=== PATIENT | male | born 1955 | race Caucasian/White ===

== ENCOUNTER 2018-01-16 14:06 | Outpatient (CLI) | payer MEDICARE, SELFPAY ==
[2018-01-16 14:39] LABS: Anion Gap 10.3 mmol/L (3-11); BUN 2 mg/dL (7-18); CO2 29.7 mmol/L (21.0-32.0); CREATININE 0.79 mg/dL (0.70-1.30); Calcium 8.7 mg/dL (8.5-10.1); Chloride 95 mmol/L (98-107); Glucose 107 mg/dL (70-100); Potassium 3.9 mmol/L (3.5-5.1); Sodium 135 mmol/L (136-145)
[2018-01-17 15:02] LABS: Levetiracetam 12.8 mcg/mL
== END 2018-01-16 14:26 ==
PROVIDERS: PCP Family Medicine; Visit Provider Family Medicine
DX: I10 Essential (primary) hypertension (principal); G40.309 Generalized idiopathic epilepsy and epileptic syndromes, not intractable, without status epilepticus; Z51.81 Encounter for therapeutic drug level monitoring; Z79.899 Other long term (current) drug therapy
CPT/HCPCS: 36415; 80048; 80177; 80184

== ENCOUNTER 2019-11-18 02:23 | Outpatient (CLI) | payer MEDICARE, SELFPAY ==
[2019-11-18 13:52] LABS: Anion Gap 4.9 mmol/L (3-11); BUN 3 mg/dL (7-18); CO2 30.1 mmol/L (21.0-32.0); CREATININE 0.71 mg/dL (0.70-1.30); Calcium 8.5 mg/dL (8.5-10.1); Chloride 95 mmol/L (98-107); Glucose 98 mg/dL (74-106); Potassium 3.9 mmol/L (3.5-5.1); Sodium 130 mmol/L (136-145)
[2019-11-18 13:58] LABS: PHENYTOIN (DILANTIN) < 0.5 ug/mL (10.0-20.0)
[2019-11-20 14:52] LABS: Levetiracetam 16.9 mcg/mL
== END 2019-11-18 02:43 ==
PROVIDERS: Visit Provider Family Medicine
DX: I10 Essential (primary) hypertension (principal); G40.409 Other generalized epilepsy and epileptic syndromes, not intractable, without status epilepticus
CPT/HCPCS: 36415; 80048; 80177; 80185

== ENCOUNTER 2020-12-20 03:44 | Outpatient (CLI) | payer MEDICARE, SELFPAY ==
[2020-12-20 11:24] LABS: HCT 39.5 % (40.0-50.0); HGB 13.4 g/dL (13.5-17.5); MCH 31.5 pg (27.0-33.0); MCHC 33.9 % (32.0-36.0); MCV 92.9 fL (80-95); MPV 10.5 fL (8.0-11.0); Platelet Count 242 10^3/uL (130-400); RBC 4.25 10^6/uL (4.36-5.78); RDW 12.6 % (11.8-14.1); RDW-SD 43.2 fL; WBC 5.98 10^3/uL (4.4-10.8)
[2020-12-20 11:55] LABS: ALT 22 U/L (16-63); AST 15 U/L (15-37); Albumin 3.9 g/dL (3.4-5.0); Alkaline Phosphatase 145 U/L (46-116); Anion Gap 5.4 mmol/L (3-11); BUN 3 mg/dL (7-18); Bilirubin, Total 0.2 mg/dL (0.2-1.0); CO2 31.6 mmol/L (21.0-32.0); CREATININE 0.7 mg/dL (0.70-1.30); Calcium 8.7 mg/dL (8.5-10.1); Calculated LDL 82 mg/dL (<100); Chloride 96 mmol/L (98-107); Cholesterol 151 mg/dL (<200); Glucose 78 mg/dL (74-106); HDL Cholesterol 40 mg/dL (40-60); PHENOBARBITAL 36.5 ug/mL (15.0-40.0); Potassium 3.9 mmol/L (3.5-5.1); Sodium 133 mmol/L (136-145); TSH (W/Ref FT4) 0.93 uIU/mL (0.36-3.74); Total Protein 8.1 g/dL (6.4-8.2); Triglyceride 149 mg/dL (<150)
[2020-12-21 10:42] LABS: HIV-1/2 Ag & Ab Screen Negative (Negative)
[2020-12-21 11:02] LABS: Hepatitis C Ab w Rflx HCV PCR Negative (Negative)
== END 2020-12-20 03:45 | disposition home or self-care (01) ==
LOC: LBO 03:44
PROVIDERS: Visit Provider Family Medicine
DX: I10 Essential (primary) hypertension; F17.210 Nicotine dependence, cigarettes, uncomplicated; Z11.59 Encounter for screening for other viral diseases; Z11.4 Encounter for screening for human immunodeficiency virus [HIV]
CPT/HCPCS: 36415; 80053; 80061; 85027; 86803; 87389; 80177; 80184; 84443

== ENCOUNTER 2022-06-04 02:39 | Outpatient (CLI) | payer MEDICARE, SELFPAY ==
[2022-06-04 16:58] LABS: ALT 20 U/L (16-63); AST 17 U/L (15-37); Albumin 3.5 g/dL (3.4-5.0); Alkaline Phosphatase 195 U/L (46-116); Anion Gap 7.3 mmol/L (3-11); BUN 7 mg/dL (7-18); Bilirubin, Total 0.1 mg/dL (0.2-1.0); CO2 28.7 mmol/L (21.0-32.0); CREATININE 0.7 mg/dL (0.70-1.30); Calcium 8.7 mg/dL (8.5-10.1); Chloride 95 mmol/L (98-107); Estimated GFR 102.25 (mL/min/1.73m2); Glucose 98 mg/dL (74-106); Potassium 3.8 mmol/L (3.5-5.1); Sodium 131 mmol/L (136-145)
[2022-06-07 11:20] LABS: Levetiracetam 12.9 mcg/mL
== END 2022-06-04 02:40 | disposition home or self-care (01) ==
LOC: LBO 02:39
PROVIDERS: PCP Nurse Practitioner Family; Visit Provider Nurse Practitioner Family
DX: G40.309 Generalized idiopathic epilepsy and epileptic syndromes, not intractable, without status epilepticus (principal); Z51.81 Encounter for therapeutic drug level monitoring; Z79.899 Other long term (current) drug therapy
CPT/HCPCS: 36415; 80053; 80177

== ENCOUNTER 2022-12-27 19:23 | Emergency (ER) | payer MEDICARE, SELFPAY ==
[2022-12-27] VITALS (28 sets, daily range): BP systolic 131–173; BP diastolic 55–104; PULSE 72–102; RESP 18–29; TEMP 37; O2SAT 90–100
--- NOTE | 2022-12-27 19:15 | RT.EKG_ITS ---
APPROVED REPORT Exam: Resting ECG Reason for Exam: SOB Patient Location: E HR:76 bpm ECG Measurements Heart Rate 76 AXIS MT 187 P 82 QRSd 100 QRS 57 QT 374 T 52 QTc 421 Conclusion Sinus rhythm...normal P axis, V-rate 60- 99 sinus rhythm, normal axis, normal intervals, non ischemic
--- NOTE | 2022-12-27 19:45 | DI.CT_ITS ---
Exam(s) CT CHEST PE CTA EXAM: CT CHEST PE CTA CLINICAL HISTORY: right chest pain, smoker, sob. TECHNIQUE: Imaging Protocol: CT angiography of the chest was performed using pulmonary embolus aiden col. Multi planar reconstructions were performed. CONTRAST MATERIAL: Intravenous: Omnipaque 350 Contrast volume: 100 cc COMPARISON: No exams were available for comparison FINDINGS: CHEST: PULMONARY ARTERIES: There are no intraluminal filling defects to suggest acute pulmonary emboli. LUNGS: There are no confluent infiltrates nor evidence of pulmonary infarction.. There is a [address] noncalcified subpleural nodule in the right lower lobe.. There is another 3 millimeter noncalcif ied nodule in the lateral segment of the right middle lobe. No other lung nodules. No pleural effus ions. MEDIASTINUM: There is no hilar nor mediastinal adenopathy. Visualized thyroid unremarkable. CARDIAC: Heart size is upper normal. There is no pericardial effusion.Caliber of the thoracic aorta is within normal limits. There is no significant shift of the interventricular septum. PARTIALLY VISUALIZED UPPERMOST ABDOMEN: Slight thickening both adrenal glands noted. Small benign cy sts noted in the partially visualized right kidney. Does not require further workup. OSSEOUS: No significant osseous lesions.There fractures of the right 6 rib, 7th rib, 8th rib, 9th rib . These have subacute appearance and are incompletely healed. No other fractures identified.. IMPRESSION: 1. No evidence of acute pulmonary emboli. No evidence of pulmonary infarction.No pleural effusions. 2. No evidence of aortic dissection nor pericardial effusion. 3. Multiple subacute right-sided rib fractures as described above. RADIATION DOSE DELIVERED: Total DLP DATA REPOSITORY: All CT scans at this facility are submitted to the National Radiology Data Registry (NRDR) Dose Index Registry (DIR) with the [employer] (ACR). RADIATION OPTIMIZATION: All CT scans at this facility use at least one of these dose optimization te chniques: automated exposure control; mA and/or kV adjustment per patient size (includes targeted exa ms where dose is matched to clinical indication); or iterative reconstruction.
[2022-12-27 20:03] LABS: Abs Immature Grans 0.03 10^3/uL (0.0-0.06); Absolute Basophil Count 0.01 10^3/uL (0.0-0.2); Absolute Lymphocyte Count 1.84 10^3/uL (1.2-3.4); Absolute Monocyte Count 0.86 10^3/uL (0.1-0.8); Absolute Neutrophil Count 4.69 10^3/uL (1.2-6.7); Basophils % 0.1; HCT 38.8 % (40.0-50.0); HGB 13.5 g/dL (13.5-17.5); Immature Grans % 0.4; Lymphocytes % 24.8; MCH 31.6 pg (27.0-33.0); MCHC 34.8 % (32.0-36.0); MCV 91 fL (80-95); MPV 10.3 fL (8.0-11.0); Monocytes % 11.6; Neutrophils % 63.1; Platelet Count 260 10^3/uL (130-400); RBC 4.27 10^6/uL (4.36-5.78); RDW-SD 39.7 fL; WBC 7.43 10^3/uL (4.4-10.8)
[2022-12-27] MEDS: Albuterol/Ipratropium 3 ML UPD VIAL UPD (20:05)
[2022-12-27] MEDS: methylPREDNISolone SUCC 125 MG VIAL 80 MG IVP (20:05)
[2022-12-27] MEDS: Nicotine 21 MG/24 HR PATCH TD (20:05)
--- NOTE | 2022-12-27 20:16 | ED.GENADUL_ITS ---
Discharge Plan Disposition Patient Disposition: Home Discharge Details Clinical Impression: COPD exacerbation, Hyponatremia, Closed rib fracture Primary Care Provider: Maco Altamirano ED Provider: Sharmaine Leonard Home Meds and New Rx's Prescriptions: New prednisone 20 mg tablet 40 mg PO ONCE Qty: 10 0RF Flovent Diskus 100 mcg/actuation blister with device 2 inh inhalation BID Qty: 60 0RF doxycycline hyclate 100 mg tablet 100 mg PO BID Qty: 20 0RF Continued ketotifen fumarate 0.025 % (0.035 %) drops 1 drp ophthalmic (eye) BID Qty: 5 1RF Rx Instructions: administer at least 8 hours apart, prn watery eyes phenobarbital 64.8 mg tablet 259.2 mg PO HS Qty: 360 3RF levetiracetam [Keppra] 750 mg tablet 750 mg PO BID Qty: 180 3RF sucralfate [Carafate] 1 gram tablet 1 g PO BID PRN (Reason: gerd) Qty: 180 4RF escitalopram oxalate [Lexapro] 10 mg tablet 10 mg PO DAILY Qty: 90 3RF aspirin 81 mg tablet,delayed release (DR/EC) 81 mg PO BID Qty: 90 3RF vitamin B complex Capsule 1 cap PO .QOD lorazepam 1 mg tablet 1 mg PO DAILY Qty: 40 2RF Rx Instructions: 1 daily and 1 as needed for seizure Discontinued albuterol sulfate 90 mcg/actuation HFA aerosol inhaler 2 inh inhalation Q6H PRN (Reason: shortness of breath or wheezing) Qty: 18 4RF Discharge Instructions Instructions: Rib Fracture (ED), Hyponatremia (ED), COPD (Chronic Obstructive Pulmonary Disease) (ED), Pulmonary Nodules (ED) Additional Instructions: Take the Flovent twice a day as prescribed, this is your steroid inhaler Use your Combivent inhaler, 1 puff every 4-6 hours, this is your rescue inhaler for shortness of breath and wheezing Take the doxycycline as prescribed, yogurt daily while on doxycycline We talked about your diet, try to incorporate protein into 3 meals a day, having a boost or Ensure several times a day can also increase your nutrient intake Mens multivitamin with vitamin D Your sodium is low, this could be from multiple factors, I do recommend having your Keppra level reassessed by your neurologist and possibly looking into other causes of your hyponatremia, you may try increasing your sodium intake slightly after consulting with your neurologist, I am also attaching our neurologist information below Please follow-up with your doctor at your scheduled appointment, this is very important and return earlier should you have new or worsening complaints You do have pulmonary nodules on your CAT scan, this warrants additional imagi ng, let your doctor know regarding this finding Referrals: Maco Altamirano NP [Primary Care Provider] - 3 days Lizzy Germain MD [ [facility] STAFF PHYSICIAN] - Medical Decision Making 67-year-old gentleman with multiple comorbidities presenting with report of shortness of breath and right-sided chest pain Vital stable, specifically no hypoxia, hyponatremia 128, typically in the 130s, afebrile, nontoxic, CTA chest was ordered for further evaluation, evidence of seventh and ninth chronic rib fractures, pulmonary nodules, patient made aware need for follow-up Hyponatremia, patient is on Keppra which can cause hyponatremia, the differential courses adrenal insufficiency multiple other etiologies, will refer back to primary care physician, recommendation to follow-up with neurologist as well Suspect COPD exacerbation, given Solu-Medrol, 2 DuoNebs, ambulatory trial, patient was able to ambulate for a minutes and did not desat below 94%, at this time I think he stable for discharge home, he will need to follow-up closely with his primary care physician regarding his hyponatremia and COPD, will place patient on Flovent, prednisone 40, doxycycline for COPD exacerbation, Combivent inhaler, and he actually is an appointment scheduled on Saturday, he is encouraged to keep this appointment Return precautions reviewed and patient expressed understanding Discharged home in stable condition with stable vitals, will follow up with pulmonary nodules repeat assessment Discharged home in care of Also long discussion regarding patient's dietary habits HPI General Date/Time Provider Initiated Documentation: 12/27/22 19:26 . HPI Narrative: 67-year-old gentleman with history of depression smoker presents with report of shortness of breath and chest pain, has had cough for many years but worse this week with some shortness of breath and right chest pain, pleuritic. Denies known trauma. Smokes approximately 2 and half packs a day. Was wheezing and short of breath did receive a DuoNeb by EMS, no hypoxia per EMS. 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 Related Data Home Medications Medication Instructions Recorded Confirmed vitamin B complex 1 cap PO .QOD 11/13/19 12/27/22 aspirin 81 mg tablet,delayed 81 mg PO BID #90 tabs 06/08/22 12/27/22 release escitalopram oxalate 10 mg tablet 10 mg PO DAILY #90 tab-caps 06/08/22 12/27/22 (Lexapro) ketotifen fumarate 0.025 % (0.035 1 drp ophthalmic (eye) BID #5 mL 06/08/22 12/27/22 %) eye drops levetiracetam 750 mg tablet 750 mg PO BID #180 tab-caps 06/08/22 12/27/22 (Keppra) phenobarbital 64.8 mg tablet 259.2 mg (4 x 64.8 mg) PO HS #360 06/08/22 12/27/22 tab-caps sucralfate 1 gram tablet (Carafate) 1 g PO BID PRN gerd #180 tab-caps 06/08/22 12/27/22 lorazepam 1 mg tablet 1 mg PO DAILY #40 tabs 09/25/22 12/27/22 doxycycline hyclate 100 mg tablet 100 mg PO BID #20 tabs 12/27/22 fluticasone propionate 100 2 inh inhalation BID #60 ea 12/27/22 mcg/actuation blister powder for inhalation (Flovent Diskus) prednisone 20 mg tablet 40 mg (2 x 20 mg) PO ONCE #10 tabs 12/27/22 Previous Rx's Medication Instructions Recorded aspirin 81 mg tablet,delayed 81 mg PO BID #90 tabs 06/08/22 release escitalopram oxalate 10 mg tablet 10 mg PO DAILY #90 tab-caps 06/08/22 (Lexapro) ketotifen fumarate 0.025 % (0.035 1 drp ophthalmic (eye) BID #5 mL 06/08/22 %) eye drops levetiracetam 750 mg tablet 750 mg PO BID #180 tab-caps 06/08/22 (Keppra) phenobarbital 64.8 mg tablet 259.2 mg (4 x 64.8 mg) PO HS #360 06/08/22 tab-caps sucralfate 1 gram tablet (Carafate) 1 g PO BID PRN gerd #180 tab-caps 06/08/22 lorazepam 1 mg tablet 1 mg PO DAILY #40 tabs 09/25/22 doxycycline hyclate 100 mg tablet 100 mg PO BID #20 tabs 12/27/22 fluticasone propionate 100 2 inh inhalation BID #60 ea 12/27/22 mcg/actuation blister powder for inhalation (Flovent Diskus) prednisone 20 mg tablet 40 mg (2 x 20 mg) PO ONCE #10 tabs 12/27/22 Allergies Allergy/AdvReac Type Severity Reaction Status Date / Time zonisamide Allergy Unknown Verified 12/27/22 19:38 sertraline AdvReac Intermediate Verified 12/27/22 19:38 cefuroxime AdvReac Unknown Verified 12/27/22 19:38 guaifenesin AdvReac Unknown Verified 12/27/22 19:38 General Stated Complaint: SOB LAMONT: 2 PFSH All Active Problems (Updated 12/27/22 @ 22:00 by LAMBERT Elkins) Closed rib fracture (Acute) Hyponatremia (Acute) COPD exacerbation (Acute) 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 1196 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 Father No problems noted. Social History Smoking/Tobacco Use Status: Current every day Tobacco Type: cigarettes Quit status: considering quitting Second Hand Exposure: Yes Smoking risk assessment performed?: Yes Alcohol Intake: former Drug use: Never Substance use type: does not use Counseling given: Yes Caregiver/Support person: No Household members: spouse Housing: house Communication Needs: None Do you need help understanding health information?: Never Pets and animals: No Sexually active: No Do you think of yourself as: straight/heterosexual Current gender identity: decline to answer What is your relationship status?: How often do you talk on the phone with friends or family?: three or more times per week How often do you get together with friends or relatives?: decline to answer How often do you attend mormonism or congregational services?: decline to answer Do you belong to any clubs or organized social groups?: no Panel score (0-1 are the most socially isolated patients): 2 What type of physical activity do you participate in: decline to answer Duration: decline to answer Frequency: decline to answer Danette/Buddhist: No preference Special danette needs: No Seatbelt use: sometimes Helmet use: Yes Helmet use: always Drive intox or ride w/intox racing driver: No Do you feel safe in your relationship?: Yes Course Vital Signs Vital signs: Vital Signs Temperature 37.0 C 12/27/22 19:29 Pulse 80 12/27/22 19:29 Respiratory Rate 23 12/27/22 19:29 Blood Pressure 162/75 H 12/27/22 19:29 Pulse Oximetry 99 12/27/22 19:29 Temperature 37.0 C 12/27/22 19:29 Temperature Source Temporal Artery Scan 12/27/22 19:29 Pulse 80 12/27/22 19:29 Respiratory Rate 23 12/27/22 19:29 Respiratory Effort Normal 12/27/22 19:34 Blood Pressure 162/75 H 12/27/22 19:29 Pulse Oximetry 99 12/27/22 19:29 Oxygen Delivery Method Room Air 12/27/22 19:29 Oxygen Flow Rate 0 12/27/22 19:29 Pain Level 8 12/27/22 19:29 Lab/Test Results Lab/Test Results: Laboratory Tests Range/Units 12/27/22 19:30 WBC (4.4-10.8) 10^3/uL 7.43 RBC (4.36-5.78) 10^6/uL 4.27 L Hgb (13.5-17.5) g/dL 13.5 Hct (40.0-50.0) % 38.8 L MCV (80-95) fL 91 MCH (27.0-33.0) pg 31.6 MCHC (32.0-36.0) % 34.8 RDW (11.8-14.1) % 12.0 Plt Count (130-400) 10^3/uL 260 MPV (8.0-11.0) fL 10.3 Immature Gran % 0.4 Neutrophils % 63.1 Lymphocytes % 24.8 Monocytes % 11.6 Eosinophils % 0.0 Basophils % 0.1 Nucleated RBC % (0.0-0.3) % 0.0 Absolute Neutrophils (1.2-6.7) 10^3/uL 4.69 Absolute Lymphocytes (1.2-3.4) 10^3/uL 1.84 Absolute Monocytes (0.1-0.8) 10^3/uL 0.86 H Absolute Eosinophils (0.0-0.7) 10^3/uL 0.00 Absolute Basophils (0.0-0.2) 10^3/uL 0.01
[2022-12-27 20:23] LABS: ALT 16 U/L (16-63); AST 16 U/L (15-37); Albumin 3.6 g/dL (3.4-5.0); Alkaline Phosphatase 163 U/L (46-116); Anion Gap 4.4 mmol/L (3-11); BUN 1 mg/dL (7-18); Bilirubin, Total 0.2 mg/dL (0.2-1.0); CO2 31.6 mmol/L (21.0-32.0); CREATININE 0.7 mg/dL (0.70-1.30); Calcium 9.1 mg/dL (8.5-10.1); Chloride 92 mmol/L (98-107); Estimated GFR 101.62 (mL/min/1.73m2); Glucose 118 mg/dL (74-106); Lipase 25 U/L (16-77); Potassium 3.7 mmol/L (3.5-5.1); Sodium 128 mmol/L (136-145); Total Protein 7.9 g/dL (6.4-8.2); Troponin I < 50 ng/L (<or=60)
[2022-12-27] MEDS: Normal Saline - Diluent 50 ML VIAL IJ (20:55)
[2022-12-27] MEDS: Omnipaque 350 MG/ML 100 ML BTL IJ (20:56)
[2022-12-27] MEDS: Normal Saline 1,000 ML 1000 ML IV (21:00)
--- NOTE | 2022-12-27 21:13 | DI.VRAD_ITS ---
PROCEDURE INFORMATION: Exam: CTA Chest With Contrast Exam date and time: 12/27/2022 8:50 PM Age: 67 years old Clinical indication: Shortness of breath and other: Right chest pain, smoker; Patient HX: Right chest pain, smoker, SOB TECHNIQUE: Imaging protocol: Computed tomographic angiography of the chest with contrast. Exam focused on the arteries. 3D rendering (Not supervised by radiologist): MIP and/or 3D reconstructed images were created by the technologist. Contrast material: OMNIPAQUE 350; Contrast volume: 100 ml; Contrast route: INTRAVENOUS (IV); COMPARISON: No relevant prior studies available. FINDINGS: Pulmonary arteries: No acute pulmonary emboli. Aorta: Atherosclerotic disease of the thoracic aorta, without aneurysm or dissection. Lungs: Mild bilateral upper and lower lobe bronchial wall thickening, compatible with reactive airway disease or bronchitis. Pleural spaces: 5 mm noncalcified subpleural pulmonary nodule within the periphery of the right upper lobe (series 7, image 309) and 5 mm pleural based pulmonary nodule within the posterior aspect of the right upper lobe (series 7, image 209). Heart: Unremarkable. No cardiomegaly. No pericardial effusion. Lymph nodes: Unremarkable. No enlarged lymph nodes. Diaphragm: Small-sized hiatal hernia. Bones/joints: Multilevel thoracic spine degenerative disc space narrowing and osteophyte formation. Old right posterolateral 7th through 9th rib fractures. Soft tissues: Unremarkable. IMPRESSION: 1. No acute pulmonary emboli. 2. 5 mm noncalcified subpleural pulmonary nodule within the periphery of the right upper lobe (series 7, image 309) and 5 mm pleural based pulmonary nodule within the posterior aspect of the right upper lobe (series 7, image 209). 3. Mild bilateral upper and lower lobe bronchial wall thickening, compatible with reactive airway disease or bronchitis. Dictated and Authenticated by: Ernesto Mccarty MD. Ordering:PENNY Schmid MD
[2022-12-27] MEDS: Doxycycline Hyclate 100 MG CAP PO (23:01)
[2022-12-27] MEDS: Ipratropium/Albuterol 4 GM 120 PUFF INH IH (23:02)
== END 2022-12-27 23:04 | disposition home or self-care (01) ==
PROVIDERS: Emergency Provider Physician Assistant; PCP Nurse Practitioner Family
DX: J44.1 Chronic obstructive pulmonary disease with (acute) exacerbation (principal); E87.1 Hypo-osmolality and hyponatremia; M84.48XD Pathological fracture, other site, subsequent encounter for fracture with routine healing; R91.8 Other nonspecific abnormal finding of lung field; I10 Essential (primary) hypertension; I69.351 Hemiplegia and hemiparesis following cerebral infarction affecting right dominant side; F17.210 Nicotine dependence, cigarettes, uncomplicated; Z79.899 Other long term (current) drug therapy; Z79.82 Long term (current) use of aspirin
CPT/HCPCS: 36415; 71275; 80053; 83690; 93005; 94640; 96361; 96374; 99285; 84484; 85025; 93010; 99284; J2930; J3490; J7620

== ENCOUNTER 2023-01-18 04:16 | Outpatient (CLI) | payer MEDICARE, SELFPAY ==
[2023-01-18 14:32] LABS: Abs Immature Grans 0.01 10^3/uL (0.0-0.06); Absolute Basophil Count 0.02 10^3/uL (0.0-0.2); Absolute Lymphocyte Count 1.82 10^3/uL (1.2-3.4); Absolute Neutrophil Count 2.82 10^3/uL (1.2-6.7); Basophils % 0.4; HCT 39.8 % (40.0-50.0); HGB 13.6 g/dL (13.5-17.5); Immature Grans % 0.2; Lymphocytes % 33.9; MCHC 34.2 % (32.0-36.0); MCV 94 fL (80-95); MPV 9.9 fL (8.0-11.0); Neutrophils % 52.5; Platelet Count 241 10^3/uL (130-400); RBC 4.25 10^6/uL (4.36-5.78); RDW 12.4 % (11.8-14.1); RDW-SD 43.3 fL; WBC 5.37 10^3/uL (4.4-10.8)
[2023-01-18 15:06] LABS: ALT 20 U/L (16-63); AST 16 U/L (15-37); Albumin 3.8 g/dL (3.4-5.0); Alkaline Phosphatase 190 U/L (46-116); Anion Gap 8.6 mmol/L (3-11); BUN 3 mg/dL (7-18); Bilirubin, Total 0.2 mg/dL (0.2-1.0); CO2 30.4 mmol/L (21.0-32.0); CREATININE 0.7 mg/dL (0.70-1.30); Calcium 9.2 mg/dL (8.5-10.1); Chloride 94 mmol/L (98-107); Estimated GFR 101.62 (mL/min/1.73m2); Glucose 94 mg/dL (74-106); PHENOBARBITAL 32.6 ug/mL (15.0-40.0); Potassium 3.4 mmol/L (3.5-5.1); Sodium 133 mmol/L (136-145); Total Protein 7.9 g/dL (6.4-8.2)
[2023-01-21 11:23] LABS: Lyme Ab w Rflx to Lyme Confirm Negative (Negative); Syphilis Serology (RPR) Negative (Negative)
[2023-01-21 13:32] LABS: Levetiracetam 14.6 mcg/mL
[2023-01-21 14:55] LABS: ANA Interpretation Negative (Negative)
[2023-01-21 14:58] LABS: Angiotensin Converting Enzyme 57 U/L (16 - 85)
[2023-01-21 15:05] LABS: HLA-B27 Result Negative
[2023-01-21 15:28] LABS: c-ANCA Negative (Negative); p-ANCA Negative (Negative)
== END 2023-01-18 04:17 | disposition home or self-care (01) ==
LOC: LBO 04:16
PROVIDERS: PCP Nurse Practitioner Family; Visit Provider Optometrist
DX: G40.309 Generalized idiopathic epilepsy and epileptic syndromes, not intractable, without status epilepticus (principal); H20.11 Chronic iridocyclitis, right eye
CPT/HCPCS: 36415; 80053; 82164; 86812; 80177; 80184; 85025; 86038; 86255; 86592; 86618

== ENCOUNTER 2023-02-12 13:24 | Emergency (ER) | payer MEDICARE, SELFPAY ==
[2023-02-12] VITALS (12 sets, daily range): BP systolic 119–158; BP diastolic 49–87; PULSE 84–101; RESP 20; TEMP 36.9; O2SAT 90–97
--- NOTE | 2023-02-12 13:45 | RT.EKG_ITS ---
APPROVED REPORT Exam: Resting ECG Reason for Exam: cough, mild CP Patient Location: E HR:97 bpm ECG Measurements Heart Rate 97 AXIS SC 152 P 47 QRSd 89 QRS 71 QT 340 T 63 QTc 432 Conclusion Sinus rhythm...normal P axis, V-rate 60- 99 sinus rhtyhm, normal axis, normal intervals, non ischemic
--- NOTE | 2023-02-12 13:48 | DI.RAD_ITS ---
Exam(s) XR CHEST 2V PA LATERAL EXAM: XR CHEST 2V PA LATERAL CLINICAL HISTORY: fever, cough TECHNIQUE: 2D digital imaging was performed. COMPARISON: CT CT CHEST PE CTA from 12/27/2022 FINDINGS: HEART: Normal size. Aorta: Mildly ectatic. PULMONARY VASCULATURE: Normal. LUNGS: Clear. PLEURAL SPACE: No pleural effusion or pneumothorax. BONE:Old right rib fractures. Soft tissues: Unremarkable. IMPRESSION: No acute abnormality. DATA REPOSITORY: RADIATION DOSE DELIVERED:
--- NOTE | 2023-02-12 13:48 | DI.CT_ITS ---
Exam(s) CT ABDOMEN PELVIS W EXAM: CT ABDOMEN PELVIS W CLINICAL HISTORY: abdominal pain, constipation. TECHNIQUE: Imaging Protocol: Axial computed tomography images with coronal and sagittal reformatted images were created and reviewed CONTRAST MATERIAL: Intravenous: Omnipaque-350 100cc Oral: None COMPARISON: CT CT CHEST PE CTA from 12/27/2022 FINDINGS: VISUALIZED LUNG BASES: Multiple subacute appearing right rib fractures again noted. Visualized lung bases are clear. No lung contusion or pleural effusion. No infiltrates. No pneumothorax.. ABDOMEN: There is no ascites. GI: No evidence of bowel obstruction. There is sigmoid diverticuli without evidence of obvious acute diverticulitis and there is no evidence of appendicitis. There is abundant air in the colon. The t ransverse colon is quite redundant. Filled with air and fluid. No true constipation. Appendix appe ars unremarkable. Terminal ileum unremarkable. LIVER: There are no significant focal hepatic lesions evident. No dilated intrahepatic ducts. GALLBLADDER/BILIARY: No obvious gallbladder pathology. CBD is not dilated. PANCREAS: No evidence of pancreatic mass nor dilatation of the pancreatic duct. SPLEEN: Spleen is not enlarged. No obvious intrasplenic lesions. Splenic and portal veins are paten t. ADRENALS: There are no significant adrenal masses. KIDNEYS:There is a small benign cyst in the posterior cortex of the right kidney which measures 1.7 x 1.6 cm. Does not require further imaging workup. Even smaller benign cysts noted in the inferior p ole region. Tiny calcification in the right renal hilum is most probably vascular. No focal finding s in the left kidney. No solid renal masses. No hydronephrosis. No hydroureter. The bladder is so mewhat distended in the patient has an enlarged prostate.. ABDOMINAL AORTA: The abdominal aorta is significantly atherosclerotic and mildly prominent with maxim um external diameter 2.6 cm. There is also fusiform dilatation of the mid aspect of the right common iliac artery with luminal diameter of 1.8 cm. There is no similar finding in the opposite-left comm on iliac artery. No aneurysms of the external and internal iliac arteries nor of the common femoral arteries. No dissection flaps evident in the aorta and iliac vessels. LYMPH NODES:There is no retroperitoneal nor paraaortic adenopathy. ABDOMINAL WALL: No evidence of significant anterior abdominal wall nor inguinal hernia. PELVIS: GI: No evidence of appendicitis.Diverticulosis sigmoid without evidence of obvious acute diverticulit is. LYMPH NODES: There is no intrapelvic nor inguinal adenopathy. REPRODUCTIVE: Enlarged prostate gland. URINARY BLADDER: Mild thickening of the bladder wall. No radiopaque calculi. OSSEOUS: There is a nonacute fracture of the inferior pubic ramus left side. No acute pelvic fractur es there is superior endplate compression of L1 which is unchanged from 12/27/2022. IMPRESSION: 1. The colon is distended and filled with air to the level of the descending colon where there does n ot appear to be an obvious obstructing lesion nor extrinsic compression. No true constipation. 2. There is sigmoid diverticulosis without evidence of obvious acute diverticulitis. Also no appendi citis. 3. Abdominal aorta is atherosclerotic. 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 No dissection at this level. 4. No ascites nor free air. Enlarged prostate gland and moderately distended urinary bladder. Called by myself to ER provider. RADIATION DOSE DELIVERED: Total DLP DATA REPOSITORY: All CT scans at this facility are submitted to the National Radiology Data Registry (NRDR) Dose Index Registry (DIR) with the [employer] ([employer]). RADIATION OPTIMIZATION: All CT scans at this facility use at least one of these dose optimization te chniques: automated exposure control; mA and/or kV adjustment per patient size (includes targeted exa ms where dose is matched to clinical indication); or iterative reconstruction.
[2023-02-12] MEDS: Ketorolac 15 MG/ML VIAL IVP (14:05)
[2023-02-12] MEDS: ACETAMINOPHEN 1,000 MG/100 ML BTL 400 MG IVPB (14:05)
[2023-02-12] MEDS: Normal Saline 1,000 ML 1000 ML IV (14:06)
[2023-02-12] MEDS: Ondansetron 4 MG/2 ML VIAL IVP (14:06)
[2023-02-12 14:09] LABS: Lactate 1.5 mmol/L (0.6-1.4)
[2023-02-12 14:10] LABS: Absolute Basophil Count 0.02 10^3/uL (0.0-0.2); Absolute Lymphocyte Count 0.95 10^3/uL (1.2-3.4); Absolute Monocyte Count 1.31 10^3/uL (0.1-0.8); Basophils % 0.1; HCT 35.9 % (40.0-50.0); HGB 12.3 g/dL (13.5-17.5); Immature Grans % 0.6; Lymphocytes % 6.1; MCH 31.6 pg (27.0-33.0); MCHC 34.3 % (32.0-36.0); MCV 92 fL (80-95); MPV 9.9 fL (8.0-11.0); Monocytes % 8.4; Neutrophils % 84.8; Platelet Count 442 10^3/uL (130-400); RBC 3.89 10^6/uL (4.36-5.78); RDW 12.2 % (11.8-14.1); RDW-SD 40.8 fL; WBC 15.54 10^3/uL (4.4-10.8)
[2023-02-12 14:12] LABS: Absolute Neutrophil Count 13.18 10^3/uL (1.2-6.7)
--- NOTE | 2023-02-12 14:17 | W.ED.GENAD ---
Discharge Plan Discharge Details Chief Complaint: Abd Prob Primary Care Provider: Mcao Altamirano ED Provider: Esteban Ordaz Home Meds and New Rx's Prescriptions: No Action levetiracetam [Keppra] 750 mg tablet 750 mg PO BID Qty: 180 3RF sucralfate [Carafate] 1 gram tablet 1 g PO BID PRN (Reason: gerd) Qty: 180 4RF escitalopram oxalate [Lexapro] 10 mg tablet 10 mg PO DAILY Qty: 90 3RF aspirin 81 mg tablet,delayed release (DR/EC) 81 mg PO BID Qty: 90 3RF nicotine [Nicoderm CQ] 21 mg/24 hr patch 24 hour 1 patch transdermal Q24H Qty: 28 0RF vitamin B complex Capsule 1 cap PO .QOD phenobarbital 64.8 mg tablet 259.2 mg PO HS Qty: 360 3RF lorazepam 1 mg tablet 1 mg PO DAILY Qty: 40 2RF Rx Instructions: 1 daily and 1 as needed for seizure fluticasone propionate [Flovent Diskus] 100 mcg/actuation blister with device 2 inh inhalation BID Qty: 180 4RF Medical Decision Making This dictation utilizes [id number] dictation software and may contain unedited grammatical errors. 67 y/o M presents to ED today with a chief complaint of intestinal blockage for 1 month, ongoing general malaise, being worked up for possible lung malignancy/nodules- active heavy smoker, requiring O2 by NC per EMS, currently at 1L. Onset and characteristics include does pass gas, does stain the toilet paper each morning but endorses barely any stools for one month, with umbilical abdominal pain. Patients' medical history: COPD, hypertension, GERD, epilepsy, history of alcoholism. Family and social history: 100+ pack year history. Pertinent exam findings / vital signs include labored respirations with adventitious lung sounds diffusely, nonperitoneal abdomen, nontoxic vitals, mentating normally. Differential / pathologies of concern include SBO, hernia, incarcerated hernia, hypoxemic respiratory failure, COPD exacerbation, sepsis. Diagnostic studies of: -CBC, CMP, lactate, lipase, blood cultures, trop I, Mg++, EKG, UA, CXR, CT ABD/Pelvis w Contrast. -WBCs 15 -CMP shows mild hypo-Na+, mild elev alk phos-chronic - lactate 1.5 initially, receiving 1L IVF, w re-check pending - mild low magnesium 1.6, reasonable for outpatient PO supplements -trop I negative -lipase wnl Interventions of: -IV fluids, re-check lactate, infection search with CXR > CTAP pending at sign-out. ED Course/Assessment/Plan: Very unwell appearing 67-year-old male presents by EMS on 1 L O2 by nasal cannula reports 1 month of constipation with small amounts of stool, has a nonperitoneal abdomen, does have elevated white blood cells without elevated lactate above 2.0, infection search pending as well as acute abdominal pathology such as hernia, he does not have pain out of proportion to exam, he is not on blood thinners but he is being worked up for suspicious pulmonary nodules. Patient signed out to oncoming provider Fiona Morrow NP at sign-out with imaging pending. Findings not consistent with sepsis, ACS. Disposition of Abdominal Pain of Unknown Cause. Patient verbalized understanding of the plan and return to ED criteria and engaged in shared decision making. Medical Records Medical records reviewed: Yes I reviewed the patient's medical records. Lab Data Labs: 02/12/23 14:19 Blood Blood Culture - Pending 02/12/23 13:48 Blood Blood Culture - Pending Laboratory Tests Range/Units 02/12/23 13:48 WBC (4.4-10.8) 10^3/uL 15.54 H RBC (4.36-5.78) 10^6/uL 3.89 L Hgb (13.5-17.5) g/dL 12.3 L Hct (40.0-50.0) % 35.9 L MCV (80-95) fL 92 MCH (27.0-33.0) pg 31.6 MCHC (32.0-36.0) % 34.3 RDW (11.8-14.1) % 12.2 Plt Count (130-400) 10^3/uL 442 H MPV (8.0-11.0) fL 9.9 Immature Gran % 0.6 Neutrophils % 84.8 Lymphocytes % 6.1 Monocytes % 8.4 Eosinophils % 0.0 Basophils % 0.1 Nucleated RBC % (0.0-0.3) % 0.0 Absolute Neutrophils (1.2-6.7) 10^3/uL 13.18 H Absolute Lymphocytes (1.2-3.4) 10^3/uL 0.95 L Absolute Monocytes (0.1-0.8) 10^3/uL 1.31 H Absolute Eosinophils (0.0-0.7) 10^3/uL 0.00 Absolute Basophils (0.0-0.2) 10^3/uL 0.02 VBG Lactate (0.6-1.4) mmol/L 1.5 H Sodium (136-145) mmol/L 131 L Potassium (3.5-5.1) mmol/L 4.3 Chloride (98-107) mmol/L 94 L Carbon Dioxide (21.0-32.0) mmol/L 29.7 Anion Gap (3-11) mmol/L 7.3 BUN (7-18) mg/dL 7 Creatinine (0.70-1.30) mg/dL 0.9 Est GFR (CKD-EPI 2020) (mL/min/1.73m2) 94.19 Glucose (74-106) mg/dL 103 Calcium (8.5-10.1) mg/dL 9.1 Magnesium (1.8-2.4) mg/dL 1.6 L Total Bilirubin (0.2-1.0) mg/dL 0.3 AST (15-37) U/L 23 ALT (16-63) U/L 26 Alkaline Phosphatase (46-116) U/L 139 H Troponin I (<or=60) ng/L < 50 Total Protein (6.4-8.2) g/dL 8.6 H Albumin (3.4-5.0) g/dL 3.1 L Lipase (16-77) U/L 26 HPI General Date/Time Provider Initiated Documentation: 02/12/23 13:41. HPI Narrative: 67 year-old male presents to ED today by EMS with a chief complaint of abdominal blockage for 1 month- states he has about 1 BM a day that just stains the TP, cough with ongoing workup for lung nodules, requiring O2 by NC with EMS with onset noted for at least a month. Quality described as generalized malaise, coughing all the time, constipation, does endorse passing gas, states fevers intermittent chronically, denies chest pain, no radiation to slurred speech, confusion. Patient states his pain is around his umbilicus. Severity is described as 8-9/10 but easily palpates the area of pain firmly. Palliating factors include nothing specific attempted. Provoking factors include nothing specific. Patient not anticoagulated. Related Data Home Medications Medication Instructions Recorded Confirmed vitamin B complex 1 cap PO .QOD 11/13/19 02/12/23 aspirin 81 mg tablet,delayed 81 mg PO BID #90 tabs 06/08/22 02/12/23 release escitalopram oxalate 10 mg tablet 10 mg PO DAILY #90 tab-caps 06/08/22 02/12/23 (Lexapro) levetiracetam 750 mg tablet 750 mg PO BID #180 tab-caps 06/08/22 02/12/23 (Keppra) sucralfate 1 gram tablet (Carafate) 1 g PO BID PRN gerd #180 tab-caps 06/08/22 02/12/23 nicotine 21 mg/24 hr daily 1 patch transdermal Q24H #28 ea 01/02/23 02/12/23 transdermal patch (Nicoderm CQ) lorazepam 1 mg tablet 1 mg PO DAILY #40 tabs 01/18/23 02/12/23 phenobarbital 64.8 mg tablet 259.2 mg (4 x 64.8 mg) PO HS #360 01/18/23 02/12/23 tab-caps fluticasone propionate 100 2 inh inhalation BID #180 ea 01/19/23 02/12/23 mcg/actuation blister powder for inhalation (Flovent Diskus) Previous Rx's Medication Instructions Recorded aspirin 81 mg tablet,delayed 81 mg PO BID #90 tabs 06/08/22 release escitalopram oxalate 10 mg tablet 10 mg PO DAILY #90 tab-caps 06/08/22 (Lexapro) levetiracetam 750 mg tablet 750 mg PO BID #180 tab-caps 06/08/22 (Keppra) sucralfate 1 gram tablet (Carafate) 1 g PO BID PRN gerd #180 tab-caps 06/08/22 nicotine 21 mg/24 hr daily 1 patch transdermal Q24H #28 ea 01/02/23 transdermal patch (Nicoderm CQ) lorazepam 1 mg tablet 1 mg PO DAILY #40 tabs 01/18/23 phenobarbital 64.8 mg tablet 259.2 mg (4 x 64.8 mg) PO HS #360 01/18/23 tab-caps fluticasone propionate 100 2 inh inhalation BID #180 ea 01/19/23 mcg/actuation blister powder for inhalation (Flovent Diskus) Allergies Allergy/AdvReac Type Severity Reaction Status Date / Time zonisamide Allergy Unknown Verified 02/12/23 13:33 sertraline AdvReac Intermediate Verified 02/12/23 13:33 cefuroxime AdvReac Unknown Verified 02/12/23 13:33 guaifenesin AdvReac Unknown Verified 02/12/23 13:33 General Stated Complaint: Abd Prob LAMONT: 3 Review of Systems All systems reviewed & are unremarkable except as noted in HPI and below PFSH All Active Problems (Updated 01/29/23 @ 16:46 by Maco Majano NP) Chronic anterior uveitis of right eye (Acute) Frequent falls (Acute) Lung nodules (Acute) 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) post surgical due to brain abscess Hyponatremia (Acute) 12/2020- History of knee surgery (Acute) Depression (Chronic) Smoker (Acute) 100 plus pack years smoking Low back pain (Acute) History of alcoholism (Acute) Generalized osteoarthrosis (Acute) right knee Generalized convulsive epilepsy (Acute) Gastroesophageal reflux disease (Acute) Essential hypertension (Acute 01/22/13) Chronic obstructive lung disease (Acute) Benign esophageal stricture (Acute) dilated 07/13 Medical History (Updated 01/29/23 @ 16:46 by Maco Majano NP) Decreased vision of right eye Surgical History KNEE REPAIR (~1999) LEFT ESOPHAGEAL REPAIR (~2004) STRICTURE Family History Mother No problems noted. Father No problems noted. Social History Smoking/Tobacco Use Status: Current every day Tobacco Type: cigarettes Quit status: considering quitting Second Hand Exposure: Yes Smoking risk assessment performed?: Yes Alcohol Intake: former Drug use: Never Substance use type: does not use Counseling given: Yes Caregiver/Support person: No Household members: spouse Housing: house Communication Needs: None Do you need help understanding health information?: Never Pets and animals: No Sexually active: No Do you think of yourself as: straight/heterosexual Current gender identity: decline to answer What is your relationship status?: How often do you talk on the phone with friends or family?: three or more times per week How often do you get together with friends or relatives?: decline to answer How often do you attend evangelical or judaism services?: decline to answer Do you belong to any clubs or organized social groups?: no Panel score (0-1 are the most socially isolated patients): 2 What type of physical activity do you participate in: decline to answer Duration: decline to answer Frequency: decline to answer Danette/Denominational: No preference Special danette needs: No Seatbelt use: sometimes Helmet use: Yes Helmet use: always Drive intox or ride w/intox tractor driver teamster: No Do you feel safe at home: Yes Do you feel safe in your relationship?: Yes Exam Narrative Exam Narrative: GENERAL APPEARANCE: Mal-nourished, non-toxic, awake and alert, atraumatic, moderate acute distress. SKIN: Warm, pink, dry, intact, without rashes/lesions/ulcerations. HEAD: Normocephalic, atraumatic, normal hair distribution for gender/age. EYES: Pupils PERRLA, EOMs intact without nystagmus, normal conjunctiva, no exudates on lids/lashes. ENT: Nares patent, no circumoral cyanosis, no facial swelling NECK: Supple, trachea midline, painless cervical ROM. LUNGS/CHEST: Lungs adventitious throughout- no overt crackles at bases, labored respirations, normal A/P diameter, symmetrical expansion, no chest wall deformity HEART (CV/PV): Regular rate and rhythm without murmur, no peripheral edema, no JVD. ABDOMEN: Soft, non-distended, no guarding, tenderness periumbilical without rebound tenderness, no Rovsing's, negative Wagner sign, no McBurney's point tenderness, no pulsatile masses felt, no large umbilical hernia palpated. MSK: Normal ROM, no swelling/deformity to bilateral UEs or LEs, moving all extremities without weakness, no cyanosis, spine midline without tenderness, normal curvature. NEURO: Mental Status AAOx4 - alert to person, place, time, events No facial droop, no forehead involvement. Motor: No focal weakness - strength 5/5 in bilateral UEs and LEs, proximal and distal, symmetric. Sensory: sensation intact to light touch globally. Gait NT. PSYCH: euthymic, cooperative, pleasant, appropriate speech Course 02/12/23 13:48 CT abdomen & pelvis w [CT] Stat Cardiac Troponin I Stat Comprehensive Metabolic Panel Stat Lactate Stat Lipase Stat Magnesium Stat Complete Blood Count w/Diff [HEMO] Stat Acetaminophen [Ofirmev] 1,000 mg in 100 ml IVPB ONCE Ketorolac [Toradol Injection] 15 mg IVP NOW ONE Normal Saline [Saline 1000ml Bag] 1,000 ml IV BOLUS Ondansetron [Zofran Injection] 4 mg IVP STAT STA XR chest 2V PA & lateral [RAD] Stat ED EKG Stat EKG Nursing/RT Intervention .STAT Urinalysis [URIN] Stat 02/12/23 13:54 Ketorolac [Toradol Injection] 30 mg .ROUTE .STK-MED ONE 02/12/23 14:19 Blood Culture ( Age => 10 Yrs) Stat 02/12/23 16:48 Cardiac Troponin I Timed Vital Signs Vital signs: Vital Signs Temperature 36.9 C 02/12/23 13:24 Pulse 98 H 02/12/23 13:24 Respiratory Rate 20 02/12/23 13:24 Blood Pressure 145/60 H 02/12/23 13:24 Pulse Oximetry 96 02/12/23 13:24 Temperature 36.9 C 02/12/23 13:24 Temperature Source Oral 02/12/23 13:24 Pulse 98 H 02/12/23 13:24 Respiratory Rate 20 02/12/23 13:24 Respiratory Effort Short of Breath 02/12/23 13:30 Blood Pressure 145/60 H 02/12/23 13:24 Blood Pressure Position Sitting 02/12/23 13:24 Pulse Oximetry 96 02/12/23 13:24 Oxygen Delivery Method Nasal Cannula 02/12/23 13:24 Oxygen Flow Rate 2 02/12/23 13:24 Lab/Test Results Lab/Test Results: 02/12/23 13:48 Blood Blood Culture - Pending 02/12/23 13:50 Blood Blood Culture - Pending Laboratory Tests Range/Units 02/12/23 13:48 WBC (4.4-10.8) 10^3/uL 15.54 H RBC (4.36-5.78) 10^6/uL 3.89 L Hgb (13.5-17.5) g/dL 12.3 L Hct (40.0-50.0) % 35.9 L MCV (80-95) fL 92 MCH (27.0-33.0) pg 31.6 MCHC (32.0-36.0) % 34.3 RDW (11.8-14.1) % 12.2 Plt Count (130-400) 10^3/uL 442 H MPV (8.0-11.0) fL 9.9 Immature Gran % 0.6 Neutrophils % 84.8 Lymphocytes % 6.1 Monocytes % 8.4 Eosinophils % 0.0 Basophils % 0.1 Nucleated RBC % (0.0-0.3) % 0.0 Absolute Neutrophils (1.2-6.7) 10^3/uL 13.18 H Absolute Lymphocytes (1.2-3.4) 10^3/uL 0.95 L Absolute Monocytes (0.1-0.8) 10^3/uL 1.31 H Absolute Eosinophils (0.0-0.7) 10^3/uL 0.00 Absolute Basophils (0.0-0.2) 10^3/uL 0.02 VBG Lactate (0.6-1.4) mmol/L 1.5 H
[2023-02-12 14:34] LABS: ALT 26 U/L (16-63); AST 23 U/L (15-37); Albumin 3.1 g/dL (3.4-5.0); Alkaline Phosphatase 139 U/L (46-116); Anion Gap 7.3 mmol/L (3-11); BUN 7 mg/dL (7-18); Bilirubin, Total 0.3 mg/dL (0.2-1.0); CO2 29.7 mmol/L (21.0-32.0); CREATININE 0.9 mg/dL (0.70-1.30); Calcium 9.1 mg/dL (8.5-10.1); Chloride 94 mmol/L (98-107); Estimated GFR 94.19 (mL/min/1.73m2); Glucose 103 mg/dL (74-106); Lipase 26 U/L (16-77); Magnesium 1.6 mg/dL (1.8-2.4); Potassium 4.3 mmol/L (3.5-5.1); Sodium 131 mmol/L (136-145); Total Protein 8.6 g/dL (6.4-8.2); Troponin I < 50 ng/L (<or=60)
--- NOTE | 2023-02-12 15:45 | W.EDPROG ---
Date of service: 02/12/23 Time of Service: 15:45 Medical Decision Making 1545: Care assumed from provider (LAMBERT Weller) Please see their initial HPI, PE, and documentation. Discussed patient details and case and pending workup and disposition. Patient is hemodynamically stable, and alert and oriented. At the time of signout awaiting chest x-ray and CT abdomen pelvis with contrast. In short patient is a 67-year-old male who presents to the ER via EMS with constipation, weakness and lower abdominal pain. Patient is placed on 1 L nasal cannula at the time of signout. He is awaiting diagnostic imaging. Labs show slight leukocytosis with white blood cell count of 15.54, hemoglobin 12.3 hematocrit 35.9, lactate 1.5, sodium 131 chloride 94, magnesium slightly low at 1.6, initial troponin less than 50, repeat troponin due at 1448. Lipase within normal limits. 1628: Spoke with Dr. 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 1645: Spoke with patient and family regarding results of chest x-ray and CT results they verbalized understanding. I do suspect pneumonia due to leukocytosis elevated lactate and hyponatremia however patient is a daily smoker does have chronic COPD. He reports that he he was on doxycycline in December which he finished seem to work good at that time. He has not been eating he uses a walker at home and per his family report he has had decreased activities of daily living over the last couple of years slowly declining. At rest patient's O2 sat is 94 to 95% on room air, 93% at rest. We will prescribe doxycycline discussed home care, strict return instructions and follow-up care. Patient does have a PCP appointment in the next [address] patient on care management follow-up list. According to the curb 65 score patient has a low risk of associated mortality and at this time he is appropriate for outpatient treatment. This text was generated using Lottayation system, please disregard any oddities of phrase or misspellings. Lab Data Lab results reviewed: Yes I reviewed the patient's lab results. Labs: 02/12/23 14:19 Blood Blood Culture - Pending 02/12/23 13:48 Blood Blood Culture - Pending Laboratory Tests Range/Units 02/12/23 13:48 WBC (4.4-10.8) 10^3/uL 15.54 H RBC (4.36-5.78) 10^6/uL 3.89 L Hgb (13.5-17.5) g/dL 12.3 L Hct (40.0-50.0) % 35.9 L MCV (80-95) fL 92 MCH (27.0-33.0) pg 31.6 MCHC (32.0-36.0) % 34.3 RDW (11.8-14.1) % 12.2 Plt Count (130-400) 10^3/uL 442 H MPV (8.0-11.0) fL 9.9 Immature Gran % 0.6 Neutrophils % 84.8 Lymphocytes % 6.1 Monocytes % 8.4 Eosinophils % 0.0 Basophils % 0.1 Nucleated RBC % (0.0-0.3) % 0.0 Absolute Neutrophils (1.2-6.7) 10^3/uL 13.18 H Absolute Lymphocytes (1.2-3.4) 10^3/uL 0.95 L Absolute Monocytes (0.1-0.8) 10^3/uL 1.31 H Absolute Eosinophils (0.0-0.7) 10^3/uL 0.00 Absolute Basophils (0.0-0.2) 10^3/uL 0.02 VBG Lactate (0.6-1.4) mmol/L 1.5 H Sodium (136-145) mmol/L 131 L Potassium (3.5-5.1) mmol/L 4.3 Chloride (98-107) mmol/L 94 L Carbon Dioxide (21.0-32.0) mmol/L 29.7 Anion Gap (3-11) mmol/L 7.3 BUN (7-18) mg/dL 7 Creatinine (0.70-1.30) mg/dL 0.9 Est GFR (CKD-EPI 2020) (mL/min/1.73m2) 94.19 Glucose (74-106) mg/dL 103 Calcium (8.5-10.1) mg/dL 9.1 Magnesium (1.8-2.4) mg/dL 1.6 L Total Bilirubin (0.2-1.0) mg/dL 0.3 AST (15-37) U/L 23 ALT (16-63) U/L 26 Alkaline Phosphatase (46-116) U/L 139 H Troponin I (<or=60) ng/L < 50 Total Protein (6.4-8.2) g/dL 8.6 H Albumin (3.4-5.0) g/dL 3.1 L Lipase (16-77) U/L 26 Sign Out Sign Out Data: Sign Out Comment: Pending imaging reports, abdominal pain - ?hernia, ?PNA, ?COPD exacerbation Last updated by Esteban Ordaz PA at 02/12/23 15:33 Discharge Plan Disposition Patient Disposition: Home Condition: Fair Discharge Details Clinical Impression: Adult failure to thrive syndrome, Pneumonia Primary Care Provider: Maco Altamirano ED Provider: Jacque Morrow Home Meds and New Rx's Prescriptions: New doxycycline hyclate 100 mg tablet 100 mg PO BID 10 Days Qty: 20 0RF Continued levetiracetam [Keppra] 750 mg tablet 750 mg PO BID Qty: 180 3RF sucralfate [Carafate] 1 gram tablet 1 g PO BID PRN (Reason: gerd) Qty: 180 4RF escitalopram oxalate [Lexapro] 10 mg tablet 10 mg PO DAILY Qty: 90 3RF aspirin 81 mg tablet,delayed release (DR/EC) 81 mg PO BID Qty: 90 3RF nicotine [Nicoderm CQ] 21 mg/24 hr patch 24 hour 1 patch transdermal Q24H Qty: 28 0RF vitamin B complex Capsule 1 cap PO .QOD phenobarbital 64.8 mg tablet 259.2 mg PO HS Qty: 360 3RF lorazepam 1 mg tablet 1 mg PO DAILY Qty: 40 2RF Rx Instructions: 1 daily and 1 as needed for seizure fluticasone propionate [Flovent Diskus] 100 mcg/actuation blister with device 2 inh inhalation BID Qty: 180 4RF Discharge Instructions Instructions: Hypomagnesemia (ED), Pneumonia (ED) Additional Instructions: At this time it appears you may have pneumonia. You do have some diverticulosis without the inflammation and infection associated with this. Please continue to take your inhalers as directed, and your medicines as prescribed. Take the antibiotic daily with yogurt or probiotic as prescribed. Follow up with primary care provider in 3-5 days. Return to ED sooner if any worsening or concerns. Increase oral fluids. Please take Tylenol or Ibuprofen with food every 4-6 hours as needed for pain and swelling. Referrals: Maco Altamirano NP [Primary Care Provider] - 2 weeks Gladys Valdez MD [ [facility] STAFF PHYSICIAN] - 2 weeks (For COPD management if needed, Call to make an appointment) Discharge Data Discharge Date/Time-TO BE ENTERED AT DEPARTURE: 02/12/23 17:17
[2023-02-12] MEDS: Omnipaque 350 MG/ML 500 ML BTL-Imaging package 100 ML IJ (15:53)
[2023-02-12] MEDS: Normal Saline - Diluent 50 ML VIAL IJ (15:54)
[2023-02-12] MEDS: Normal Saline Flush 10 ML SYR IVP (15:55)
--- NOTE | 2023-02-12 16:56 | NUR.NOTE ---
Referral faxed to PCP for pneumonia/sooner PCP appt. within 1 - 2 weeks. Nursing Note:
[2023-02-12] MEDS: Doxycycline Hyclate 100 MG CAP PO (17:24)
[2023-02-12] MEDS: Doxycycline Hyclate 100 MG, 2 CAPS/BTL PO (17:24)
[2023-02-12] MEDS: Magnesium Oxide 400 MG TAB 800 MG PO (17:24)
[2023-02-12 17:36] LABS: Troponin I < 50 ng/L (<or=60)
== END 2023-02-12 17:17 | disposition home or self-care (01) ==
PROVIDERS: Physician Assistant; Emergency Provider Registered Nurse Emergency; PCP Nurse Practitioner Family
DX: R62.7 Adult failure to thrive (principal); J18.9 Pneumonia, unspecified organism; R10.30 Lower abdominal pain, unspecified; R53.1 Weakness; I72.3 Aneurysm of iliac artery; K57.90 Diverticulosis of intestine, part unspecified, without perforation or abscess without bleeding; I70.0 Atherosclerosis of aorta; J44.9 Chronic obstructive pulmonary disease, unspecified; Z79.82 Long term (current) use of aspirin; Z79.899 Other long term (current) drug therapy; I10 Essential (primary) hypertension; K21.9 Gastro-esophageal reflux disease without esophagitis; G40.909 Epilepsy, unspecified, not intractable, without status epilepticus; Z72.0 Tobacco use; F32.A Depression, unspecified
CPT/HCPCS: 00123; 36415; 80053; 83690; 87040; 93005; 96361; 96365; 96375; 99285; 71046; 74177; 83605; 83735; 84484; 85025; 93010; J0131; J1885; J2405

== ENCOUNTER 2023-02-13 15:29 | Inpatient (IN) | payer MEDICARE, SELFPAY ==
[2023-02-13 15:24] VITALS: BP 152/61; PULSE 94; RESP 18; TEMP 37.1; O2SAT 94
--- NOTE | 2023-02-13 15:25 | W.ED.GENAD ---
Discharge Plan Disposition Patient Disposition: Admit to [facility] Condition: Fair Discharge Details Clinical Impression: COVID, COPD (chronic obstructive pulmonary disease), Pneumonia Primary Care Provider: Maco Alatmirano ED Provider: Wilver Hawk Hartly Medrosalva and New Rx's Prescriptions: No Action levetiracetam [Keppra] 750 mg tablet 750 mg PO BID Qty: 180 3RF sucralfate [Carafate] 1 gram tablet 1 g PO BID PRN (Reason: gerd) Qty: 180 4RF escitalopram oxalate [Lexapro] 10 mg tablet 10 mg PO DAILY Qty: 90 3RF aspirin 81 mg tablet,delayed release (DR/EC) 81 mg PO BID Qty: 90 3RF nicotine [Nicoderm CQ] 21 mg/24 hr patch 24 hour 1 patch transdermal Q24H Qty: 28 0RF vitamin B complex Capsule 1 cap PO .QOD phenobarbital 64.8 mg tablet 259.2 mg PO HS Qty: 360 3RF lorazepam 1 mg tablet 1 mg PO DAILY Qty: 40 2RF Rx Instructions: 1 daily and 1 as needed for seizure fluticasone propionate [Flovent Diskus] 100 mcg/actuation blister with device 2 inh inhalation BID Qty: 180 4RF prednisolone acetate 1 % drops,suspension Medical Decision Making Patient presenting to ED with increasing generalized weakness to the point where he is unable to ambulate at home even with his walker. Diagnosed with possible pneumonia yesterday despite negative chest x-ray and negative CT abdomen pelvis. He did have an elevated white count. We will start the patient on IV hydration, resend laboratory studies, obtain nasal swab and urine, repeat CXR. Patient repeat chest x-ray now shows a right upper lobe infiltrate. Initially patient ordered for cefepime, azithromycin, vancomycin given his severe COPD, previous antibiotic use. However, nasal swab has come back positive for COVID. Vancomycin discontinued and remdesivir ordered. Azithromycin changed from IV to p.o. Did continue cefepime. Patient's laboratory studies with a white count of 14.1 a little less than yesterday. Hemoglobin has dropped to 10.5 and will need to be followed. His venous gas is 7.46 with a PCO2 of 40. Sodium has dropped to 127 but kidney function remains normal. Magnesium a little low at 1.6. Troponin negative. Urinalysis negative. Case discussed with hospitalist. Patient will be admitted for further management of COVID, pneumonia, COPD. He has been stable here in the emergency department and does not currently require oxygen. I have held off on steroids given no wheezing and no oxygen requirement. Medical Records Medical records reviewed: Yes I reviewed the patient's medical records. Medical records narrative: yesterdays ED visit, labs, radiology reports Lab Data Lab results reviewed: Yes I reviewed the patient's lab results. HPI General Mode of arrival: EMS. Date/Time Provider Initiated Documentation: 02/13/23 15:40. Limitations to Documentation: no limitations. Information obtained by: patient and old records reviewed. HPI Narrative: Patient presents to ED by ambulance from home with increased weakness. Patient seen here yesterday and started on antibiotics for possible pneumonia. Since being home he has had increasing weakness to the point where this afternoon he is unable to ambulate to the bathroom because of generalized weakness. He has been drinking fluids but has no appetite and has not been eating. Denies any worsening shortness of breath. Has had sweats but no thermometer at home and cannot take her temperature. Denies any vomiting or diarrhea. He denies chest pain or abdominal pain at this time. Related Data Home Medications Medication Instructions Recorded Confirmed vitamin B complex 1 cap PO .QOD 11/13/19 02/13/23 aspirin 81 mg tablet,delayed 81 mg PO BID #90 tabs 06/08/22 02/13/23 release escitalopram oxalate 10 mg tablet 10 mg PO DAILY #90 tab-caps 06/08/22 02/13/23 (Lexapro) levetiracetam 750 mg tablet 750 mg PO BID #180 tab-caps 06/08/22 02/13/23 (Keppra) sucralfate 1 gram tablet (Carafate) 1 g PO BID PRN gerd #180 tab-caps 06/08/22 02/13/23 nicotine 21 mg/24 hr daily 1 patch transdermal Q24H #28 ea 01/02/23 02/13/23 transdermal patch (Nicoderm CQ) lorazepam 1 mg tablet 1 mg PO DAILY #40 tabs 01/18/23 02/13/23 phenobarbital 64.8 mg tablet 259.2 mg (4 x 64.8 mg) PO HS #360 01/18/23 02/13/23 tab-caps fluticasone propionate 100 2 inh inhalation BID #180 ea 01/19/23 02/13/23 mcg/actuation blister powder for inhalation (Flovent Diskus) prednisolone acetate 1 % eye drp 02/13/23 drops,suspension Previous Rx's Medication Instructions Recorded aspirin 81 mg tablet,delayed 81 mg PO BID #90 tabs 06/08/22 release escitalopram oxalate 10 mg tablet 10 mg PO DAILY #90 tab-caps 06/08/22 (Lexapro) levetiracetam 750 mg tablet 750 mg PO BID #180 tab-caps 06/08/22 (Keppra) sucralfate 1 gram tablet (Carafate) 1 g PO BID PRN gerd #180 tab-caps 06/08/22 nicotine 21 mg/24 hr daily 1 patch transdermal Q24H #28 ea 01/02/23 transdermal patch (Nicoderm CQ) lorazepam 1 mg tablet 1 mg PO DAILY #40 tabs 01/18/23 phenobarbital 64.8 mg tablet 259.2 mg (4 x 64.8 mg) PO HS #360 01/18/23 tab-caps fluticasone propionate 100 2 inh inhalation BID #180 ea 01/19/23 mcg/actuation blister powder for inhalation (Flovent Diskus) Allergies Allergy/AdvReac Type Severity Reaction Status Date / Time zonisamide Allergy Unknown Verified 02/13/23 15:32 sertraline AdvReac Intermediate Verified 02/13/23 15:32 cefuroxime AdvReac Unknown Verified 02/13/23 15:32 guaifenesin AdvReac Unknown Verified 02/13/23 15:32 General LAMONT: 3 Review of Systems Narrative: Per HPI PFSH All Active Problems (Updated 02/13/23 @ 18:54 by Wilver Hawk MD) Pneumonia (Acute) COPD (chronic obstructive pulmonary disease) (Chronic) COVID (Acute) Decreased vision of right eye (Acute) Pneumonia (Acute) Adult failure to thrive syndrome (Acute) Chronic anterior uveitis of right eye (Acute) Frequent falls (Acute) Lung nodules (Acute) Hyponatremia (Acute) 12/2020-133 History of knee surgery (Acute) Smoker (Acute) 100 plus pack years smoking Low back pain (Acute) History of alcoholism (Acute) Generalized osteoarthrosis (Acute) right knee Generalized convulsive epilepsy (Acute) Gastroesophageal reflux disease (Acute) Benign esophageal stricture (Acute) dilated 07/13 Medical History 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 Father No problems noted. Social History Smoking/Tobacco Use Status: Current every day Tobacco Type: cigarettes Quit status: considering quitting Second Hand Exposure: Yes Smoking risk assessment performed?: Yes Alcohol Intake: former Drug use: Never Substance use type: does not use Counseling given: Yes Caregiver/Support person: No Household members: spouse Housing: house Communication Needs: None Do you need help understanding health information?: Never Pets and animals: No Sexually active: No Do you think of yourself as: straight/heterosexual Current gender identity: decline to answer What is your relationship status?: How often do you talk on the phone with friends or family?: three or more times per week How often do you get together with friends or relatives?: decline to answer How often do you attend scientologist or restorationist services?: decline to answer Do you belong to any clubs or organized social groups?: no Panel score (0-1 are the most socially isolated patients): 2 What type of physical activity do you participate in: decline to answer Duration: decline to answer Frequency: decline to answer Danette/Denominational: No preference Special danette needs: No Seatbelt use: sometimes Helmet use: Yes Helmet use: always Drive intox or ride w/intox 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 HEENT: NC/AT. Normal facial exam. Eyes: Normal conjunctiva and sclera. Neck: Supple. Trachea midline. Lungs: Normal respiratory effort. Lungs with scattered wheeze, diminished breath sounds. Cor: RRR without murmur/gallop. Good radial pulses. GI: Soft. NT/ND. No guarding or rebound. Neuro: A+O x 3. Normal speech, mentation, gait. Cranial nerves II - XII grossly intact. No gross motor or sensory deficit. Ext: No C/C/E. Skin: Warm and dry without rash.
--- NOTE | 2023-02-13 15:30 | DI.RAD_ITS ---
Exam(s) XR PORTABLE CHEST AP EXAM: XR PORTABLE CHEST AP CLINICAL HISTORY: increased weakness TECHNIQUE: 2D digital imaging was performed. COMPARISON: CT CT CHEST PE CTA from 12/27/2022 CR XR CHEST 2V PA LATERAL from 02/12/2023 FINDINGS: LUNGS: Increased densities now seen in the right upper lobe laterally. Left lung appears clear. No pleural abnormality seen. HEART: Normal size. AORTA: Normal diameter. BONES: Unremarkable for age. Soft tissues: Unremarkable. IMPRESSION: Right upper lobe infiltrate. DATA REPOSITORY: RADIATION DOSE DELIVERED:
[2023-02-13 16:08] LABS: BE (Venous) 5 mmol/L (-2-3); HCO3 (Venous) 28 mmol/L (23-28); O2 Sat (Venous) 95 %; TCO2 (Venous) 26 mmol/L (24-29); pCO2 (Venous) 40 mmHg (41-51); pH (Venous) 7.46 (7.31-7.41); pO2 (Venous) 65 mmHg
[2023-02-13 16:19] LABS: Absolute Basophil Count 0.01 10^3/uL (0.0-0.2); Absolute Lymphocyte Count 1.32 10^3/uL (1.2-3.4); Absolute Monocyte Count 1.42 10^3/uL (0.1-0.8); Absolute Neutrophil Count 11.23 10^3/uL (1.2-6.7); Basophils % 0.1; HCT 29.8 % (40.0-50.0); HGB 10.5 g/dL (13.5-17.5); Immature Grans % 0.7; Lymphocytes % 9.4; MCH 31.9 pg (27.0-33.0); MCHC 35.2 % (32.0-36.0); MCV 91 fL (80-95); Monocytes % 10.1; Neutrophils % 79.7; Platelet Count 363 10^3/uL (130-400); RBC 3.29 10^6/uL (4.36-5.78); RDW 12.2 % (11.8-14.1); RDW-SD 40.3 fL; WBC 14.09 10^3/uL (4.4-10.8)
[2023-02-13] MEDS: CEFEPIME 1 GM in Normal Saline 50 ML IVPB (16:25)
[2023-02-13 16:27] LABS: ALT 24 U/L (16-63); AST 22 U/L (15-37); Albumin 2.7 g/dL (3.4-5.0); Alkaline Phosphatase 114 U/L (46-116); Anion Gap 6.6 mmol/L (3-11); BUN 7 mg/dL (7-18); Bilirubin, Total 0.3 mg/dL (0.2-1.0); CO2 28.4 mmol/L (21.0-32.0); CREATININE 0.7 mg/dL (0.70-1.30); Calcium 8.6 mg/dL (8.5-10.1); Chloride 92 mmol/L (98-107); Estimated GFR 101.62 (mL/min/1.73m2); Glucose 110 mg/dL (74-106); Magnesium 1.6 mg/dL (1.8-2.4); Potassium 4.1 mmol/L (3.5-5.1); Sodium 127 mmol/L (136-145); Total Protein 7.5 g/dL (6.4-8.2)
[2023-02-13 16:30] LABS: PHENOBARBITAL 37.3 ug/mL (15.0-40.0); Troponin I < 50 ng/L (<or=60)
[2023-02-13] MEDS: Sucralfate 1 GM TAB PO (16:38)
[2023-02-13] MEDS: Aspirin 81 MG CHEW (16:38)
[2023-02-13 16:42] LABS: Influenza A PCR Negative (Negative); Influenza B PCR Negative (Negative); RSV PCR Negative (Negative)
[2023-02-13 16:50] LABS: COVID-19 PCR Positive (Negative); Source Nasopharynx
[2023-02-13] MEDS: Azithromycin 250 MG TAB 500 MG PO (16:59)
[2023-02-13] MEDS: REMDESIVIR 200 MG in Normal Saline 250 ML 250 MG IVPB (18:00)
[2023-02-13 18:29] LABS: Bilirubin Negative (Negative); Blood Trace-intact (Negative); Clarity Clear (Clear); Glucose Negative (Negative); Ketones Negative (Negative); Leukocyte Esterase Negative (Negative); Nitrite Negative (Negative); Specific Gravity 1.015 (1.005-1.025); pH 6.5 (5-8)
--- NOTE | 2023-02-13 18:39 | W.PM.HP.N ---
Date of service: 02/13/23 Time of Service: 18:39 Assessment and Plan Assessment and plan (1) Pneumonia: Status: Acute Assessment and plan: Pneumonia. Will treat with Rocephin and Zithro, send Legionella antigen. No oxygen requirement at present. COVID, w/o oxygen requirement. Will continue Remdesivir Urinary retention: leave Young for now. Begin Flomax. Consult urology Chronic hyponatremia: ?SSRI induced. Trial saline overnight, trend, ?fluid restriction Seizure disorder: CPM Tobacco: prn nicotine patch History of Present Illness History of Present Illness Chief Complaint: weakness Narrative: 67 male withh/o COPD, seizure disorder -- seen yesterday with a great variety of chronic complaints, ended up with diagnosis of pneumonia (despite negative CXR) and sent home on Doxycycline. Returns today with with ongoing multiplicity of com-laints, but more particularly that he is now feeling so weak that he cannot get around. Work up in ER of note for white count 14, Na 127 (baseline approx 130), COVID +, and CXR showing RUL infiltrate. Patient started on Cefepime, Zithro and Remdesivir. I was asked to evaluate for admission. Notably he also had com-laint of chronic difficulty urinating. Bladder scan showed 430 cc and Young was placed, with output 370 cc. Urine negative WBC/RBC Review of Systems Narrative: per HPI PFSH All Active Problems Decreased vision of right eye (Acute) Pneumonia (Acute) Adult failure to thrive syndrome (Acute) Chronic anterior uveitis of right eye (Acute) Frequent falls (Acute) Lung nodules (Acute) Hyponatremia (Acute) 12/2020-133 History of knee surgery (Acute) Smoker (Acute) 100 plus pack years smoking Low back pain (Acute) History of alcoholism (Acute) Generalized osteoarthrosis (Acute) right knee Generalized convulsive epilepsy (Acute) Gastroesophageal reflux disease (Acute) Benign esophageal stricture (Acute) dilated 07/13 Medical History 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 Father No problems noted. Social History Smoking/Tobacco Use Status: Current every day Tobacco Type: cigarettes Quit status: considering quitting Second Hand Exposure: Yes Smoking risk assessment performed?: Yes Alcohol Intake: former Drug use: Never Substance use type: does not use Counseling given: Yes Caregiver/Support person: No Household members: spouse Housing: house Communication Needs: None Do you need help understanding health information?: Never Pets and animals: No Sexually active: No Do you think of yourself as: straight/heterosexual Current gender identity: decline to answer What is your relationship status?: How often do you talk on the phone with friends or family?: three or more times per week How often do you get together with friends or relatives?: decline to answer How often do you attend judaism or lutheran services?: decline to answer Do you belong to any clubs or organized social groups?: no Panel score (0-1 are the most socially isolated patients): 2 What type of physical activity do you participate in: decline to answer Duration: decline to answer Frequency: decline to answer Danette/Gnosticism: No preference Special danette needs: No Seatbelt use: sometimes Helmet use: Yes Helmet use: always Drive intox or ride w/intox local delivery driver: No Do you feel safe at home: Yes Do you feel safe in your relationship?: Yes Meds Allergies and Home Medications Allergies Allergy/AdvReac Type Severity Reaction Status Date / Time zonisamide Allergy Unknown Verified 02/13/23 15:32 sertraline AdvReac Intermediate Verified 02/13/23 15:32 cefuroxime AdvReac Unknown Verified 02/13/23 15:32 guaifenesin AdvReac Unknown Verified 02/13/23 15:32 Home Medications Medication Instructions Recorded Confirmed Type vitamin B complex 1 cap PO .QOD 11/13/19 02/13/23 History aspirin 81 mg tablet,delayed 81 mg PO BID #90 tabs 06/08/22 02/13/23 Rx release escitalopram oxalate 10 mg tablet 10 mg PO DAILY #90 tab-caps 06/08/22 02/13/23 Rx (Lexapro) levetiracetam 750 mg tablet 750 mg PO BID #180 tab-caps 06/08/22 02/13/23 Rx (Keppra) sucralfate 1 gram tablet (Carafate) 1 g PO BID PRN gerd #180 tab-caps 06/08/22 02/13/23 Rx nicotine 21 mg/24 hr daily 1 patch transdermal Q24H #28 ea 01/02/23 02/13/23 Rx transdermal patch (Nicoderm CQ) lorazepam 1 mg tablet 1 mg PO DAILY #40 tabs 01/18/23 02/13/23 Rx phenobarbital 64.8 mg tablet 259.2 mg (4 x 64.8 mg) PO HS #360 01/18/23 02/13/23 Rx tab-caps fluticasone propionate 100 2 inh inhalation BID #180 ea 01/19/23 02/13/23 Rx mcg/actuation blister powder for inhalation (Flovent Diskus) prednisolone acetate 1 % eye drp 02/13/23 History drops,suspension Exam Narrative Exam Narrative: 152/61, 94, 37.1, 18, 94% RA. Looks chronically ill. HEENT atraumatic; neck supple; lungs diminished but clear; heart RRR; abdomen soft and NT; extremities w/o edema, pulses 2+/=; neuro flat affect, Ox3, moves all 4s Results Labs 02/13/23 16:00 02/13/23 16:00 Labs: Laboratory Results - last 24 hr 02/13/23 02/13/23 16:00 18:25 WBC 14.09 H RBC 3.29 L Hgb 10.5 L Hct 29.8 L MCV 91 MCH 31.9 MCHC 35.2 RDW 12.2 Plt Count 363 MPV 10.0 Immature Gran % 0.7 Neutrophils % 79.7 Lymphocytes % 9.4 Monocytes % 10.1 Eosinophils % 0.0 Basophils % 0.1 Nucleated RBC % 0.0 Absolute Neutrophils 11.23 H Absolute Lymphocytes 1.32 Absolute Monocytes 1.42 H Absolute Eosinophils 0.00 Absolute Basophils 0.01 VBG pH 7.46 H VBG pCO2 40 L VBG pO2 65 VBG HCO3 28 VBG Total CO2 26 VBG O2 Saturation 95 VBG Base Excess 5 H Sodium 127 L Potassium 4.1 Chloride 92 L Carbon Dioxide 28.4 Anion Gap 6.6 BUN 7 Creatinine 0.7 Est GFR (CKD-EPI 2020) 101.62 Glucose 110 H Calcium 8.6 Magnesium 1.6 L Total Bilirubin 0.3 AST 22 ALT 24 Alkaline Phosphatase 114 Troponin I < 50 Total Protein 7.5 Albumin 2.7 L Urine Color Yellow Urine Clarity Clear Urine pH 6.5 Ur Specific [place] 1.015 Urine Protein 30 H Urine Ketones Negative Urine Blood Trace-intact H Urine Nitrite Negative Urine Bilirubin Negative Urine Urobilinogen 1.0 H Ur Leukocyte Esterase Negative Urine Glucose Negative Phenobarbital 37.3 COVID-19 Source Nasopharynx SARS-CoV-2 (PCR) Positive A Influenza Type A (PCR) Negative Influenza Type B (PCR) Negative RSV (PCR) Negative Last Vital Signs Temp 37.1 C 02/13/23 15:24 Pulse 94 H 02/13/23 15:24 Resp 18 02/13/23 15:24 BP 152/61 H 02/13/23 15:24 Pulse Ox 94 02/13/23 15:24 Time Spent Time spent with Patient: 40-54 minutes Time was spent: preparing to see the patient(eg.review tests), obtaining and/or reviewing separately otained hiistory, ordering medications,tests, procedures, referring, communicating with other health laboratory animal caretaker and indepentently interpreting results
[2023-02-13 18:44] LABS: Bacteria Negative HPF (Negative); C & S Indicated? No; Casts Negative LPF (Negative); Crystals Negative HPF (Negative); Epithelial Cells Rare HPF (Negative); Mucus Negative (Negative); RBC 0-2 HPF (0-2); WBC 0-2 HPF (0-5)
[2023-02-13 19:04] VITALS: BP 140/62; PULSE 81; RESP 22; O2SAT 94
[2023-02-13 20:18] VITALS: BP 150/66; PULSE 83; RESP 18; O2SAT 97
[2023-02-13 20:22] VITALS: BP 150/66; PULSE 83; RESP 22; O2SAT 97
[2023-02-13 21:42] VITALS: BP 133/68; PULSE 89; RESP 20; TEMP 37.5; O2SAT 95
[2023-02-13 22:01] VITALS: PULSE 86
[2023-02-13] MEDS: Normal Saline Flush 10 ML SYR IVP (22:03)
[2023-02-13] MEDS: Normal Saline 1,000 ML 75 ML IV (22:03)
[2023-02-13] MEDS: PHENobarbital 64.8 MG TAB 259.2 MG PO (22:04)
[2023-02-13] MEDS: levETIRAcetam 250 MG TAB 750 MG PO (22:04)
[2023-02-14] VITALS (8 sets, daily range): BP systolic 109–157; BP diastolic 62–70; PULSE 77–100; RESP 18–20; TEMP 36.7–37.5; O2SAT 93–97
--- NOTE | 2023-02-14 | DI.CT_ITS ---
Exam(s) CT CHEST PE CTA EXAM: CT CHEST PE CTA CLINICAL HISTORY: COVID-19, elevated d-dimer, ?PE. TECHNIQUE: Imaging Protocol: Axial CT angiography was performed with multi-slice acquisition and mu lti-planar reconstructions as well as axial, coronal and sagittal MIP reconstructions. CONTRAST MATERIAL: Intravenous: Omnipaque 350 Contrast volume:100 ml COMPARISON: CT CT CHEST PE CTA from 12/27/[address] ABDOMEN PELVIS W from 02/12/2023 CR XR PORTABLE CHEST AP from 02/13/2023 FINDINGS: Exam mildly limited by respiratory motion. Pulmonary Arteries: No evidence of filling defect to suggest pulmonary emboli. Tracheobronchial tree: Patent where visualized. Mediastinum and Kathrin: No dominant adenopathy or fluid collection. Pulmonary parenchyma: Infiltrate noted in the posterolateral right upper lobe. Scattered patchy infi ltrates seen in the left lower lobe. Stable 4 millimeter nodule right lower lobe. Pleura: No effusion or pneumothorax. Heart: The heart is not dilated. No coronary artery calcifications are seen. Aorta: Thoracic aorta non-dilated. No aneurysm. No dissection. Upper abdomen: Unremarkable. Bones: Old right rib fractures. Stable old L1 compression fracture. Tubes, Catheters, and Lines: None Soft tissues: Unremarkable. IMPRESSION: No evidence of pulmonary embolism. Right upper lobe pneumonia. Mild patchy infiltrates in left lower lobe. RADIATION DOSE DELIVERED: Total DLP DATA REPOSITORY: All CT scans at this facility are submitted to the National Radiology Data Registry (NRDR) Dose Index Registry (DIR) with the [employer] (A[employer]). RADIATION OPTIMIZATION: All CT scans at this facility use at least one of these dose optimization te chniques: automated exposure control; mA and/or kV adjustment per patient size (includes targeted exa ms where dose is matched to clinical indication); or iterative reconstruction.
[2023-02-14] MEDS: CEFEPIME 1 GM in Normal Saline 50 ML IVPB ×3 (01:34→18:11)
[2023-02-14 07:14] LABS: Sodium 131 mmol/L (136-145)
[2023-02-14 08:12] LABS: ALT 20 U/L (16-63); AST 25 U/L (15-37); Albumin 2.5 g/dL (3.4-5.0); Alkaline Phosphatase 121 U/L (46-116); Anion Gap 7.8 mmol/L (3-11); BUN 6 mg/dL (7-18); Bilirubin, Direct 0.1 mg/dL (0.0-0.2); Bilirubin, Total 0.2 mg/dL (0.2-1.0); C-Reactive Protein 18.57 mg/dL (0.0-0.3); CO2 27.2 mmol/L (21.0-32.0); CREATININE 0.7 mg/dL (0.70-1.30); Calcium 8.4 mg/dL (8.5-10.1); Chloride 96 mmol/L (98-107); Estimated GFR 101.62 (mL/min/1.73m2); Glucose 95 mg/dL (74-106); Magnesium 1.6 mg/dL (1.8-2.4); Potassium 3.7 mmol/L (3.5-5.1); Sodium 131 mmol/L (136-145)
[2023-02-14 08:35] LABS: Ferritin 106 ng/mL (26-388)
[2023-02-14] MEDS: Budesonide/Formoterol 80/4.5 6.9 GM 60 PUFF INH IH ×2 (08:50→19:59)
[2023-02-14] MEDS: levETIRAcetam 250 MG TAB 750 MG PO ×2 (08:54→20:45)
[2023-02-14] MEDS: Zinc Sulfate 220 MG TAB PO (08:55)
[2023-02-14] MEDS: LORazepam 1 MG TAB PO (08:55)
[2023-02-14] MEDS: Tamsulosin 0.4 MG CAPCR PO (08:55)
[2023-02-14] MEDS: Aspirin E.C. 81 MG TABEC PO ×2 (08:55→20:45)
[2023-02-14 08:56] LABS: Abs Immature Grans 0.06 10^3/uL (0.0-0.06); Absolute Basophil Count 0.02 10^3/uL (0.0-0.2); Absolute Monocyte Count 1.17 10^3/uL (0.1-0.8); Absolute Neutrophil Count 6.96 10^3/uL (1.2-6.7); Basophils % 0.2; HCT 29.9 % (40.0-50.0); HGB 10.6 g/dL (13.5-17.5); Immature Grans % 0.6; Lymphocytes % 13.7; MCH 32.5 pg (27.0-33.0); MCHC 35.5 % (32.0-36.0); MCV 92 fL (80-95); MPV 10.1 fL (8.0-11.0); Monocytes % 12.3; Neutrophils % 73.2; Platelet Count 337 10^3/uL (130-400); RBC 3.26 10^6/uL (4.36-5.78); RDW 12.3 % (11.8-14.1); RDW-SD 41.1 fL; WBC 9.51 10^3/uL (4.4-10.8)
[2023-02-14] MEDS: Acetaminophen 325 MG TAB 650 MG PO (08:56)
[2023-02-14] MEDS: Ascorbic Acid 500 MG TAB PO ×2 (08:56→20:44)
[2023-02-14] MEDS: Escitalopram 10 MG TAB PO (08:56)
[2023-02-14] MEDS: Albuterol HFA 8 GM 60 PUFF INH IH (09:00)
[2023-02-14 09:02] LABS: INR 1.5 (0.9-1.1); Prothrombin Time 14.2 sec (9.1-11.1)
--- NOTE | 2023-02-14 09:21 | PT.INIE ---
PT Notes Visit Reasons: Pneumonia, COVID Physical Therapy Inpatient Initial Evaluation Date: 02/14/2023 Referring Doctor: Tiffanie Benoit MD PT Orders: PT CONSULT: Limited ability Precautions: Fall. Airborne and droplet precautions for COVID-19 infection. Activity as tolerated. Patient Profile/Admitting Diagnosis: Piero is a 67-year-old male with past medical history significant for R-sided hemiparesis who was admitted to the ED on 02/13/2023 due to generalized weakness and worsening ability to walk. Patient is admitted for management of pneumonia, dysuria, COVID-19 infection. 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 Ambulatory with use of front-wheeled walker. 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 Disabled since CVA in 1995. Equipment Owned/DME: FWW Subjective: Has not been able to stand up and walk since a day or so ago. Fell due to worening balance awareness and generalized weakness. [place] hopeful about being able to transfer and cover a short distance with PT during this evalaution. Objective: General Observation: Supine in bed. Telemetry monitoring in place. Young catheter in place. IV through L UE. On room air. Mental Status: Alert and oriented as to person, place, time, and purpose. Able to pay attention, focus, and respond appropriately. Pain: Denies Vital Signs: Closely monitored by nursing staff ROM: Right Upper Extremity: Shoulder Flexion lacks the last 50% of AROM patient. Shoulder abduction lacks the last 50% of AROM. Elbow flexion WFL. Wrist flexion WFL. Functional opening and closing of hand WFL. Left Upper Extremity: Shoulder Flexion lacks the last 25% of AROM patient. Shoulder abduction lacks the last 25% of AROM. Elbow flexion WFL. Wrist flexion WFL. Functional opening and closing of hand WFL. Right Lower Extremity: Hip flexion lacks the last 50% orf AROM. Hip abduction lacks the last 50% orf AROM. Knee flexion 30-90 degrees. Knee extension -30 degrees. Ankle dorsiflexion to neutral only WFL. Ankle plantarflexion WFL. Left Lower Extremity: Hip flexion lacks the last 25% orf AROM. Hip abduction lacks the last 25% orf AROM. Knee flexion 10-90 degrees. Knee extension -10 degrees. Ankle dorsiflexion to neutral only WFL. Ankle plantarflexion WFL. Strength: Right Upper Extremity: Shoulder flexors 3-/5. Shoulder abductors 3-/5. Elbow flexors 4-/5. Elbow extensors 4-/5. Satellite Dish Repairer strong. Left Upper Extremity: Shoulder flexors 3-/5. Shoulder abductors 3-/5. Elbow flexors 4-/5. Elbow extensors 4-/5. Satellite Dish Repairer strong. Right Lower Extremity: Hip flexors 3-/5. Hip abductors 3-/5. Knee flexors 3-/5. Knee extensors 3-/5. Ankle dorsiflexors 3-/5. Ankle plantarflexors 4-/5. Left Lower Extremity: Hip flexors 3-/5. Hip abductors 3-/5. Knee flexors 3-/5. Knee extensors 3-/5. Ankle dorsiflexors 3-/5. Ankle plantarflexors 4-/5. Bed Mobility/Transfers: Minimal cues provided for use of bilateral upper extremities for additional support as needed and for movement sequence Rolling minimal assist with [] cues for safe/correct technique Supine to sit minimal assist with HOB at 45 degrees Sit to stand minimal assist using FWW Stand to sit minimal assist using FWW Bed to reclining chair minimal assist using FWW Gait: Facilitated safe and correct performance of short in-room level surface ambulation using front-wheeled walker with minimal assist requiring moderate verbal cues for limb advancement, weightbearing onto walker for support, posture, and overall safety covering a distance of 10 feet. No loss of balance. No buckling in either knee. Balance: Static Sitting: Goo Dynamic Sitting: Fair Static Standing: Fair Dynamic Standing: Fair Special Tests: Mobility Limitations Standardized Measure [facility] AM-PAC 6 clicks Basic Mobility Inpatient Short Form: Raw Score: 18 CMS Score: 47% deficit Informed Consent/Education: Patient was instructed in purpose of PT consult and plan of care. Agreeable to proceed with established PT POC to achieve personal goals. Assessment: COVID-19 infection mainly contributing to generalized weakness and functional mobility decline. At moderate to maximal risk for falling with use of front wheeled walker and assistance of 1 caregiver. Patient will benefit from progressive BUE/LE strengthening, functional mobility training and balance retraining. Patient presents with clinical signs and symptoms consistent with current/admitting diagnoses that have resulted to mobility limitations, gait instability, generalized weakness, and overall ADL decline as demonstrated by the following impairment level findings: 1. Decreased strength to B UE/LE major muscle groups R<<L 2. Impaired sitting/standing balance 3. Impaired activity tolerance 4. Limitation of joint range of motion in B hips and knees (chronic) Impairments are contributing to the following functional limitations: 1. Decline in bed mobility skills 2. Decline in transfer skills 3. Difficulty with ambulation without assistive device and physical assistance 4. Increased completion time for mobility ADL performance 5. Increased risk for falls 6. Difficulty with managing steps alone safely Patient is assessed as a facilitated safe and correct performance of short in room complexity based on the following: History: 67-year-old male with past medical history as indicated above Examination: Demonstrable impairment in strength, balance, and mobility level with underlying impairments and functional limitations as exhibited above as well as deficit score of 47% utilizing the [facility] Mobility Inpatient Short Form Presentation: Evolving Decision Makin moderate complexity Goals: Goals X1 week 1. Supine-Sit independent 2. Sit-Supine independent 3. Sit-Stand independent 4. Stand-Sit independent with FWW 5. Bed-Chair independent with FWW 6. Chair-Bed independent with FWW 7. Independent gait on level surface with use of FWW for at least 150 feet without report of pain nor dyspnea 8. Independent stair negotiation while holding onto B rails for at least 3 steps without report of pain nor dyspnea 9. Independent with home exercise program 10. Good static and dynamic standing balance/tolerance Plan of Care/Treatment Plan: 1-2x/day, 7 days/week x 1 week. Plan of care has been reviewed with the RECORDS MANAGEMENT ANALYST providing the service under Physical Therapy direction. Initiate Physical Therapy intervention for pain management as needed, strengthening, bed mobility, transfers, gait, stairs, balance training, and use of assistive device. DISCHARGE RECOMMENDATIONS: [] Home with no services [] [] Home with services [specify] [] Home with outpatient PT [] [] SNF for continued rehabilitation [] [] Detention Care [] [] SNF versus LTC based on ability to participate and progress [] [X] PT vs SNF bsaed on progress towards goals and availability if caregiver at home to provide assiatnce with essential transfers TREATMENT CODE/TIME: 43250 x 20 minutes for 1 unit , 53069 x 18 minutes for 1 unit beginning at 9:21 AM. Thank you for the opportunity to participate in the care of this patient. Cindy Jaimes PT, DPT, CLT [facility] [place], [place]
[2023-02-14 09:23] LABS: D-Dimer 1692 ng/mlFEU (<500)
[2023-02-14] MEDS: Ipratropium/Albuterol 4 GM 120 PUFF INH IH ×4 (10:11→19:59)
[2023-02-14] MEDS: MAGNESIUM SULFATE 2 GM/50 ML BAG IVPB (12:02)
[2023-02-14] MEDS: Normal Saline 1,000 ML 75 ML IV (12:03)
[2023-02-14] MEDS: Omnipaque 350 MG/ML 500 ML BTL-Imaging package IJ (14:27)
--- NOTE | 2023-02-14 15:09 | PDOC.CMIN ---
Date of service: 02/14/23 Time of Service: 15:10 Care Management Initial Assmt Initial Assessment REASON FOR HOSPITALIZATION:: Admitted for Pnemonia; negative CXR. Covid. Severe weakness. PREVIOUS FUNCTIONAL STATUS/SOCIAL/FAMILY SUPPORTS:: Resides with , Denice in [place]. Per CC note at [facility], patient refused outpatient follow up after ED visit, was admitted the following day. CURRENT FUNCTIONAL STATUS:: On COVID precautions. Reports since start of inhaler his breathing feels much better. Pleasant in interaction over the phone. Shares his is out shopping with her sister at this time. ADVANCE DIRECTIVES:: None on file. Has patient been provided with info about the portal/API?: No Did the patient sign up for the portal?: No CODE STATUS:: Full Code INSURANCE COVERAGE / FINANCIAL ISSUES:: MCR A&B CURRENT HOME/COMMUNITY SERVICES/EQUIPMENT:: None, currently PRIMARY CARE PHYSICIAN:: Maco Majano POTENTIAL DISCHARGE NEEDS:: PT and Urology Consults PATIENT/FAMILY EDUCATION NEEDS:: Review discharge instructions, discuss Ask Me Three. ANTICIPATED BARRIERS TO DISCHARGE:: COVID status-delay SNF transfer, lack of available SNF beds. TRANSPORTATION:: TBD by disposition. PLAN:: Young, no O2, on Rocephin and Zithro, legionella antigen pending. PT evaluation recommends VNA PT with home support of [id number]. Miguel has declined SNF is open to VNA referrals. He requests support with cancelling [facility] and [facility] Surgery appointments on and respectively, CM communicated need with AA to pass on to PCP CC. CM continues to follow. [facility] All Active Problems (Updated 02/13/23 @ 18:54 by Wilver Hawk MD) Pneumonia (Acute) COPD (chronic obstructive pulmonary disease) (Chronic) COVID (Acute) Decreased vision of right eye (Acute) Pneumonia (Acute) Adult failure to thrive syndrome (Acute) Chronic anterior uveitis of right eye (Acute) Frequent falls (Acute) Lung nodules (Acute) Hyponatremia (Acute) 12/2020-133 History of knee surgery (Acute) Smoker (Acute) 100 plus pack years smoking Low back pain (Acute) History of alcoholism (Acute) Generalized osteoarthrosis (Acute) right knee Generalized convulsive epilepsy (Acute) Gastroesophageal reflux disease (Acute) Benign esophageal stricture (Acute) dilated 07/13 Medical History 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 Father No problems noted. Social History Smoking/Tobacco Use Status: Current every day Tobacco Type: cigarettes Quit status: considering quitting Second Hand Exposure: Yes Smoking risk assessment performed?: Yes Alcohol Intake: former Drug use: Never Substance use type: does not use Counseling given: Yes Caregiver/Support person: No Household members: spouse Housing: house Communication Needs: None Do you need help understanding health information?: Never Pets and animals: No Sexually active: No Do you think of yourself as: straight/heterosexual Current gender identity: decline to answer What is your relationship status?: How often do you talk on the phone with friends or family?: three or more times per week How often do you get together with friends or relatives?: decline to answer How often do you attend orthodox or evangelical services?: decline to answer Do you belong to any clubs or organized social groups?: no Panel score (0-1 are the most socially isolated patients): 2 What type of physical activity do you participate in: decline to answer Duration: decline to answer Frequency: decline to answer Danette/Bahai: No preference Special danette needs: No Seatbelt use: sometimes Helmet use: Yes Helmet use: always Drive intox or ride w/intox sales driver: No Do you feel safe at home: Yes Do you feel safe in your relationship?: Yes
--- NOTE | 2023-02-14 16:36 | UCONE_ITS ---
Date of service: 02/14/23 Time of Service: 16:36 Assessment and Plan Assessment and plan (1) Lower urinary tract symptoms (LUTS): Status: Acute Assessment and plan: It is very difficult to tell what this gentleman's voiding baseline actually is. It may be that the volume of urine found in the bladder in the emergency room is this gentleman's baseline. He does have a history of a stroke which can contribute to a neurogenic bladder. He is also at an age where bladder outlet obstruction is not unusual. The only mention in his records I can find regarding his urinary tract has to do with a complaint of nocturia a few years back. Even then, the provider seeing him in the primary care office that day mentioned that he did not have access to this gentlemen's old records. In any event, we are reassured by the absence of hydronephrosis on his CT scan before a catheter was ever placed. I think a trial of tamsulosin is reasonable. For gentleman who actually do have acute urinary retention, we generally recommend leaving the catheter for 3 to 5 days to let the Flomax to take effect. We would then give him a voiding trial. At his voiding trial, I do not believe I would reinsert a Young based on the volume found on bladder scan. I would simply reinsert the Young only if the patient experiences discomfort and feels like he is unable to empty. The remainder of his evaluation is best done as an outpatient. If he continues to have voiding symptoms, we would likely recommend a urodynamic study to try to differentiate an obstructive process from a neurogenic process. History of Present Illness History of Present Illness Chief Complaint: Lower urinary tract symptoms Narrative: This is a 67-year-old gentleman who is currently hospitalized with pneumonia and COVID. He apparently described some urinary difficulty to the emergency department providers. He was found to have a high bladder volume and a Young catheter was placed. He was started on tamsulosin. Review of Systems Constitutional Constitutional: Reports weakness ENT Ears, Nose, Mouth, and Throat: Reports disequilibrium Cardiovascular Cardiovascular: Denies chest pain at rest, Reports dyspnea and Reports dyspnea on exertion Respiratory Respiratory: Reports dyspnea and Reports dyspnea on exertion Gastrointestinal Gastrointestinal: Denies nausea and Denies vomiting Genitourinary Genitourinary: Denies dysuria and Reports urinary hesitancy Neurologic Neurologic: Denies seizure-like activity, Reports disequilibrium and Reports weakness PFSH All Active Problems (Updated 02/18/23 @ 00:04 by DWAYNE HEIN) Lower urinary tract symptoms (LUTS) (Acute) Urinary retention (Acute) Pneumonia (Acute) COPD (chronic obstructive pulmonary disease) (Chronic) COVID (Acute) Decreased vision of right eye (Acute) Pneumonia (Acute) Adult failure to thrive syndrome (Acute) Chronic anterior uveitis of right eye (Acute) Frequent falls (Acute) Lung nodules (Acute) Hyponatremia (Chronic) 12/2020- History of knee surgery (Acute) Smoker (Chronic) 100 plus pack years smoking Low back pain (Acute) History of alcoholism (Acute) Generalized osteoarthrosis (Acute) right knee Generalized convulsive epilepsy (Acute) Gastroesophageal reflux disease (Acute) Benign esophageal stricture (Acute) dilated 07/13 Medical History 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 Father No problems noted. Social History Smoking/Tobacco Use Status: Current every day Tobacco Type: cigarettes Quit status: considering quitting Second Hand Exposure: Yes Smoking risk assessment performed?: Yes Alcohol Intake: former Drug use: Never Substance use type: does not use Counseling given: Yes Caregiver/Support person: No Household members: spouse Housing: house Communication Needs: None Do you need help understanding health information?: Never Pets and animals: No Sexually active: No Do you think of yourself as: straight/heterosexual Current gender identity: decline to answer What is your relationship status?: How often do you talk on the phone with friends or family?: three or more times per week How often do you get together with friends or relatives?: decline to answer How often do you attend anglican or yazidism services?: decline to answer Do you belong to any clubs or organized social groups?: no Panel score (0-1 are the most socially isolated patients): 2 What type of physical activity do you participate in: decline to answer Duration: decline to answer Frequency: decline to answer Danette/Quaker: No preference Special danette needs: No Seatbelt use: sometimes Helmet use: Yes Helmet use: always Drive intox or ride w/intox truck driver: No Do you feel safe at home: Yes Do you feel safe in your relationship?: Yes Exam Const General: not in acute distress GI Palpation: soft and no masses Neuro General: patient alert and patient awake Results Last Vital Signs Temp 36.7 C 02/14/23 15:39 Pulse 78 02/14/23 15:39 Resp 18 02/14/23 15:39 BP 109/62 02/14/23 15:39 Pulse Ox 95 02/14/23 15:39 Labs 02/17/23 06:45 02/17/23 06:45 Labs: Laboratory Results - last 24 hr 02/13/23 02/13/23 02/14/23 16:00 18:25 06:16 WBC RBC Hgb Hct MCV MCH MCHC RDW Plt Count MPV Immature Gran % Neutrophils % Lymphocytes % Monocytes % Eosinophils % Basophils % Nucleated RBC % Absolute Neutrophils Absolute Lymphocytes Absolute Monocytes Absolute Eosinophils Absolute Basophils PT INR D-Dimer Sodium 131 L Potassium Chloride Carbon Dioxide Anion Gap BUN Creatinine Est GFR (CKD-EPI 2020) Glucose Calcium Magnesium Ferritin Total Bilirubin Conjugated Bilirubin AST ALT Alkaline Phosphatase C-Reactive Protein Total Protein Albumin Urine Color Yellow Urine Clarity Clear Urine pH 6.5 Ur Specific [place] 1.015 Urine Protein 30 H Urine Ketones Negative Urine Blood Trace-intact H Urine Nitrite Negative Urine Bilirubin Negative Urine Urobilinogen 1.0 H Ur Leukocyte Esterase Negative Urine RBC 0-2 Urine WBC 0-2 Ur Epithelial Cells Rare Urine Crystals Negative Urine Bacteria Negative Urine Casts Negative Urine Mucus Negative Ur Culture Indicated? No Urine Glucose Negative COVID-19 Source Nasopharynx SARS-CoV-2 (PCR) Positive A Influenza Type A (PCR) Negative Influenza Type B (PCR) Negative RSV (PCR) Negative 02/14/23 02/14/23 06:16 08:35 WBC 9.51 RBC 3.26 L Hgb 10.6 L Hct 29.9 L MCV 92 MCH 32.5 MCHC 35.5 RDW 12.3 Plt Count 337 MPV 10.1 Immature Gran % 0.6 Neutrophils % 73.2 Lymphocytes % 13.7 Monocytes % 12.3 Eosinophils % 0.0 Basophils % 0.2 Nucleated RBC % 0.0 Absolute Neutrophils 6.96 H Absolute Lymphocytes 1.30 Absolute Monocytes 1.17 H Absolute Eosinophils 0.00 Absolute Basophils 0.02 PT 14.2 H INR 1.5 H D-Dimer 1692 H Sodium 131 L Potassium 3.7 Chloride 96 L Carbon Dioxide 27.2 Anion Gap 7.8 BUN 6 L Creatinine 0.7 Est GFR (CKD-EPI 2020) 101.62 Glucose 95 Calcium 8.4 L Magnesium 1.6 L Ferritin 106 Total Bilirubin 0.2 Conjugated Bilirubin 0.1 AST 25 ALT 20 Alkaline Phosphatase 121 H C-Reactive Protein 18.57 H Total Protein 7.0 Albumin 2.5 L Urine Color Urine Clarity Urine pH Ur Specific [place] Urine Protein Urine Ketones Urine Blood Urine Nitrite Urine Bilirubin Urine Urobilinogen Ur Leukocyte Esterase Urine RBC Urine WBC Ur Epithelial Cells Urine Crystals Urine Bacteria Urine Casts Urine Mucus Ur Culture Indicated? Urine Glucose COVID-19 Source SARS-CoV-2 (PCR) Influenza Type A (PCR) Influenza Type B (PCR) RSV (PCR)
[2023-02-14] MEDS: REMDESIVIR 100 MG in Normal Saline 250 ML 250 MG IVPB (17:00)
--- NOTE | 2023-02-14 18:48 | W.PM.PROGNOT ---
Date of Service Date of service: 02/14/23 Time of Service: 18:54 Assessment and Plan Assessment and plan (1) COVID: Status: Acute Assessment and plan: Continue remdesivir. Encourage pulmonary toilet. (2) Pneumonia: Status: Acute Assessment and plan: Present on admission. If febrile, obtain blood cultures. Continue empiric azithromycin, cefepime. Await sputum culture and pneumonia studies for legionella, strep, mycoplasma. Encourage pulmonary toilet. Trend procalcitonin. As above Qualifiers: Pneumonia type: due to unspecified organism Laterality: bilateral (3) COPD (chronic obstructive pulmonary disease): Status: Chronic Assessment and plan: Continue symbicort. I wrote for combivent and prn albuterol. No role for steroids at this time. Encourage pulmonary toilet. (4) Hyponatremia: Status: Chronic Assessment and plan: Sodium back to baseline. No change in therapy (5) Seizure disorder: Assessment and plan: Continue outpatient antiepileptics: keppra, lorazepam, phenobarbital. (6) Urinary retention: Status: Acute Assessment and plan: Has a santillan. Continue flomax Urology is consulted. (7) Smoker: Status: Chronic Assessment and plan: continue nicotine replacement (8) DVT prophylaxis: Status: Acute Assessment and plan: lovenox (9) Discharge planning issues: Status: Acute Assessment and plan: Full code Continues to require hospitalization Subjective Subjective Interval history since last seen: Mr Mcmullen feels a little stronger. He did feel short of breath this morning but states that the inhalers really helped. Denies dizziness, CP, n/v. SOB is much better. He is on RA. Exam Narrative Exam Narrative: General: Pleasant male who is sitting up in a chair covered in blankets, on RA, no dyspnea, tachypnea, cyanosis, A&Ox3 HEENT: EOMI, MMM Heart: RRR, no m/r/g Lungs: coarse breath sounds B Abdomen: soft, nontender, nondistended Extremities: no edema BLEs Objective Last Vital Signs Temp 36.7 C 02/14/23 15:39 Pulse 78 02/14/23 15:39 Resp 18 02/14/23 15:39 BP 109/62 02/14/23 15:39 Pulse Ox 95 02/14/23 15:39 Laboratory Results - last 24 hr 12/09/3002/14/23 02/14/23 06:16 06:16 08:35 WBC 9.51 RBC 3.26 L Hgb 10.6 L Hct 29.9 L MCV 92 MCH 32.5 MCHC 35.5 RDW 12.3 Plt Count 337 MPV 10.1 Immature Gran % 0.6 Neutrophils % 73.2 Lymphocytes % 13.7 Monocytes % 12.3 Eosinophils % 0.0 Basophils % 0.2 Nucleated RBC % 0.0 Absolute Neutrophils 6.96 H Absolute Lymphocytes 1.30 Absolute Monocytes 1.17 H Absolute Eosinophils 0.00 Absolute Basophils 0.02 PT 14.2 H INR 1.5 H D-Dimer 1692 H Sodium 131 L 131 L Potassium 3.7 Chloride 96 L Carbon Dioxide 27.2 Anion Gap 7.8 BUN 6 L Creatinine 0.7 Est GFR (CKD-EPI 2020) 101.62 Glucose 95 Calcium 8.4 L Magnesium 1.6 L Ferritin 106 Total Bilirubin 0.2 Conjugated Bilirubin 0.1 AST 25 ALT 20 Alkaline Phosphatase 121 H C-Reactive Protein 18.57 H Total Protein 7.0 Albumin 2.5 L Objective Narrative Objective Narrative: CTA chest; No evidence of pulmonary embolism. Right upper lobe pneumonia. Mild patchy infiltrates in left lower lobe. Time Spent with Patient Time Spent with Patient: 35-49 minutes Time was spent: preparing to see the patient(eg.review tests), obtaining and/or reviewing separately otained hiistory, ordering medications,tests, procedures, referring, communicating with other health child day care center worker, indepentently interpreting results, counseling the patient and care coordination
[2023-02-14 20:33] LABS: Legionella Ag Detection Urine Negative (Negative)
[2023-02-14] MEDS: PHENobarbital 64.8 MG TAB 259.2 MG PO (20:45)
[2023-02-14] MEDS: AZITHROMYCIN 250 MG in Normal Saline 250 ML IVPB (20:45)
[2023-02-15 00:19] VITALS: PULSE 86
[2023-02-15] MEDS: CEFEPIME 1 GM in Normal Saline 50 ML IVPB ×3 (02:24→18:27)
[2023-02-15 05:02] VITALS: BP 132/60; PULSE 86; RESP 18; TEMP 37; O2SAT 93
[2023-02-15 06:44] LABS: Abs Immature Grans 0.03 10^3/uL (0.0-0.06); Absolute Lymphocyte Count 0.75 10^3/uL (1.2-3.4); Absolute Monocyte Count 0.76 10^3/uL (0.1-0.8); Absolute Neutrophil Count 5.57 10^3/uL (1.2-6.7); HCT 27.8 % (40.0-50.0); HGB 9.5 g/dL (13.5-17.5); Immature Grans % 0.4; Lymphocytes % 10.5; MCH 31.5 pg (27.0-33.0); MCHC 34.2 % (32.0-36.0); MCV 92 fL (80-95); Monocytes % 10.7; Neutrophils % 78.4; Platelet Count 316 10^3/uL (130-400); RBC 3.02 10^6/uL (4.36-5.78); RDW 12.2 % (11.8-14.1); RDW-SD 41.2 fL; WBC 7.11 10^3/uL (4.4-10.8)
[2023-02-15 06:57] LABS: INR 1.6 (0.9-1.1); Prothrombin Time 15.1 sec (9.1-11.1)
[2023-02-15 07:14] LABS: D-Dimer 1753 ng/mlFEU (<500)
[2023-02-15 07:25] LABS: ALT 19 U/L (16-63); AST 20 U/L (15-37); Albumin 2.2 g/dL (3.4-5.0); Alkaline Phosphatase 97 U/L (46-116); Anion Gap 6.2 mmol/L (3-11); BUN 5 mg/dL (7-18); Bilirubin, Direct 0.1 mg/dL (0.0-0.2); Bilirubin, Total 0.3 mg/dL (0.2-1.0); C-Reactive Protein 16.09 mg/dL (0.0-0.3); CO2 28.8 mmol/L (21.0-32.0); CREATININE 0.6 mg/dL (0.70-1.30); Calcium 8.3 mg/dL (8.5-10.1); Chloride 98 mmol/L (98-107); Estimated GFR 106.46 (mL/min/1.73m2); Ferritin 86 ng/mL (26-388); Glucose 94 mg/dL (74-106); Magnesium 1.8 mg/dL (1.8-2.4); Potassium 3.8 mmol/L (3.5-5.1); Sodium 133 mmol/L (136-145); Total Protein 6.5 g/dL (6.4-8.2)
[2023-02-15] MEDS: Ipratropium/Albuterol 4 GM 120 PUFF INH IH ×4 (07:35→20:12)
[2023-02-15] MEDS: Budesonide/Formoterol 80/4.5 6.9 GM 60 PUFF INH IH (07:35)
[2023-02-15] MEDS: Escitalopram 10 MG TAB PO (07:42)
[2023-02-15] MEDS: Zinc Sulfate 220 MG TAB PO (07:42)
[2023-02-15] MEDS: Ascorbic Acid 500 MG TAB PO ×2 (07:42→19:55)
[2023-02-15] MEDS: Tamsulosin 0.4 MG CAPCR PO (07:42)
[2023-02-15] MEDS: Aspirin E.C. 81 MG TABEC PO ×2 (07:42→19:55)
[2023-02-15] MEDS: levETIRAcetam 250 MG TAB 750 MG PO ×2 (07:43→19:56)
[2023-02-15] MEDS: LORazepam 1 MG TAB PO (07:43)
[2023-02-15] MEDS: Normal Saline 1,000 ML 75 ML IV ×2 (07:47→23:00)
[2023-02-15 07:54] LABS: Procalcitonin < 0.1 ng/mL
[2023-02-15 08:00] LABS: Vitamin D 25 Total 13.8 ng/mL (30-100)
--- NOTE | 2023-02-15 08:00 | DI.US_ITS ---
Exam(s) US EXTREMITY VENOUS BI EXAM: US EXTREMITY VENOUS BI CLINICAL HISTORY: elevated D-dimer, covid 19 TECHNIQUE: Grayscale, color, and doppler imaging of the deep venous system of both lower extremities was performed. COMPARISON: No exams were available for comparison FINDINGS: There is no evidence of intraluminal thrombus and there is normal compression and augmentation demons trated within the common femoral veins, femoral veins, and popliteal veins of both lower extremities. In the calves the interrogated veins also exhibit normal compression/ augmentation properties. The greater saphenous veins also appear patent as do the saphenofemoral junctions bilaterally.. IMPRESSION: 1. No ultrasound evidence of DVT in either lower extremity. DATA REPOSITORY:
[2023-02-15] MEDS: Enoxaparin 40 MG/0.4 ML SYR SC (08:33)
[2023-02-15 08:51] VITALS: O2SAT 96
--- NOTE | 2023-02-15 11:25 | PDOC.CMPRO ---
Date of service: 02/15/23 Time of Service: 11:25 Care Management Progress Note Progress Note Text Progress Note Text: S/O:Miguel remains on Covid precautions so CM was unable to meet with him in person. His WBC is starting to come down as is his CRP. He reported to the provider today that he is feeling better and that his major complaint at this time is weakness. He has been working with PT and will likely have new home health services for PT ordered upon discharge. A: Miguel is a 67 year old man admitted on 02/13/23 with Pneumonia and Covid P:Anticipate Miguel will be discharged home with new home health services for PT. He will follow up with his community providers and plan of care and transport with family. CM will follow and continue to support discharge planning needs.
--- NOTE | 2023-02-15 14:54 | PT.INTREAT ---
PT Notes Visit Reasons: Pneumonia, COVID Date: 02/15/2023 PRECAUTIONS: Fall, activity as tolerated, + covid/in isolation SUBJECTIVE: pt in recliner when approached for therapy this afternoon, reports he would like to go for a walk OBJECTIVE: PAIN: No c/o pain BED MOBILITY/TRANSFERS Sit-stand: SBA Stand-sit: SBA GAIT Assistive Device: FWW Weight bearing: Full Assist: S Distance: 20'increments due to limited space in pt room Deviation: Minimal SOB ? Therapeutic Exercises 13318 x1: Direct one-on-one instruction in therapeutic exercises to develop strength, endurance, range of motion and flexibility. Exercises: Sit to stand [id number] Static standing with weight shifting Dynamic standing doing high march, multi directional reaching heel raise, toe raise ASSESSMENT: Patient tolerated session well, with minimal SOB with gait training. He demonstrates ability to negotiate a flight of stairs without difficulty at this time. PLAN: Continue with global strengthening and continue with gait training, as tolerated for progression toward baseline level of function. TREATMENT CODE/TIME: [id number], [id number] 31mins (2:25-2:56pm)
[2023-02-15 14:59] VITALS: BP 122/66; PULSE 83; RESP 18; TEMP 35.3; O2SAT 96
--- NOTE | 2023-02-15 15:14 | PHACLINREV_ITS ---
Pharmacy Admission Review Admission Clinical Review Admission Pharmacy Review: (Updated 02/15/23 @ 07:01 by Carlos Olmstead MD) Lower urinary tract symptoms (LUTS) (Acute) Urinary retention (Acute) Discharge planning issues (Acute) DVT prophylaxis (Acute) Pneumonia (Acute) COVID (Acute) Pneumonia (Acute) zonisamide Allergy (Unknown, Verified 02/13/23 15:32) sertraline Adverse Reaction (Intermediate, Verified 02/13/23 15:32) cefuroxime Adverse Reaction (Unknown, Verified 02/13/23 15:32) guaifenesin Adverse Reaction (Unknown, Verified 02/13/23 15:32) Resuscitation Status Full Code Height 5 ft 5 in Weight 74.1 kg Comments Comments/Follow Ups: Covid Pneumonia not requiring oxygen: Remdesivir (day 3), Azith IV and Cefepime (day 3) Ultrasound of LE because of elevated D-dimer: DVT ruled out, PE ruled out previously. Lab sendouts pending for Legionella, strep and mycoplasma, Blood culture and sputum no growth x48h Pharmacy Admission Review Renal Dosing Renal Dosing: CrCl~68ml/min BUN 5 mg/dL (7-18) L 02/15/23 06:16 Creatinine 0.6 mg/dL (0.70-1.30) L 02/15/23 06:16 Anticoagulation Anticoagulation: Hgb 9.5 g/dL (13.5-17.5) L 02/15/23 06:16 Hct 27.8 % (40.0-50.0) L 02/15/23 06:16 Plt Count 316 10^3/uL (130-400) 02/15/23 06:16 INR 1.6 (0.9-1.1) H 02/15/23 06:16 Creatinine 0.6 mg/dL (0.70-1.30) L 02/15/23 06:16 DVT Prophylaxis: Reviewed Medications: Enoxaparin Opiate Usage Evaluate Pain Scale/Pains Meds: N/A Relevant Labs Relevant Labs: Sodium 133 mmol/L (136-145) L 02/15/23 06:16 Potassium 3.8 mmol/L (3.5-5.1) 02/15/23 06:16 Chloride 98 mmol/L (98-107) 02/15/23 06:16 Magnesium 1.8 mg/dL (1.8-2.4) 02/15/23 06:16 C-Reactive Protein 16.09 mg/dL (0.0-0.3) H 02/15/23 06:16 D-Dimer elevated, C-reactive elevated Low Vit-D H/H low 9.5/27.8 Procal < 0.1 DM Control DM Control: N/A Cardiac Review Cardiac Review: Troponin I < 50 ng/L (<or=60) 02/13/23 16:00 IV to PO Switch IV Medications: Reviewed (IV Azithromycin) Home Meds Home Med List reviewed: Intervened ( reported he was prescribed Prednisolone 1% opth suspn....Opth office called the coordinator to give specific instructions. Med ordered after approval by . Prednisolone 1% 1 gtt OD twice a day for 2 weeks, then once daily for 2 weeks) Current Meds Current Medication Order Review: Reviewed Comments: Seizure disorder [facility] Review Relevant Labs: Relevant Labs 02/15/23 06:16 C-Reactive Protein 16.09 H Procalcitonin < 0.1 Pharmacy Antibiotic Activity: C/S review Comments: no growth x48h Comments Comments/Follow Ups: Covid Pneumonia not requiring oxygen: Remdesivir (day 3), Azith IV and Cefepime (day 3) Ultrasound of LE because of elevated D-dimer: DVT ruled out, PE ruled out previously. Lab sendouts pending for Legionella, strep and mycoplasma, Blood culture and sputum no growth x48h SOAP Subjective: Reported as weak, working with PT, no oxygen requirements, does not want SNF
--- NOTE | 2023-02-15 16:23 | W.PM.PROGNOT ---
Date of Service Date of service: 02/15/23 Time of Service: 14:15 Assessment and Plan Assessment and plan (1) COVID: Status: Acute Assessment and plan: Continue remdesivir. Encourage pulmonary toilet. Not requiring oxygen. Rising ddimer - no DVT or PE. (2) Pneumonia: Status: Acute Assessment and plan: Present on admission. Continue empiric azithromycin, cefepime. Await sputum culture and pneumonia studies for legionella, strep, mycoplasma. Encourage pulmonary toilet. Trend procalcitonin. As above Qualifiers: Laterality: bilateral Pneumonia type: due to unspecified organism (3) COPD (chronic obstructive pulmonary disease): Status: Chronic Assessment and plan: Continue symbicort, combivent, and prn albuterol. No role for steroids at this time. Encourage pulmonary toilet. (4) Hyponatremia: Status: Chronic Assessment and plan: Sodium back to baseline. No change in therapy (5) Seizure disorder: Assessment and plan: Continue outpatient antiepileptics: keppra, lorazepam, phenobarbital. (6) Urinary retention: Status: Acute Assessment and plan: Has a santillan. Continue flomax Urology recommends a voiding trial in 5 days with instructions to straight cath for discomfort only (not based on bladder scans). (7) Smoker: Status: Chronic Assessment and plan: continue nicotine replacement (8) DVT prophylaxis: Status: Acute Assessment and plan: lovenox (9) Discharge planning issues: Status: Acute Assessment and plan: Full code Continues to require hospitalization Subjective Subjective Interval history since last seen: Mr Mcmullen says that his appetite is getting better. Cough is minimal. Denies dizziness, CP, SOB. On RA. Had a BM. Still feels very weak. Exam Narrative Exam Narrative: General: Pleasant male who is sitting up in a chair, on RA, no dyspnea, tachypnea, cyanosis, A&Ox3, [place] HEENT: EOMI, MMM Heart: RRR, no m/r/g Lungs: coarse breath sounds B Abdomen: soft, nontender, nondistended Extremities: no edema BLEs Objective Last Vital Signs Temp 35.3 C L 02/15/23 14:59 Pulse 83 02/15/23 14:59 Resp 18 02/15/23 14:59 BP 122/66 02/15/23 14:59 Pulse Ox 96 02/15/23 14:59 Laboratory Results - last 24 hr 02/13/23 02/15/23 22:10 06:16 WBC 7.11 RBC 3.02 L Hgb 9.5 L Hct 27.8 L MCV 92 MCH 31.5 MCHC 34.2 RDW 12.2 Plt Count 316 MPV 10.0 Immature Gran % 0.4 Neutrophils % 78.4 Lymphocytes % 10.5 Monocytes % 10.7 Eosinophils % 0.0 Basophils % 0.0 Nucleated RBC % 0.0 Absolute Neutrophils 5.57 Absolute Lymphocytes 0.75 L Absolute Monocytes 0.76 Absolute Eosinophils 0.00 Absolute Basophils 0.00 PT 15.1 H INR 1.6 H D-Dimer 1753 H Sodium 133 L Potassium 3.8 Chloride 98 Carbon Dioxide 28.8 Anion Gap 6.2 BUN 5 L Creatinine 0.6 L Est GFR (CKD-EPI 2020) 106.46 Glucose 94 Calcium 8.3 L Magnesium 1.8 Ferritin 86 Total Bilirubin 0.3 Conjugated Bilirubin 0.1 AST 20 ALT 19 Alkaline Phosphatase 97 C-Reactive Protein 16.09 H Total Protein 6.5 Albumin 2.2 L 25-OH Vitamin D Total 13.8 L Procalcitonin < 0.1 Urine Legionella Ag Negative Objective Narrative Objective Narrative: Venous doppler BLEs: 1. No ultrasound evidence of DVT in either lower extremity. Time Spent with Patient Time Spent with Patient: 25-34 minutes Time was spent: preparing to see the patient(eg.review tests), obtaining and/or reviewing separately otained hiistory, ordering medications,tests, procedures, referring, communicating with other health wild animal caretaker, indepentently interpreting results, counseling the patient and care coordination
[2023-02-15] MEDS: REMDESIVIR 100 MG in Normal Saline 250 ML 250 MG IVPB (17:20)
[2023-02-15 19:39] VITALS: BP 133/73; PULSE 76; RESP 18; TEMP 37.4; O2SAT 97
[2023-02-15] MEDS: AZITHROMYCIN 250 MG in Normal Saline 250 ML IVPB (19:56)
[2023-02-15] MEDS: PHENobarbital 64.8 MG TAB 259.2 MG PO (21:08)
[2023-02-15 23:47] VITALS: BP 126/69; PULSE 86; RESP 18; TEMP 37.1; O2SAT 96
[2023-02-16] MEDS: CEFEPIME 1 GM in Normal Saline 50 ML IVPB ×3 (02:18→17:45)
[2023-02-16 03:39] VITALS: BP 119/62; PULSE 79; RESP 18; TEMP 37.4; O2SAT 94
[2023-02-16 06:44] LABS: Abs Immature Grans 0.04 10^3/uL (0.0-0.06); Absolute Basophil Count 0.01 10^3/uL (0.0-0.2); Absolute Lymphocyte Count 1.13 10^3/uL (1.2-3.4); Absolute Monocyte Count 0.74 10^3/uL (0.1-0.8); Absolute Neutrophil Count 4.28 10^3/uL (1.2-6.7); Basophils % 0.2; HCT 28.4 % (40.0-50.0); HGB 9.7 g/dL (13.5-17.5); Immature Grans % 0.6; Lymphocytes % 18.2; MCH 31.1 pg (27.0-33.0); MCHC 34.2 % (32.0-36.0); MCV 91 fL (80-95); MPV 10.4 fL (8.0-11.0); Monocytes % 11.9; Neutrophils % 69.1; Platelet Count 310 10^3/uL (130-400); RBC 3.12 10^6/uL (4.36-5.78); RDW 12.3 % (11.8-14.1); RDW-SD 41.1 fL
[2023-02-16 06:53] LABS: INR 1.6 (0.9-1.1); Prothrombin Time 15.7 sec (9.1-11.1)
[2023-02-16 07:09] LABS: ALT 23 U/L (16-63); AST 28 U/L (15-37); Albumin 2.2 g/dL (3.4-5.0); Alkaline Phosphatase 99 U/L (46-116); Anion Gap 7.6 mmol/L (3-11); BUN 4 mg/dL (7-18); Bilirubin, Direct 0.1 mg/dL (0.0-0.2); Bilirubin, Total 0.3 mg/dL (0.2-1.0); C-Reactive Protein 13.39 mg/dL (0.0-0.3); CO2 26.4 mmol/L (21.0-32.0); CREATININE 0.6 mg/dL (0.70-1.30); Calcium 8.1 mg/dL (8.5-10.1); Chloride 98 mmol/L (98-107); Estimated GFR 106.46 (mL/min/1.73m2); Glucose 84 mg/dL (74-106); Magnesium 1.7 mg/dL (1.8-2.4); Potassium 3.7 mmol/L (3.5-5.1); Sodium 132 mmol/L (136-145); Total Protein 6.5 g/dL (6.4-8.2)
[2023-02-16 07:18] LABS: D-Dimer 1542 ng/mlFEU (<500)
[2023-02-16 07:44] LABS: Ferritin 77 ng/mL (26-388)
[2023-02-16 08:00] VITALS: BP 109/56; PULSE 86; RESP 18; TEMP 37.1; O2SAT 93
[2023-02-16] MEDS: Enoxaparin 40 MG/0.4 ML SYR SC (08:11)
[2023-02-16] MEDS: Zinc Sulfate 220 MG TAB PO (08:12)
[2023-02-16] MEDS: Cholecalciferol (Vitamin D3) 1,000 UNIT TAB 2000 UNITS PO (08:12)
[2023-02-16] MEDS: Ascorbic Acid 500 MG TAB PO ×2 (08:12→20:23)
[2023-02-16] MEDS: Aspirin E.C. 81 MG TABEC PO ×2 (08:12→20:23)
[2023-02-16] MEDS: LORazepam 1 MG TAB PO (08:13)
[2023-02-16] MEDS: levETIRAcetam 250 MG TAB 750 MG PO ×2 (08:13→20:23)
[2023-02-16] MEDS: Tamsulosin 0.4 MG CAPCR PO (08:13)
[2023-02-16] MEDS: Escitalopram 10 MG TAB PO (08:13)
[2023-02-16] MEDS: Ipratropium/Albuterol 4 GM 120 PUFF INH IH ×4 (09:33→20:25)
--- NOTE | 2023-02-16 11:09 | PGE_ITS ---
Date of Service Date of service: 02/16/23 Time of Service: 11:09 Assessment and Plan Assessment and plan (1) COVID: Status: Acute Assessment and plan: Continue remdesivir day #4, will finish out his Remdesivir tomorrow then dc home. Encourage pulmonary toilet. Not requiring oxygen. Rising ddimer - no DVT or PE. continue lovenox 40 mg SC daily for DVT prophylaxis professional time spent interviewing and examining patient, discussion of goals of care with hospital team (care management, nursing and consulting professionals) was 30 minutes. (2) Pneumonia: Status: Acute Assessment and plan: Present on admission. Continue empiric azithromycin, cefepime. sputum culture was NOF, nondiagnostic, urine legionella was negative. Strep antigen and sputum mycoplasma pending. Clinically he is improving. will plan for dc home and continue w/ Augementin and azithromycin for 3 more days upon discharge for total of 7 days. encourage pulmonary toiletry w/ acapella and IS Qualifiers: Laterality: bilateral Lung location: upper lobe of lung Pneumonia type: due to unspecified organism Qualified Code(s): J18.9 - Pneumonia, unspecified organism (3) COPD (chronic obstructive pulmonary disease): Status: Chronic Assessment and plan: as above. Will dc his Symbicort as he says this is making him nauseated. switch to Stiolto Respimat Qualifiers: COPD type: unspecified COPD Qualified Code(s): J44.9 - Chronic obstructive pulmonary disease, unspecified (4) Hyponatremia: Status: Chronic Assessment and plan: improving. 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 repeat labs in the a.m. (5) Seizure disorder: Assessment and plan: Continue outpatient antiepileptics: keppra, lorazepam, phenobarbital. (6) Urinary retention: Status: Acute Assessment and plan: Has a santillan. Continue flomax Urology recommends a voiding trial in 5 days with instructions to straight cath for discomfort only (not based on bladder scans). (7) Smoker: Status: Chronic (8) DVT prophylaxis: Status: Acute Assessment and plan: lovenox (9) Discharge planning issues: Status: Acute Assessment and plan: Full code Continues to require hospitalization Subjective Subjective Interval history since last seen: Patient is feeling better. Still has cough, moist whitish mucous. Sputum culture was sent but was oral contaminant. He is afebrile and not requiring any supplemental oxygen. Exam Narrative Exam Narrative: Miguel is sitting up in his chair he is alert and oriented No acute respiratory distress able to talk in complete sentences. He is complaining however that when he uses his Symbicort he gets nauseated. Otherwise appetite is improving and he is having normal bowel movements. Lungs are clear to auscultation no rhonchi wheezes or rales Heart is regular rate and rhythm Abdomen soft nondistended nontender Lower extremities without edema Objective Last Vital Signs Temp 37.4 C 02/16/23 03:39 Pulse 79 02/16/23 03:39 Resp 18 02/16/23 03:39 BP 119/62 02/16/23 03:39 Pulse Ox 94 02/16/23 03:39 Laboratory Results - last 24 hr 02/16/23 06:14 WBC 6.20 RBC 3.12 L Hgb 9.7 L Hct 28.4 L MCV 91 MCH 31.1 MCHC 34.2 RDW 12.3 Plt Count 310 MPV 10.4 Immature Gran % 0.6 Neutrophils % 69.1 Lymphocytes % 18.2 Monocytes % 11.9 Eosinophils % 0.0 Basophils % 0.2 Nucleated RBC % 0.0 Absolute Neutrophils 4.28 Absolute Lymphocytes 1.13 L Absolute Monocytes 0.74 Absolute Eosinophils 0.00 Absolute Basophils 0.01 PT 15.7 H INR 1.6 H D-Dimer 1542 H Sodium 132 L Potassium 3.7 Chloride 98 Carbon Dioxide 26.4 Anion Gap 7.6 BUN 4 L Creatinine 0.6 L Est GFR (CKD-EPI 2020) 106.46 Glucose 84 Calcium 8.1 L Magnesium 1.7 L Ferritin 77 Total Bilirubin 0.3 Conjugated Bilirubin 0.1 AST 28 ALT 23 Alkaline Phosphatase 99 C-Reactive Protein 13.39 H Total Protein 6.5 Albumin 2.2 L Time Spent with Patient Time Spent with Patient: 25-34 minutes Time was spent: preparing to see the patient(eg.review tests), ordering medications,tests, procedures, referring, communicating with other health healthcare network consultant, indepentently interpreting results, counseling the patient and care coordination
[2023-02-16] MEDS: Magnesium Gluconate 500 MG TAB PO (12:00)
--- NOTE | 2023-02-16 12:15 | PT.INTREAT ---
PT Notes Visit Reasons: Pneumonia, COVID Inpatient Physical Therapy Treatment Note [facility] Date: 02/16/23 SUBJECTIVE: Miguel states that he is doing very well. The MD says I can go home tomorrow. OBJECTIVE: []? PAIN: none VITALS: ?monitored by nursing Therapeutic Activities ([id number]): Direct one-on-one instruction in dynamic activities to improve functional performance. ? BED MOBILITY/TRANSFERS? pt already seated in chair? Sit-stand:SBA ? Stand-sit: SBA? Provided skilled cues and instruction on performance and technique throughout. ? Therapeutic Exercises ([id number]): Direct one-on-one instruction in therapeutic exercises to develop strength, endurance, range of motion and flexibility. ? Exercises ?sit to stands/mini squats x10, HR x10, seated LAQ, hip flex and hip ab/add x20 each. GAIT? Assistive Device:FWW ? Weight bearing: full Assist: SBA? Distance:? 20' x4 ? (limited in room due to COVID precautions)? Deviation: decreased reece from previous CVA.?Provided skilled instruction in proper exercise performance ASSESSMENT:? tolerated session very well. No coughing or SOB during ex today. Seems to be back to his base line per subjective report. PLAN: possible dc to home tomorrow, if he is still here with continue to work on strength and endurance to improve his functional mobility. TREATMENT CODE/TIME: 20 min [id number]
[2023-02-16] MEDS: REMDESIVIR 100 MG in Normal Saline 250 ML 250 MG IVPB (14:33)
[2023-02-16 15:39] VITALS: BP 131/66; PULSE 75; RESP 18; TEMP 36.8; O2SAT 94
[2023-02-16 20:19] VITALS: BP 122/64; PULSE 74; RESP 18; TEMP 36.6; O2SAT 96
[2023-02-16] MEDS: PHENobarbital 64.8 MG TAB 259.2 MG PO (20:23)
[2023-02-16] MEDS: AZITHROMYCIN 250 MG in Normal Saline 250 ML IVPB (20:24)
[2023-02-16 23:33] VITALS: BP 138/71; PULSE 80; RESP 18; TEMP 37.1; O2SAT 95
[2023-02-17] MEDS: CEFEPIME 1 GM in Normal Saline 50 ML IVPB ×2 (02:02→09:34)
[2023-02-17 03:49] VITALS: BP 148/74; PULSE 87; RESP 18; TEMP 37; O2SAT 95
[2023-02-17 07:02] LABS: Abs Immature Grans 0.02 10^3/uL (0.0-0.06); Absolute Basophil Count 0.01 10^3/uL (0.0-0.2); Absolute Lymphocyte Count 0.77 10^3/uL (1.2-3.4); Absolute Monocyte Count 0.67 10^3/uL (0.1-0.8); Absolute Neutrophil Count 5.45 10^3/uL (1.2-6.7); Basophils % 0.1; HCT 30.2 % (40.0-50.0); HGB 10.6 g/dL (13.5-17.5); Immature Grans % 0.3; Lymphocytes % 11.1; MCH 32.2 pg (27.0-33.0); MCHC 35.1 % (32.0-36.0); MCV 92 fL (80-95); MPV 10.2 fL (8.0-11.0); Monocytes % 9.7; Neutrophils % 78.8; Platelet Count 322 10^3/uL (130-400); RBC 3.29 10^6/uL (4.36-5.78); RDW 12.3 % (11.8-14.1); RDW-SD 41.5 fL; WBC 6.92 10^3/uL (4.4-10.8)
[2023-02-17 07:24] VITALS: BP 126/76; PULSE 87; RESP 18; TEMP 37.1; O2SAT 94
[2023-02-17 07:28] LABS: ALT 30 U/L (16-63); AST 37 U/L (15-37); Albumin 2.4 g/dL (3.4-5.0); Alkaline Phosphatase 112 U/L (46-116); Anion Gap 7.1 mmol/L (3-11); BUN 5 mg/dL (7-18); Bilirubin, Total 0.2 mg/dL (0.2-1.0); CO2 29.9 mmol/L (21.0-32.0); CREATININE 0.7 mg/dL (0.70-1.30); Calcium 8.5 mg/dL (8.5-10.1); Chloride 93 mmol/L (98-107); Estimated GFR 101.62 (mL/min/1.73m2); Glucose 100 mg/dL (74-106); Magnesium 1.6 mg/dL (1.8-2.4); Potassium 3.9 mmol/L (3.5-5.1); Sodium 130 mmol/L (136-145); Total Protein 7.1 g/dL (6.4-8.2)
[2023-02-17 07:39] LABS: C-Reactive Protein 12.64 mg/dL (0.0-0.3)
[2023-02-17] MEDS: LORazepam 1 MG TAB PO (07:39)
[2023-02-17] MEDS: Cholecalciferol (Vitamin D3) 1,000 UNIT TAB 2000 UNITS PO (07:39)
[2023-02-17] MEDS: Magnesium Gluconate 500 MG TAB PO (07:39)
[2023-02-17] MEDS: Ascorbic Acid 500 MG TAB PO (07:40)
[2023-02-17] MEDS: Aspirin E.C. 81 MG TABEC PO (07:40)
[2023-02-17] MEDS: Escitalopram 10 MG TAB PO (07:40)
[2023-02-17] MEDS: levETIRAcetam 250 MG TAB 750 MG PO (07:40)
[2023-02-17] MEDS: Enoxaparin 40 MG/0.4 ML SYR SC (07:40)
[2023-02-17] MEDS: Tamsulosin 0.4 MG CAPCR PO (07:40)
[2023-02-17] MEDS: Zinc Sulfate 220 MG TAB PO (07:40)
[2023-02-17 07:43] LABS: Procalcitonin < 0.1 ng/mL
[2023-02-17] MEDS: Ipratropium/Albuterol 4 GM 120 PUFF INH IH ×2 (09:26→12:15)
[2023-02-17] MEDS: Tiotropium/Olodaterol 10 PUFF INHALER 2 PUFF IH (09:26)
[2023-02-17] MEDS: Normal Saline Flush 10 ML SYR IVP (09:35)
[2023-02-17] MEDS: REMDESIVIR 100 MG in Normal Saline 250 ML 250 MG IVPB (10:12)
[2023-02-17 10:54] VITALS: BP 138/69; PULSE 79; RESP 18; TEMP 37.3; O2SAT 93
--- NOTE | 2023-02-17 12:13 | PT.INTREAT ---
PT Notes Visit Reasons: Pneumonia, COVID Inpatient Physical Therapy Treatment Note [facility] Date: 02/17/23 SUBJECTIVE: Miguel states that he is doing very well. I;m ready to go home if they let me. OBJECTIVE: []? PAIN: none VITALS: ?monitored by nursing Therapeutic Activities ([id number]): Direct one-on-one instruction in dynamic activities to improve functional performance. ? BED MOBILITY/TRANSFERS? pt already seated in chair? Sit-stand:SBA ? Stand-sit: SBA? Provided skilled cues and instruction on performance and technique throughout. ? Therapeutic Exercises (85908o8): Direct one-on-one instruction in therapeutic exercises to develop strength, endurance, range of motion and flexibility. ? Exercises ?sit to stands/mini squats x10, HR x10, seated LAQ, hip flex and hip ab/add x20 each. GAIT? Assistive Device:FWW ? Weight bearing: full Assist: SBA? Distance:? 20' x4 ? (limited in room due to COVID precautions)? Deviation: decreased reece from previous CVA.?Provided skilled instruction in proper exercise performance ASSESSMENT:? tolerated session very well. NO SOB noted. Mild coughing at end of session. PLAN: possible dc home later today. Otherwise will continue to work on strength and functional mobility to tolerance. TREATMENT CODE/TIME: 20 min [id number]
--- NOTE | 2023-02-17 12:28 | W.PM.DS.N ---
Date of service: 02/17/23 Time of Service: 12:29 DS: Diagnosis Discharge Diagnosis (1) COVID: Status: Acute (2) Pneumonia: Status: Acute (3) COPD (chronic obstructive pulmonary disease): Status: Chronic (4) Hyponatremia: Status: Chronic (5) Seizure disorder: (6) Urinary retention: Status: Acute (7) Smoker: Status: Chronic (8) DVT prophylaxis: Status: Acute (9) Discharge planning issues: Status: Acute Discharge Plan Disposition Patient Disposition: Home W/Home Health Services Condition: Improving Discharge Details Reason For Visit: Pneumonia, COVID Admit Date/Time: 02/13/23 18:53 Admit Provider: Jones Art Attending Provider: Jones Art Primary Care Provider: Maco Altamirano Hospital Course Hospital Course: 67-year-old male with history of COPD, seizure disorder presented to the emergency department on 02/13/2023 with increased generalized weakness to the point was unable to ambulate at home and with his walker he had previously been diagnosed with pneumonia on the day before after being seen in the emergency department on 02/12/2023 and discharged with a prescription for doxycycline. Patient was found to be dehydrated started on IV fluids chest x-ray was repeated now showed a right upper lobe infiltrate and he was started on cefepime and azithromycin and vancomycin. Nasal swab was obtained for Fluvid and came back positive for COVID. Vancomycin was discontinued and Remdesivir was ordered. Venous blood gas was obtained and was not found to have CO2 retention. He was noted to be hyponatremic on admission with a serum sodium of 127 and a low magnesium of 1.6. Troponin was negative and urine UA was negative. Patient was admitted to the medical/surgical floor. He had transiently had been hypoxic on 02/12/2023 with a saturation as low as 90% but after representing to the emergency department on 02/13/2023 he was no longer hypoxemic and did not require supplemental oxygen the rest of his hospital stay. Oxygen saturation varied between 93 to 97%. He was primarily admitted because of his generalized weakness and inability to ambulate it was felt that it was not safe to discharge him home. Because of his underlying COPD and was felt that he would benefit from continued Remdesivir treatment of his COVID-19 although his pneumonia appear to be more consistent with a community-acquired pneumonia rather than COVID-19 pneumonia. Patient received 5 days of remdesivir and completed 5 days of IV antibiotics. He will be discharged home with 4 more days of oral antibiotics including Omnicef 300 mg twice daily as well as azithromycin 250 mg p.o. daily. It is recommended that he have a follow-up chest x-ray in 2 to 4 weeks. Home Meds and New Rx's Prescriptions: New albuterol sulfate [Ventolin HFA] 90 mcg/actuation Hfa Aerosol Inhaler 2 puff inhalation Q4H PRN PRNQty: 0 0RF benzonatate 200 mg Capsule 200 mg PO TID PRN PRN10 Days Qty: 30 0RF Combivent Respimat 20-100 mcg/actuation Mist 1 puff inhalation QID Qty: 0 0RF Inhaler, Assist Devices [Pocket Chamber] 1 ea miscellaneous DIRECTED Qty: 0 0RF tamsulosin 0.4 mg Capsule 0.4 mg PO DAILY 30 Days Qty: 30 0RF magnesium gluconate 27 mg magnesium (500 mg) Tablet 500 mg PO BID 30 Days Qty: 60 0RF Stiolto Respimat 2.5-2.5 mcg/actuation Mist 2 puff inhalation DAILY Qty: 4 0RF cefdinir 300 mg capsule 300 mg PO BID 3 Days Qty: 6 0RF azithromycin 250 mg tablet 250 mg PO DAILY 4 Days Qty: 4 0RF Rx Instructions: start on day 2 of therapy Continued levetiracetam [Keppra] 750 mg tablet 750 mg PO BID Qty: 180 3RF sucralfate [Carafate] 1 gram tablet 1 g PO BID PRN (Reason: gerd) Qty: 180 4RF escitalopram oxalate [Lexapro] 10 mg tablet 10 mg PO DAILY Qty: 90 3RF aspirin 81 mg tablet,delayed release (DR/EC) 81 mg PO BID Qty: 90 3RF nicotine [Nicoderm CQ] 21 mg/24 hr patch 24 hour 1 patch transdermal Q24H Qty: 28 0RF vitamin B complex Capsule 1 cap PO .QOD phenobarbital 64.8 mg tablet 259.2 mg PO HS Qty: 360 3RF lorazepam 1 mg tablet 1 mg PO DAILY Qty: 40 2RF Rx Instructions: 1 daily and 1 as needed for seizure prednisolone acetate 1 % drops,suspension 1 drp ophthalmic (eye) BID Patient Comments: for right eye BID for 14 days. Discontinued fluticasone propionate [Flovent Diskus] 100 mcg/actuation blister with device 2 inh inhalation BID Qty: 180 4RF Discharge Instructions Instructions: Urinary Retention in Men (GEN), Santillan Catheter Placement and Care (DC), Bacterial Pneumonia (DC), How to Change a Catheter Drainage Bag (DC) Additional Instructions: You have been treated for bacterial pneumonia and COVID-19 infection. You were treated for 5 days w/ IV antibiotics and iv antiviral Remdesivir. You developed acute urinary retention and required placement of santillan catheter. Please follow your nurses directions on care of the santillan and follow up w/ Dr. Carlos Olmstead, urologist at [facility] in the next week to have the catheter removed and to ensure that you are adequately voiding. You have been prescribed 4 more days of oral antibiotics. You should have your PCP repeat your chest xray in 3 to 4 weeks to ensure that all infiltrates have cleared on your chest xray. Stand Alone Forms: Nursing Discharge Form Referrals: Maco Altamirano EDUCATIONAL INTERPRETER [Primary Care Provider] - (Please call Saturday to make a follow up appointment. patient needs follow up chest xray in 3 to 4 weeks) Carlos Olmstead MD [ [facility] STAFF PHYSICIAN] - (patient needs post hospital follow up of urinary retention to remove santillan Office will call you Saturday to make a follow up appointment) Activity:: Activity as Tolerated Equipment/Supplies:: Walker Diet:: Normal Diet Discharge Orders Discharge Orders: Discharge Order (Routine); Ordered 02/17/23 Ordered By: Jordon Knox DS: Summary Time Spent with Patient providing and/or coordinating discharge services: Greater than 30 minutes Specific discharge activities: Interview/exam of patient; review of discharge instructions, completion of prescriptions/discharge instructions; discussion w/ nursing and CM; documentation of hospital visit Status at Discharge Functional status at discharge: uses cane/walker Overall status at discharge: patient is progressing back to baseline Mental Status: mental status grossly normal Speech and Movement: speech and movement normal Mood: congruent mood Affect: normal affect Exam Narrative Exam Narrative: Miguel is doing well he is not requiring any oxygen he is up out of his chair and ambulated with use of a walker and did well for physical therapy. No dyspnea and no discomfort. Lungs are clear to auscultation Heart is regular rate and rhythm no murmur rub or gallop Abdomen soft and nontender Santillan catheter draining clear yellow urine Lower extremities without edema Psych Mental Status: mental status grossly normal Speech and Movement: speech and movement normal Mood: congruent mood Affect: normal affect DS: Data Vitals/I&O Vitals and I&O: Vital Signs Temperature 37.3 C 02/17/23 10:54 Temperature Source Tympanic 02/17/23 10:54 Pulse 79 02/17/23 10:54 Pulse Rhythm Regular 02/17/23 07:35 Respiratory Rate 18 02/17/23 10:54 Respiratory Effort Normal, Non-Labored 02/17/23 07:35 Respiratory Depth Normal 02/17/23 07:35 Respiratory Pattern Normal 02/17/23 07:35 Blood Pressure 138/69 02/17/23 10:54 Pulse Oximetry 93 02/17/23 10:54 Oxygen Delivery Method Room Air 02/17/23 10:54 Oxygen Flow Rate 0 02/17/23 10:54 Pain Level 0 02/17/23 07:24 Comment pT having coughing fit at this time 02/14/23 10:51 Intake & Output 02/16/23 02/17/23 02/17/23 23:59 11:59 23:59 Intake Total 1550 / 2100 710 / 710 Output Total 1550 / 2650 1425 / 1425 Balance 0 / -550 -715 / -715 Intake: IV 1550 / 1650 350 / 350 Oral 360 / 360 Output: Urine 1550 / 2650 1425 / 1425 Other: Urine Color Yellow Yellow Urine Appearance Cloudy Clear Comment catheter void Stool Size Small Stool Characteristics Hard Brown Data Completed and Pending Labs on day of discharge: Labs from last 24 hours 02/17/23 06:45 WBC 6.92 RBC 3.29 L Hgb 10.6 L Hct 30.2 L MCV 92 MCH 32.2 MCHC 35.1 RDW 12.3 Plt Count 322 MPV 10.2 Immature Gran % 0.3 Neutrophils % 78.8 Lymphocytes % 11.1 Monocytes % 9.7 Eosinophils % 0.0 Basophils % 0.1 Nucleated RBC % 0.0 Absolute Neutrophils 5.45 Absolute Lymphocytes 0.77 L Absolute Monocytes 0.67 Absolute Eosinophils 0.00 Absolute Basophils 0.01 Sodium 130 L Potassium 3.9 Chloride 93 L Carbon Dioxide 29.9 Anion Gap 7.1 BUN 5 L Creatinine 0.7 Est GFR (CKD-EPI 2020) 101.62 Glucose 100 Calcium 8.5 Magnesium 1.6 L Total Bilirubin 0.2 AST 37 ALT 30 Alkaline Phosphatase 112 C-Reactive Protein 12.64 H Total Protein 7.1 Albumin 2.4 L Procalcitonin < 0.1 PFSH All Active Problems Lower urinary tract symptoms (LUTS) (Acute) Urinary retention (Acute) Discharge planning issues (Acute) DVT prophylaxis (Acute) Pneumonia (Acute) COPD (chronic obstructive pulmonary disease) (Chronic) COVID (Acute) Decreased vision of right eye (Acute) Pneumonia (Acute) Adult failure to thrive syndrome (Acute) Chronic anterior uveitis of right eye (Acute) Frequent falls (Acute) Lung nodules (Acute) Hyponatremia (Chronic) 12/2020-133 History of knee surgery (Acute) Smoker (Chronic) 100 plus pack years smoking Low back pain (Acute) History of alcoholism (Acute) Generalized osteoarthrosis (Acute) right knee Generalized convulsive epilepsy (Acute) Gastroesophageal reflux disease (Acute) Benign esophageal stricture (Acute) dilated 07/13 Medical History 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 Father No problems noted. Social History Smoking/Tobacco Use Status: Current every day Tobacco Type: cigarettes Quit status: considering quitting Second Hand Exposure: Yes Smoking risk assessment performed?: Yes Alcohol Intake: former Drug use: Never Substance use type: does not use Counseling given: Yes Caregiver/Support person: No Household members: spouse Housing: house Communication Needs: None Do you need help understanding health information?: Never Pets and animals: No Sexually active: No Do you think of yourself as: straight/heterosexual Current gender identity: decline to answer What is your relationship status?: How often do you talk on the phone with friends or family?: three or more times per week How often do you get together with friends or relatives?: decline to answer How often do you attend spiritism or lutheran services?: decline to answer Do you belong to any clubs or organized social groups?: no Panel score (0-1 are the most socially isolated patients): 2 What type of physical activity do you participate in: decline to answer Duration: decline to answer Frequency: decline to answer Danette/Spiritism: No preference Special danette needs: No Seatbelt use: sometimes Helmet use: Yes Helmet use: always Drive intox or ride w/intox piledriver carpenter: No Do you feel safe at home: Yes Do you feel safe in your relationship?: Yes Time Spent with Patient Time Spent with Patient: <45 minutes Time was spent: preparing to see the patient(eg.review tests), ordering medications,tests, procedures, referring, communicating with other health healthcare network consultant, indepentently interpreting results, counseling the patient and care coordination
--- NOTE | 2023-02-17 12:29 | CMDISCH_ITS ---
Date of service: 02/17/23 Time of Service: 12:44 LACE Index Scoring Tool Questions: Length of Stay (in days): 4 - 6 Was the patient admitted via the E.D.?: Yes Comorbidities: Chronic Pulmonary Disease E.D. Visits: 2 Answers: Total Score: 11 Risk of Readmission: High Risk Care Management Discharge Plan Reason for Hospitalization: Admitted for Pnemonia; negative CXR. Covid. Severe weakness. Discharge Plan: Miguel will return home with his , via private vehicle. He will have new orders for VNA RN (santillan and medications), PT, ELECTROMECHANICAL ASSEMBLY TECHNICIAN (CM notified [facility]) and follow up with community providers. Patient/Family Education Needs: Review discharge instructions, discuss Ask Me Three. Services Needed at Discharge: Home Health Care Services
--- NOTE | 2023-02-17 12:38 | PDOC.HHF2F ---
Home Health Referral Home Health Orders Clinical synopsis of why skilled professionals are needed: This 67-year-old male with a history of COPD presented with increasing dyspnea and hypoxemia found to have community-acquired pneumonia but also incidentally was found to be positive for COVID. Patient was treated with 5 days of Remdesivir along with 5 days of parenteral antibiotics including cefepime and azithromycin. Patient improved was weaned off oxygen. Physical therapy worked with the patient found him to be independent with use of a walker. Patient needs follow-up nursing to monitor his respiratory improvement and monitor his medication compliance. Patient also was found to have acute urinary retention required placement of a Young catheter. Patient was started on Flomax. Urology consultation was obtained with Dr. Carlos Olmstead. Home nursing's request to follow-up on Young catheter care until the Young is removed via Dr. Olmstead's office. Home physical therapy has been recommended by the inpatient physical therapist. Home PT is needed to improve his gait strength and balance and endurance. Medical diagnosis necessitation home health referral: Community-acquired pneumonia, COVID-19, acute urinary retention, COPD, generalized weakness secondary to acute illness Registered Nurse: Check all that apply Instruct on new or changed medication(s)/assess compliance: Ordered Instruct on, and maintenance of, urinary device: Ordered Assess for exacerbation of medical condition, instruct patient/caregivers on signs and symptoms to report for early detection: Ordered Other: Instruct patient and family on care of Young catheter Physical Therapist: Check all that apply Increase strength & endurance for safe mobility at home: Ordered To design/establish home maintenance program: Ordered Fall reduction therapy program for patient with history of frequent falls: Ordered Home safety evaluation and teaching/gait training including stair management (if applicable): Ordered Better Breathing Program: Ordered Transcription Coordinator: Assist with community resources: Ordered Home Bound Status Requires the aid of supportive device (check all that apply): Walker Patient has a condition such that leaving home is medically contraindicated (Describe): pneumonia and COVID-19 increase patient's risk of spread of illness to the community Describe why leaving home would require a considerable and taxing effort: Requires frequent rest periods Encounter Date and Reason: I certify that a FTF encounter for this patient was performed on February 17, 2023 and that such encounter was related to the primary reason the patient requires home health services. The encounter was conducted in the following manner: By me as the certifying physician, REPAIRER ART OBJECTS, PA or By an inpatient physician, REPAIRER ART OBJECTS or PA during an inpatient stay who communicated findings to me, Certification And Authentication I certify that I composed the above information based on my clinical judgment relating to this patient's medical condition and, if applicable, clinical findings communicated to me by the NPP or inpatient physician who performed the FTF encounter. Name of Provider that will be monitoring home health services: Maco Majano
[2023-02-18 14:30] LABS: Streptococcus Pneumoniae Ag, U Negative (Negative)
[2023-02-19 16:38] LABS: Mycoplasma Pneumoniae PCR Negative (Negative); Specimen source Sputum
== END 2023-02-17 13:23 | disposition home health service (06) | DRG 193 ==
LOC: ER 18:54 → MS 20:31
PROVIDERS: Internal Medicine; Admitting Provider General Practice; Emergency Provider Emergency Medicine; PCP Nurse Practitioner Family; Visit Provider General Practice
DX: J18.9 Pneumonia, unspecified organism (principal); U07.1 COVID-19; J44.0 Chronic obstructive pulmonary disease with (acute) lower respiratory infection; E87.1 Hypo-osmolality and hyponatremia; R53.1 Weakness; G40.409 Other generalized epilepsy and epileptic syndromes, not intractable, without status epilepticus; Z79.899 Other long term (current) drug therapy; R33.9 Retention of urine, unspecified; F17.210 Nicotine dependence, cigarettes, uncomplicated; R29.6 Repeated falls; R91.8 Other nonspecific abnormal finding of lung field; M54.50 Low back pain, unspecified; F10.21 Alcohol dependence, in remission; M17.11 Unilateral primary osteoarthritis, right knee; K21.9 Gastro-esophageal reflux disease without esophagitis; K22.2 Esophageal obstruction; Z86.73 Personal history of transient ischemic attack (TIA), and cerebral infarction without residual deficits; F32.A Depression, unspecified; I10 Essential (primary) hypertension; E83.42 Hypomagnesemia; E86.0 Dehydration; C61 Malignant neoplasm of prostate
CPT/HCPCS: 00123; 36415; 51702; 71275; 80048; 80053; 80076; 82306; 82805; 84145; 87449; 87637; 94640; 96365; 96366; 96367; 97110; 97161; 97530; 99221; 99285; J1650; 71045; 80184; 81003; 81015; 82728; 83735; 84295; 84484; 85025; 85379; 85610; 86140; 87070; 87205; 87581; 87899; 93970; 94664; 94667; 94668; 94760; 99222; 99232; 99233; 99239; J0248; J0456; J3490

== ENCOUNTER → 2023-02-14 08:03 | Outpatient (BNVA) | payer MEDICARE, SELFPAY | PROVIDERS: PCP Nurse Practitioner Family; Referring Provider Nurse Practitioner Family; Visit Provider Urology ==

== ENCOUNTER → 2023-02-19 10:09 | Outpatient (BNVA) | payer MEDICARE, SELFPAY | PROVIDERS: PCP Nurse Practitioner Family; Referring Provider Nurse Practitioner Family; Visit Provider Urology ==

== ENCOUNTER → 2023-04-04 01:41 | Outpatient (CLI) | payer MEDICARE, SELFPAY ==
--- NOTE | 2023-04-04 07:45 | DI.CT_ITS ---
Exam(s) CT CHEST WO EXAM: CT CHEST WO CLINICAL HISTORY: 3-6 month f/u,f/u lung nodules,r91.8. TECHNIQUE: Imaging protocol: Axial computed tomography images were obtained and coronal and sagittal reformatted images were created and reviewed. COMPARISON: CT CT CHEST PE CTA from 02/14/2023 FINDINGS: Tracheobronchial tree: Patent where visualized. Pulmonary parenchyma: Emphysematous changes are seen in the lungs. No architectural distortion. Ther e is a stable 4 mm nodule in the posterolateral aspect of the right upper lobe (series 3, image 297.) . There are no new pulmonary nodules. There has been near complete resolution of the infiltrate in the right upper lobe. No new infiltrates are seen. Mediastinum and Kathrin: No dominant adenopathy or fluid collection. The esophagus is unremarkable. Thyroid gland: Unremarkable. Pleura: No effusion or pneumothorax. Heart: The heart is not dilated. Coronary artery calcifications and/or stents are present. No perica rdial effusion. Aorta: Thoracic aorta non-dilated. Atherosclerosis is present. Upper abdomen: Stable right renal cyst. Lymph nodes: Within normal limits. Soft tissues: Unremarkable. Bones:Within normal limits for the patient's age. There again seen multiple united and nonunited rig ht rib fractures. There is an old L1 compression fracture deformity. IMPRESSION: 1. Stable right upper lobe pulmonary nodule. 2. Near complete resolution of the right upper lobe infiltrate. No new infiltrates are seen. RADIATION DOSE DELIVERED: 462.94mGy.cm Total DLP 462.94mGy.cm Total DLP DATA REPOSITORY: All CT scans at this facility are submitted to the National Radiology Data Registry (NRDR) Dose Index Registry (DIR) with the [employer] (ACR). RADIATION OPTIMIZATION: All CT scans at this facility use at least one of these dose optimization te chniques: automated exposure control; mA and/or kV adjustment per patient size (includes targeted exa ms where dose is matched to clinical indication); or iterative reconstruction.
== END ==
PROVIDERS: PCP Nurse Practitioner Family; Visit Provider Nurse Practitioner Family
DX: R91.8 Other nonspecific abnormal finding of lung field (principal)
CPT/HCPCS: 71250

== ENCOUNTER 2023-09-15 20:45 | Inpatient (IN) | payer MEDICARE, SELFPAY ==
[2023-09-15] VITALS (21 sets, daily range): BP systolic 136–168; BP diastolic 38–108; PULSE 75–96; RESP 15–31; TEMP 36.5; O2SAT 93–96
--- NOTE | 2023-09-15 20:45 | W.ED.GENAD ---
Discharge Plan Discharge Details Chief Complaint: GenMedical Primary Care Provider: Maco Altamirano ED Provider: Esteban Foster Home Meds and New Rx's Prescriptions: No Action omeprazole 20 mg capsule,delayed release(DR/EC) 20 mg PO DAILY Qty: 90 1RF sucralfate [Carafate] 1 gram tablet 1 g PO BID PRN (Reason: gerd) Qty: 180 4RF aspirin 81 mg tablet,delayed release (DR/EC) 81 mg PO BID Qty: 90 3RF vitamin B complex Capsule 1 cap PO .QOD Combivent Respimat 20-100 mcg/actuation mist 1 puff inhalation QID Qty: 4 11RF fluticasone propionate 100 mcg/actuation blister with device 1 inh inhalation Q12H Qty: 60 12RF magnesium oxide 400 mg (241.3 mg magnesium) tablet 400 mg PO DAILY Qty: 90 4RF ArmonAir Digihaler 113 mcg/actuation aero powdr breath act w/sensor 1 inh inhalation BID Qty: 1 6RF escitalopram oxalate [Lexapro] 10 mg tablet 10 mg PO DAILY Qty: 90 3RF levetiracetam [Keppra] 750 mg tablet 750 mg PO BID Qty: 180 3RF phenobarbital 64.8 mg tablet 259.2 mg PO HS Qty: 360 3RF Inhaler, Assist Devices [Pocket Chamber] 1 ea miscellaneous DIRECTED Qty: 0 0RF nystatin 100,000 unit/mL suspension 1 ml PO DAILY Patient Comments: TAKE FOUR MILLILITERS BY MOUTH FOUR TIMES A DAY FOR 7 DAYS; SWISH IN THE MOUTH AND RETAIN FOR LONG POSSIBLE (SEVERAL MINUTES) BEFORE S HPI General Date/Time Provider Initiated Documentation: 09/15/23 20:56. HPI Narrative: 67 year-old male presents to ED today by POV/ambulating with a chief complaint of difficulty swallowing, feeling weak and coughing- not eating well due to dysphagia. Onset of all this was after Covid-19 this winter, has been having trouble for weeks- has a swallow study scheduled here at [facility] tomorrow. Quality described as vocal changes, extreme difficulty swallowing, FB sensation in L throat, no radiation to fever, chest pain, vomiting, endorses throat pain, neck pain, denies active severe cough, endorses some shortness of breath and weakness. Severity is described as moderate to severe. Palliating factors include was given oral rinse for thrush. Provoking factors include all started with Covid-19 in the winter. Events leading up to the incident/Associated Symptoms: Patient states his father had some throat abnormality of a food pouch. Patient not anticoagulated. Related Data Home Medications Medication Instructions Recorded Confirmed vitamin B complex 1 cap PO .QOD 11/13/19 09/15/23 aspirin 81 mg tablet,delayed 81 mg PO BID #90 tabs 06/08/22 09/15/23 release sucralfate 1 gram tablet (Carafate) 1 g PO BID PRN gerd #180 tab-caps 06/08/22 09/15/23 Inhaler, Assist Devices [Pocket 1 ea miscellaneous DIRECTED ##0 02/17/23 09/15/23 Chamber] fluticasone propionate 100 1 inh inhalation Q12H #60 ea 04/04/23 09/15/23 mcg/actuation blister powder for inhalation ipratropium 20 mcg-albuterol 100 1 puff inhalation QID #4 grams 04/04/23 09/15/23 mcg/actuation mist for inhalation (Combivent Respimat) magnesium oxide 400 mg (241.3 mg 400 mg PO DAILY #90 tabs 05/24/23 09/15/23 magnesium) tablet fluticasone propionate 113 1 inh inhalation BID #1 ea 06/18/23 09/15/23 mcg/actuation breath activated pwdr inhal,sensor (ArmonAir Digihaler) escitalopram oxalate 10 mg tablet 10 mg PO DAILY #90 tab-caps 07/16/23 09/15/23 (Lexapro) levetiracetam 750 mg tablet 750 mg PO BID #180 tab-caps 07/30/23 09/15/23 (Keppra) phenobarbital 64.8 mg tablet 259.2 mg (4 x 64.8 mg) PO HS #360 07/30/23 09/15/23 tab-caps omeprazole 20 mg capsule,delayed 20 mg PO DAILY #90 caps 08/27/23 09/15/23 release nystatin 100,000 unit/mL oral 1 ml PO DAILY 09/15/23 09/15/23 suspension Previous Rx's Medication Instructions Recorded aspirin 81 mg tablet,delayed 81 mg PO BID #90 tabs 06/08/22 release sucralfate 1 gram tablet (Carafate) 1 g PO BID PRN gerd #180 tab-caps 06/08/22 Inhaler, Assist Devices [Pocket 1 ea miscellaneous DIRECTED ##0 02/17/23 Chamber] fluticasone propionate 100 1 inh inhalation Q12H #60 ea 04/04/23 mcg/actuation blister powder for inhalation ipratropium 20 mcg-albuterol 100 1 puff inhalation QID #4 grams 04/04/23 mcg/actuation mist for inhalation (Combivent Respimat) magnesium oxide 400 mg (241.3 mg 400 mg PO DAILY #90 tabs 05/24/23 magnesium) tablet fluticasone propionate 113 1 inh inhalation BID #1 ea 06/18/23 mcg/actuation breath activated pwdr inhal,sensor (ArmonAir Digihaler) escitalopram oxalate 10 mg tablet 10 mg PO DAILY #90 tab-caps 07/16/23 (Lexapro) levetiracetam 750 mg tablet 750 mg PO BID #180 tab-caps 07/30/23 (Keppra) phenobarbital 64.8 mg tablet 259.2 mg (4 x 64.8 mg) PO HS #360 07/30/23 tab-caps omeprazole 20 mg capsule,delayed 20 mg PO DAILY #90 caps 08/27/23 release Allergies Allergy/AdvReac Type Severity Reaction Status Date / Time zonisamide Allergy Unknown unknown Verified 09/15/23 20:56 tamsulosin [From Flomax] AdvReac Severe Swelling/Ed Verified 09/15/23 20:56 sherlyn sertraline AdvReac Intermediate unknown Verified 09/15/23 20:56 cefuroxime AdvReac Unknown unknown Verified 09/15/23 20:56 guaifenesin AdvReac Unknown unknown Verified 09/15/23 20:56 General LAMONT: 3 Review of Systems All systems reviewed & are unremarkable except as noted in HPI and below Exam Narrative Exam Narrative: GENERAL APPEARANCE: Frail, non-toxic, awake and alert, atraumatic, no acute distress. SKIN: Warm, pink, dry, intact, without rashes/lesions/ulcerations. HEAD: Normocephalic, atraumatic, normal hair distribution for gender/age. EYES: Pupils PERRLA, EOMs intact without nystagmus, normal conjunctiva, no exudates on lids/lashes. ENT: Nares patent, no circumoral cyanosis, no facial swelling, shaye present on tongue, uvula midline, muffled vocal changes, excessive phlegm, managing secretions NECK: Supple, trachea midline, painless cervical ROM, no nuchal rigidity, no neck swelling. LUNGS/CHEST: Lungs - rhonchorous diffusely, expiratory wheezes consistent with COPD, non-labored respirations, normal A/P diameter, symmetrical expansion, no chest wall deformity HEART (CV/PV): Regular rate and rhythm without murmur, no peripheral edema, no JVD. ABDOMEN: Soft, non-distended, no guarding, no tenderness. MSK: Normal ROM, no swelling/deformity to bilateral UEs or LEs, moving all extremities without weakness, no cyanosis, spine midline without tenderness, normal curvature. NEURO: Mental Status AAOx4 - alert to person, place, time, events No facial droop, no forehead involvement. Motor: No focal weakness - strength 5/5 in bilateral UEs and LEs, proximal and distal, symmetric. Sensory: sensation intact to light touch globally. Gait normal: patient ambulated without ataxia into ED room. PSYCH: dysthymic, cooperative, pleasant, appropriate speech Medical Decision Making This dictation utilizes [id number] dictation software and may contain unedited grammatical errors. 67 year-old male presents to ED today by POV/ambulating with a chief complaint of difficulty swallowing, feeling weak and coughing- not eating well due to dysphagia. Onset of all this was after Covid-19 this winter, has been having trouble for weeks- has a swallow study scheduled here at [facility] tomorrow. Quality described as vocal changes, extreme difficulty swallowing, FB sensation in L throat, no radiation to fever, chest pain, vomiting, endorses throat pain, neck pain, denies active severe cough, endorses some shortness of breath and weakness. Severity is described as moderate to severe. Palliating factors include was given oral rinse for thrush. Provoking factors include all started with Covid-19 in the winter. Events leading up to the incident/Associated Symptoms: Patient states his father had some throat abnormality of a food pouch. Patients' medical history: History of stroke, seizure disorder, hypertension, COPD, history of esophageal repair 2004, adult failure to thrive syndrome, hyponatremia, history of alcoholism. Family and social history: possible FHx of dysphagia, question if he is referring to Zenker's diverticulum. Pertinent exam findings / vital signs include muffled vocal changes, the tongue is crusted with Shaye consistent with his active thrush, lungs rhonchorous, nontoxic vitals, benign abdomen, neuro baseline. Differential / pathologies of concern include Zenker's diverticulum, dysphagia, esophageal motility disorder, aspiration pneumonia, fungal throat infection, MOTOCROSS RACER or RPA, throat CA. Diagnostic studies of: -CBC, CMP, lipase, lactate, procalcitonin, CT neck with contrast, CT chest with contrast. -CBC shows no leukocytosis, shows anemia of 10.5-which is baseline -Lactate neg, Procal negative- do not suspect sepsis -CMP shows hyponatremia of 126, will start maintenance fluids, no VICENTE, low albumin -Lipase negative Interventions of: -IVF maintenance fluids 150mL/hr. ED Course/Assessment/Plan: 67-year-old male presented to the ED for weakness, he has been dealing with extreme dysphagia and vocal changes and an active thrush infection for a couple weeks, allegedly has a swallow study scheduled for tomorrow here at [facility], states he has not been eating much and feels very weak, question aspiration pneumonia with rhonchorous lungs, muffled vocal changes warranted rule out for MOTOCROSS RACER or RPA. Patient having severe difficulty with PO challenge with water, coughs it up immediately. Patients airway shows significant narrowing on CT- will discuss with hospitalist for admission for swallow study and likely ENT consult with Dr. Lee Peters. Discussed with Hospitalist Dr. Howard @ [id number]- would be happy to admit with reassuring CT read, possible ENT consult to ensure no need for transfer from in-patient admit. Discussed CT findings with vRAD, there is a mass in the sella- there is also question of squamous cell carcinoma of the throat vs soft tissue/fungal infection- more likely malignancy- may need MRI- discussed with Dr. Palomares, would like [facility] opinon prior to admission here. -Patient also noted to be aspirating - giving IV Levofloxacin 750mg due to allergies, and IV Tylenol/Toradol/Dexamethasone -Paged [facility] ENT @ 0260, having images pushed. Patient signed out to Dr. Hawk with likely admit here and MRI Brain/Neck w/wo qAM and ENT consult for Biopsy unless [facility] has acute concerns for transfer. Patient wishes to be DNR/DNI. Diagnosis discussed with patient and family. Findings not consistent with hypoxic respiratory failure, sepsis. Disposition of Hypopharyngeal Mass, Sella Mass, Dysphagia. Patient verbalized understanding of the plan and return to ED criteria and engaged in shared decision making. Medical Records Medical records reviewed: Yes I reviewed the patient's medical records. Imaging Data Radiologic Study: Attestation: I personally reviewed and interpreted this imaging study as follows: Imaging: CT Scan Radiologist's impression: Exam: CT Neck With Contrast Exam date and time: 09/15/2023 10:18 PM Age: 67 years old Clinical indication: Dysphagia / difficulty swallowing; Patient HX: Dysphagia, known fungal infection of throat, ? aspiration TECHNIQUE: Imaging protocol: Computed tomography of the neck with contrast. 3D rendering (Not supervised by radiologist): MIP and/or 3D reconstructed images were created by the technologist. Total images: 2847 Radiation optimization: All CT scans at this facility use at least one of these dose optimization techniques: automated exposure control; mA and/or kV adjustment per patient size (includes targeted exams where dose is matched to clinical indication); or iterative reconstruction. Contrast material: OMNIPAQUE 350; Contrast volume: 100 ml; Contrast route: INTRAVENOUS (IV); COMPARISON: CT CHEST WO 04/04/2023 1:02 PM FINDINGS: Brain: Hyperdense sellar/suprasellar well-circumscribed mass measuring 1.6 x 1.8 cm. Salivary glands: Parotid and submandibular glands are unremarkable. Large soft tissue density mass involving the epiglottis, right aryepiglottic fold, effacing the right piriform sinus and involving the right false cord. Lesion extends over length of about 8 cm and has a maximal AP dimension 3 cm. Small bilateral vascular space nodes.. Circumferential hypodense wall thickening of the esophagus consistent with reflux esophagitis. IMPRESSION: 1. 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 2. Sellar/suprasellar mass differential including an aneurysm or macroadenoma. Follow-up brain MRI recommended. 3. THIS REPORT CONTAINS FINDINGS THAT MAY BE CRITICAL TO PATIENT CARE. The findings were verbally communicated via telephone conference with ESTEBAN FOSTER at 11:34 PM EDT on 09/15/2023. The findings were acknowledged and understood. PROCEDURE INFORMATION: Exam: CT Chest With Contrast; Diagnostic Exam date and time: 09/15/2023 10:18 PM Age: 67 years old Clinical indication: Dysphagia / difficulty swallowing; Patient HX: Dysphagia, known fungal infection of throat, ? aspiration TECHNIQUE: Imaging protocol: Diagnostic computed tomography of the chest with contrast. 3D rendering (Not supervised by radiologist): MIP and/or 3D reconstructed images were created by the technologist. Radiation optimization: All CT scans at this facility use at least one of these dose optimization techniques: automated exposure control; mA and/or kV adjustment per patient size (includes targeted exams where dose is matched to clinical indication); or iterative reconstruction. Contrast material: OMNIPAQUE 350; Contrast volume: 100 ml; Contrast route: INTRAVENOUS (IV); COMPARISON: CT CHEST WO 04/04/2023 1:02 PM FINDINGS: Trachea: Secretions within the trachea. Lungs: Apical paraseptal emphysema. Centrilobular nodules involving basal segments of the left lower lobe and minimally superior segment right lower lobe. No consolidation. Pleural spaces: No pleural effusion or pneumothorax. Heart: No significant finding. Coronary arteries: No coronary calcification. Lymph nodes: No mediastinal, hilar or axillary adenopathy. Vasculature: No filling defects central pulmonary arterial tree. No aortic aneurysm. Liver: Hepatic steatosis. Bones/joints: Multiple old right rib fractures. Old L1 compression fracture. Soft tissues: No significant finding. IMPRESSION: Consistent with aspiration resulting in probable infectious bronchiolitis. Dictated and Authenticated by: Gokul Hayes MD. Lab Data Lab results reviewed: Yes I reviewed the patient's lab results. Labs: Laboratory Tests Range/Units 09/15/23 21:07 WBC (4.4-10.8) 10^3/uL 10.50 RBC (4.36-5.78) 10^6/uL 3.35 L Hgb (13.5-17.5) g/dL 10.5 L Hct (40.0-50.0) % 30.3 L MCV (80-95) fL 90 MCH (27.0-33.0) pg 31.3 MCHC (32.0-36.0) % 34.7 RDW (11.8-14.1) % 11.9 Plt Count (130-400) 10^3/uL 356 MPV (8.0-11.0) fL 9.5 Immature Gran % % 0.3 Neutrophils % % 82.5 Lymphocytes % % 10.0 Monocytes % % 7.1 Eosinophils % % 0.0 Basophils % % 0.1 Nucleated RBC % (0.0-0.3) % 0.0 Absolute Neutrophils (1.2-6.7) 10^3/uL 8.66 H Absolute Lymphocytes (1.2-3.4) 10^3/uL 1.05 L Absolute Monocytes (0.1-0.8) 10^3/uL 0.75 Absolute Eosinophils (0.0-0.7) 10^3/uL 0.00 Absolute Basophils (0.0-0.2) 10^3/uL 0.01 VBG Lactate (0.6-1.4) mmol/L 1.2 Sodium (136-145) mmol/L 126 L Potassium (3.5-5.1) mmol/L 4.4 Chloride (98-107) mmol/L 89 L Carbon Dioxide (21.0-32.0) mmol/L 30.8 Anion Gap (3-11) mmol/L 6.2 BUN (7-18) mg/dL 2 L Creatinine (0.70-1.30) mg/dL 0.7 Est GFR (CKD-EPI 2020) (mL/min/1.73m2) 101.62 Glucose (74-106) mg/dL 106 Calcium (8.5-10.1) mg/dL 8.5 Total Bilirubin (0.2-1.0) mg/dL 0.20 AST (15-37) U/L 16 ALT (16-63) U/L 17 Alkaline Phosphatase (46-116) U/L 128 H Total Protein (6.4-8.2) g/dL 7.5 Albumin (3.4-5.0) g/dL 2.7 L Lipase (16-77) U/L 36 Procalcitonin ng/mL < 0.1 Quality:SDOH Health Related Social Needs: No Data to Display PFSH All Active Problems (Updated 08/27/23 @ 14:05 by Maco Majano NP) Dysphagia (Acute) Lower urinary tract symptoms (LUTS) (Acute) Urinary retention (Acute) Pneumonia (Acute) COPD (chronic obstructive pulmonary disease) (Chronic) Decreased vision of right eye (Acute) Adult failure to thrive syndrome (Acute) Chronic anterior uveitis of right eye (Acute) Frequent falls (Acute) Lung nodules (Acute) Hyponatremia (Chronic) 12/2020-133 History of knee surgery (Acute) Smoker (Chronic) 100 plus pack years smoking Low back pain (Acute) History of alcoholism (Acute) Generalized osteoarthrosis (Acute) right knee Generalized convulsive epilepsy (Acute) Gastroesophageal reflux disease (Acute) Benign esophageal stricture (Acute) dilated 07/13 Medical History COVID Pneumonia 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 Father No problems noted. Social History Smoking/Tobacco Use Status: Current every day Tobacco Type: cigarettes Quit status: considering quitting Second Hand Exposure: Yes Smoking risk assessment performed?: Yes Alcohol Intake: former Drug use: Never Substance use type: does not use Counseling given: Yes Caregiver/Support person: No Household members: spouse Housing: house Communication Needs: None Do you need help understanding health information?: Never Pets and animals: No Sexually active: No Do you think of yourself as: straight/heterosexual Current gender identity: decline to answer What is your relationship status?: How often do you talk on the phone with friends or family?: three or more times per week How often do you get together with friends or relatives?: decline to answer How often do you attend religious or latter-day services?: decline to answer Do you belong to any clubs or organized social groups?: no Panel score (0-1 are the most socially isolated patients): 2 What type of physical activity do you participate in: decline to answer Duration: decline to answer Frequency: decline to answer Danette/Mormon: No preference Special danette needs: No Seatbelt use: sometimes Helmet use: Yes Helmet use: always Drive intox or ride w/intox truck driver supervisor: No Do you feel safe at home: Yes Do you feel safe in your relationship?: Yes
--- NOTE | 2023-09-15 20:56 | DI.CT_ITS ---
Exam(s) CT NECK CHEST W EXAM: CT NECK CHEST W CLINICAL HISTORY: dysphagia, known fungal infection of throat TECHNIQUE: Imaging Protocol: Axial computed tomography images with coronal and sagittal reformatted images were created and reviewed CONTRAST MATERIAL: Intravenous: Omnipaque 350 Contrast volume:100 ml Oral: / no COMPARISON: CT CT CHEST WO from 04/04/2023 FINDINGS: Neck: Exam is limited by motion. Parotids/submandibular/thyroid gland: Normal. Lymphadenopathy: Small lymph nodes noted in the bilateral vascular space.. Carotids/Jugular: Calcification at the common carotid bulbs. No significant stenosis. Vertebral ruben lauro appear patent. Soft tissues: The floor the mouth is unremarkable. Signal motion in the region of the vocal cords an d epiglottis. Marked thickening of the epiglottis. Apparent mass on the right extending from the leve l of the false cords through the level of the epiglottis. Rough measurements are 3 by 3 x 5 cm. Bones: No fracture. No lytic or blastic lesions. Scoliosis and degenerative changes. Visualized portions of the brain: Mildly enhancing mass in the sella. Some expansion of the sella. Chest: Tracheobronchial tree: Patent where visualized. Mediastinum and Kathrin: No dominant adenopathy or fluid collection. Esophageal thickening could indica te esophagitis. Pulmonary parenchyma: Nodular infiltrate seen at left lower lung base. Minimal nodular infiltrate se en in superior segment right lower lobe. Emphysematous changes at apices. Stable small nodules in rig ht upper lobe.. Pleura: No effusion or pneumothorax. Heart/Aorta: Thoracic aorta non-dilated. The heart is not dilated. Pulmonary arteries: No evidence of emboli. Bones: Multiple old rib fractures again noted. Old L1 compression fractures unchanged. No acute fra cture. No lytic or blastic lesions. Soft tissues: Rounded density in the posterior subcutaneous fat likely represents a sebaceous cyst. Visualized portions of the upper abdomen show no acute findings. IMPRESSION: Exam limited by motion however the findings are suspicious for a right-sided neck mass involving the epiglottis and extending down to the level of the vocal cords. Mild diffuse esophageal wall thickening suspicious for esophagitis. Findings consistent with aspiration pneumonitis at left lower lobe and small infiltrate in superior s egment right lower lobe. 2 centimeter mass in the sella. It may represent a pituitary adenoma. MRI of the brain with contrast recommended. RADIATION DOSE DELIVERED: 792.12mGy.cm Total DLP DATA REPOSITORY: All CT scans at this facility are submitted to the National Radiology Data Registry (NRDR) Dose Index Registry (DIR) with the [employer] (ACR). RADIATION OPTIMIZATION: All CT scans at this facility use at least one of these dose optimization te chniques: automated exposure control; mA and/or kV adjustment per patient size (includes targeted exa ms where dose is matched to clinical indication); or iterative reconstruction.
[2023-09-15 21:20] LABS: Lactate 1.2 mmol/L (0.6-1.4)
[2023-09-15 21:26] LABS: Abs Immature Grans 0.03 10^3/uL (0.0-0.06); Absolute Basophil Count 0.01 10^3/uL (0.0-0.2); Absolute Lymphocyte Count 1.05 10^3/uL (1.2-3.4); Absolute Monocyte Count 0.75 10^3/uL (0.1-0.8); Absolute Neutrophil Count 8.66 10^3/uL (1.2-6.7); Basophils % 0.1 %; HCT 30.3 % (40.0-50.0); HGB 10.5 g/dL (13.5-17.5); Immature Grans % 0.3 %; MCH 31.3 pg (27.0-33.0); MCHC 34.7 % (32.0-36.0); MCV 90 fL (80-95); MPV 9.5 fL (8.0-11.0); Monocytes % 7.1 %; Neutrophils % 82.5 %; Platelet Count 356 10^3/uL (130-400); RBC 3.35 10^6/uL (4.36-5.78); RDW 11.9 % (11.8-14.1); RDW-SD 39.7 fL
[2023-09-15 21:35] LABS: ALT 17 U/L (16-63); AST 16 U/L (15-37); Albumin 2.7 g/dL (3.4-5.0); Alkaline Phosphatase 128 U/L (46-116); Anion Gap 6.2 mmol/L (3-11); BUN 2 mg/dL (7-18); CO2 30.8 mmol/L (21.0-32.0); CREATININE 0.7 mg/dL (0.70-1.30); Calcium 8.5 mg/dL (8.5-10.1); Chloride 89 mmol/L (98-107); Estimated GFR 101.62 (mL/min/1.73m2); Glucose 106 mg/dL (74-106); Lipase 36 U/L (16-77); Potassium 4.4 mmol/L (3.5-5.1); Sodium 126 mmol/L (136-145); Total Protein 7.5 g/dL (6.4-8.2)
[2023-09-15] MEDS: Normal Saline 1,000 ML 150 ML IV (22:00)
[2023-09-15] MEDS: Omnipaque 350 MG/ML 100 ML BTL IJ (22:29)
[2023-09-15] MEDS: Normal Saline Flush 10 ML SYR IVP (22:30)
[2023-09-15] MEDS: Normal Saline - Diluent 50 ML VIAL IJ (22:30)
--- NOTE | 2023-09-15 22:57 | NUR.NOTE ---
Pt unable to swallow water, coughs and spits back up, pt unwilling to try to eat anything thicker, FPJ
[2023-09-15 23:06] LABS: Procalcitonin < 0.1 ng/mL
--- NOTE | 2023-09-15 23:37 | DI.VRAD_ITS ---
PROCEDURE INFORMATION: Exam: CT Neck With Contrast Exam date and time: 09/15/2023 10:18 PM Age: 67 years old Clinical indication: Dysphagia / difficulty swallowing; Patient HX: Dysphagia, known fungal infection of throat, ? aspiration TECHNIQUE: Imaging protocol: Computed tomography of the neck with contrast. 3D rendering (Not supervised by radiologist): MIP and/or 3D reconstructed images were created by the technologist. Total images: [id number] Radiation optimization: All CT scans at this facility use at least one of these dose optimization techniques: automated exposure control; mA and/or kV adjustment per patient size (includes targeted exams where dose is matched to clinical indication); or iterative reconstruction. Contrast material: OMNIPAQUE 350; Contrast volume: 100 ml; Contrast route: INTRAVENOUS (IV); COMPARISON: CT CHEST WO 04/04/2023 1:02 PM FINDINGS: Brain: Hyperdense sellar/suprasellar well-circumscribed mass measuring 1.6 x 1.8 cm. Salivary glands: Parotid and submandibular glands are unremarkable. Large soft tissue density mass involving the epiglottis, right aryepiglottic fold, effacing the right piriform sinus and involving the right false cord. Lesion extends over length of about 8 cm and has a maximal AP dimension 3 cm. Small bilateral vascular space nodes.. Circumferential hypodense wall thickening of the esophagus consistent with reflux esophagitis. IMPRESSION: 1. 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 2. Sellar/suprasellar mass differential including an aneurysm or macroadenoma. Follow-up brain MRI recommended. 3. THIS REPORT CONTAINS FINDINGS THAT MAY BE CRITICAL TO PATIENT CARE. The findings were verbally communicated via telephone conference with CHARLEEN FOSTER at 11:34 PM EDT on 09/15/2023. The findings were acknowledged and understood. PROCEDURE INFORMATION: Exam: CT Chest With Contrast; Diagnostic Exam date and time: 09/15/2023 10:18 PM Age: 67 years old Clinical indication: Dysphagia / difficulty swallowing; Patient HX: Dysphagia, known fungal infection of throat, ? aspiration TECHNIQUE: Imaging protocol: Diagnostic computed tomography of the chest with contrast. 3D rendering (Not supervised by radiologist): MIP and/or 3D reconstructed images were created by the technologist. Radiation optimization: All CT scans at this facility use at least one of these dose optimization techniques: automated exposure control; mA and/or kV adjustment per patient size (includes targeted exams where dose is matched to clinical indication); or iterative reconstruction. Contrast material: OMNIPAQUE 350; Contrast volume: 100 ml; Contrast route: INTRAVENOUS (IV); COMPARISON: CT CHEST WO 04/04/2023 1:02 PM FINDINGS: Trachea: Secretions within the trachea. Lungs: Apical paraseptal emphysema. Centrilobular nodules involving basal segments of the left lower lobe and minimally superior segment right lower lobe. No consolidation. Pleural spaces: No pleural effusion or pneumothorax. Heart: No significant finding. Coronary arteries: No coronary calcification. Lymph nodes: No mediastinal, hilar or axillary adenopathy. Vasculature: No filling defects central pulmonary arterial tree. No aortic aneurysm. Liver: Hepatic steatosis. Bones/joints: Multiple old right rib fractures. Old L1 compression fracture. Soft tissues: No significant finding. IMPRESSION: Consistent with aspiration resulting in probable infectious bronchiolitis. Dictated and Authenticated by: Gokul Hayes MD. Ordering:TOÑA Orellana MD
[2023-09-16] VITALS (29 sets, daily range): BP systolic 107–146; BP diastolic 47–74; PULSE 63–95; RESP 16–31; TEMP 36.3–37.1; O2SAT 90–96; BMI 23.3
[2023-09-16] MEDS: ACETAMINOPHEN 1,000 MG/100 ML BTL 400 MG IVPB
--- NOTE | 2023-09-16 | DI.RAD_ITS ---
Exam(s) RF MODIFIED SPEECH BA SWALLOW TECHNIQUE: Modified barium swallow was performed in conjunction with speech pathology. CONTRAST MATERIAL: Multiple consistencies of oral barium contrast were administered. COMPARISON: No exams were available for comparison FINDINGS: Note that this is not a dedicated esophagram, distal esophagus not evaluated. Thickening of the epiglottis. Severe aspiration occurred with all consistencies administered. Speech pathology report to follow. IMPRESSION: Aspiration with all consistencies. RADIATION DOSE DELIVERED: cheryl Ayala=2.9 mGy
[2023-09-16] MEDS: levoFLOXacin 750 MG/150 ML BAG 100 MG IVPB (00:15)
[2023-09-16] MEDS: Dexamethasone 10 MG/ML VIAL IVP (00:17)
[2023-09-16] MEDS: Ketorolac 15 MG/ML VIAL IVP (00:17)
--- NOTE | 2023-09-16 02:08 | HPE_ITS ---
Date of service: 09/16/23 Time of Service: 02:08 Assessment and Plan Assessment and plan (1) Laryngeal mass: Status: Acute Assessment and plan: He understands this is likely cancer. ENT consult to consider biopsy. See below (2) Dysphagia: Status: Acute Assessment and plan: With resultant weight loss and aspiration. He would like to try to take po, speech consult placed. We discussed possible need for g-tube due to the mass in his throat, wait for swallow evaluation and additional discussion before consulting general surgery. Qualifiers: Dysphagia type: pharyngoesophageal phase Qualified Code(s): R13.14 - Dysphagia, pharyngoesophageal phase (3) Aspiration pneumonitis: Status: Acute Assessment and plan: He got a dose of levofloxacin for aspiration pneumonia, but CT just showing bronchiolitis and symptoms near baseline this point. I will not continue antibiotics. (4) COPD (chronic obstructive pulmonary disease): Status: Chronic Assessment and plan: Continue bronchodilators. Fluticasone may be reconsidered as apparently he was getting thrush and typically LAMA or LAMA/LABA preferred. Qualifiers: COPD type: unspecified COPD Qualified Code(s): J44.9 - Chronic obstructive pulmonary disease, unspecified (5) Hyponatremia: Status: Chronic Assessment and plan: chronic. He is getting NS now, which is appropriate as he appeared dry on presentation. Follow. (6) Smoker: Status: Chronic Assessment and plan: [facility] heavy smoker, contemplative. (7) Gastroesophageal reflux disease: Status: Acute Assessment and plan: Give PPI IV for now until able to take oral (8) Lower urinary tract symptoms (LUTS): Status: Acute Assessment and plan: monitor for retention. (9) Seizure disorder: Assessment and plan: Give seizure meds IV until it is safe to resume orals or he has g-tube. He did get his phenobarbitol 09/14, got keppra in ED. (10) Stroke: Assessment and plan: In 1995 complicating brain surgery. He is maintained on ASA. Resume when taking po. Qualifiers: CVA mechanism: thrombosis Laterality of affected vessel: left (11) Anemia: Status: Chronic Assessment and plan: mild, normocytic, in the setting of weight loss from dysphagia, laryngeal mass. No known bleeding. 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 Will need MRI for staging of likely squamous cancer (13) Goals of care, counseling/discussion: Status: Acute Assessment and plan: He isn't sure about code status now. He has seen family members suffer with cancer treatment. He does want to know his options. Palliative care consult placed. History of Present Illness History of Present Illness Chief Complaint: can't swallow, weak Narrative: 67 yo smoker with history of COPD, chronic hyponatremia, seizure disorder complicating previous brain abscess who presents with progressing dysphagia and weakness over the past 6 weeks. Dyphagia is to solids and fluids, progressively worsening. He states he can chew up a sandwich, swallow it, and the chewed food will come back up through his nose. He has been able to keep taking his medications including his seizure medications as some fluid did seem to get through, but he hasn't been able to eat food for a week. He denies abdominal or throat pain. He has noticed his voice becoming more hoarse and muffled about 3- 4 weeks ago. He finally came into the hospital because he felt increasing weak generally. He states his shortness of breath is about the same as always, but he does have more sputum. He denies fever. He denies neck or abdominal pain or ear pain. He thinks he has lost 10-20 lbs, this on top of additional weight he lost when he was sick with COVID and pneumonia in February 2023. He had one visit to PCP Maco Majano 08/26 in which he attributed his symptoms to thrush. Thrush was treated but dysphagia was noted and swallow evaluation ordered, which is still pending. Review of Systems All systems reviewed & are unremarkable except as noted in HPI and below Constitutional Constitutional: Denies fever(s), Denies headache(s), Reports lethargy, Reports malaise and Reports weight loss Eyes Eyes: Denies change in vision (has cataracts, right has had operation and uveiitis, nothing acute) ENT Ears, Nose, Mouth, and Throat: Denies headache(s) Cardiovascular Cardiovascular: Denies chest pain Respiratory Respiratory: Reports cough and Denies hemoptysis Musculoskeletal Musculoskeletal: Denies numbness Neurologic Neurologic: Denies confusion, Denies headache(s), Denies localized weakness, Denies memory loss and Denies numbness Psychiatric Psychiatric: Denies confusion and Denies memory loss PFSH All Active Problems (Updated 09/16/23 @ 08:32 by Bandar Palomares) Suprasellar mass (Acute) Anemia (Chronic) Goals of care, counseling/discussion (Acute) Aspiration pneumonitis (Acute) Laryngeal mass (Acute) Dysphagia (Acute) Lower urinary tract symptoms (LUTS) (Acute) Urinary retention (Acute) Pneumonia (Acute) COPD (chronic obstructive pulmonary disease) (Chronic) Decreased vision of right eye (Acute) Adult failure to thrive syndrome (Acute) Chronic anterior uveitis of right eye (Acute) Frequent falls (Acute) Lung nodules (Acute) Hyponatremia (Chronic) 12/2020- History of knee surgery (Acute) Smoker (Chronic) 100 plus pack years smoking Low back pain (Acute) History of alcoholism (Acute) Generalized osteoarthrosis (Acute) right knee Generalized convulsive epilepsy (Acute) Gastroesophageal reflux disease (Acute) Benign esophageal stricture (Acute) dilated 07/13 Medical History COVID Pneumonia 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 Father No problems noted. Social History (Updated 09/16/23 @ 02:32 by Bandar Palomares) Smoking/Tobacco Use Status: Current every day Tobacco Type: cigarettes Quit status: considering quitting Second Hand Exposure: Yes Smoking risk assessment performed?: Yes Alcohol Intake: former Drug use: Never Substance use type: does not use Counseling given: Yes Caregiver/Support person: No Household members: spouse Housing: other Communication Needs: None Do you need help understanding health information?: Never Pets and animals: No Sexually active: No Do you think of yourself as: straight/heterosexual Current gender identity: decline to answer What is your relationship status?: How often do you talk on the phone with friends or family?: three or more times per week How often do you get together with friends or relatives?: decline to answer How often do you attend episcopal or yazdanism services?: decline to answer Do you belong to any clubs or organized social groups?: no Panel score (0-1 are the most socially isolated patients): 2 What type of physical activity do you participate in: decline to answer Duration: decline to answer Frequency: decline to answer Danette/Mormonism: No preference Special danette needs: No Seatbelt use: sometimes Helmet use: Yes Helmet use: always Drive intox or ride w/intox tow driver: No Do you feel safe at home: Yes Do you feel safe in your relationship?: Yes Additional Social history: Lives with Denice in [place]. Disabled since brain abscess/CVA in 1995. Meds Allergies and Home Medications Allergies Allergy/AdvReac Type Severity Reaction Status Date / Time zonisamide Allergy Unknown unknown Verified 09/15/23 20:56 tamsulosin [From Flomax] AdvReac Severe Swelling/Ed Verified 09/15/23 20:56 sherlyn sertraline AdvReac Intermediate unknown Verified 09/15/23 20:56 cefuroxime AdvReac Unknown unknown Verified 09/15/23 20:56 guaifenesin AdvReac Unknown unknown Verified 09/15/23 20:56 Home Medications Medication Instructions Recorded Confirmed Type vitamin B complex 1 cap PO .QOD 11/13/19 09/15/23 History aspirin 81 mg tablet,delayed 81 mg PO BID #90 tabs 06/08/22 09/15/23 Rx release sucralfate 1 gram tablet (Carafate) 1 g PO BID PRN gerd #180 tab-caps 06/08/22 09/15/23 Rx Inhaler, Assist Devices [Pocket 1 ea miscellaneous DIRECTED ##0 02/17/23 09/15/23 Rx Chamber] fluticasone propionate 100 1 inh inhalation Q12H #60 ea 04/04/23 09/15/23 Rx mcg/actuation blister powder for inhalation ipratropium 20 mcg-albuterol 100 1 puff inhalation QID #4 grams 04/04/23 09/15/23 Rx mcg/actuation mist for inhalation (Combivent Respimat) magnesium oxide 400 mg (241.3 mg 400 mg PO DAILY #90 tabs 05/24/23 09/15/23 Rx magnesium) tablet fluticasone propionate 113 1 inh inhalation BID #1 ea 06/18/23 09/15/23 Rx mcg/actuation breath activated pwdr inhal,sensor ([employer] Digihaler) escitalopram oxalate 10 mg tablet 10 mg PO DAILY #90 tab-caps 07/16/23 09/15/23 Rx (Lexapro) levetiracetam 750 mg tablet 750 mg PO BID #180 tab-caps 07/30/23 09/15/23 Rx (Keppra) phenobarbital 64.8 mg tablet 259.2 mg (4 x 64.8 mg) PO HS #360 07/30/23 09/15/23 Rx tab-caps omeprazole 20 mg capsule,delayed 20 mg PO DAILY #90 caps 08/27/23 09/15/23 Rx release nystatin 100,000 unit/mL oral 1 ml PO DAILY 09/15/23 09/15/23 History suspension Exam Narrative Exam Narrative: GEN: Alert and oriented, tired but non-toxic appearing, pleasant and cooperative, gives linear history. No acute distress at rest. HEENT: Head atraumatic, old left craniotomy scar. Conjunctiva clear, no icterus. Right pupil not reactive (old since surgery), left reactive. EOMI. no rhinorrhea. MM mildly dry, no masses/lesions visible. Neck is supple with non-tender anterior cervical lymphadenopathy, trachea midline LUNGS: Moving air throughout with some diffuse expiratory wheezes, no rales, normal effort CV: RRR with no murmurs, gallops, or rubs. ABD: +BS, soft, NT/ND EXT: no cyanosis, clubbing, or edema MSK: No joint redness or swelling NEURO: CN 2-12 grossly intact x right eye and hoarse voice. Normal movement of 4 extremities with subtle weakness right hand vs left (chronic per patient). Muffled but intelligible speech, normal coordination, no tremor SKIN: No rashes or open wounds. PSYCH: normal mood and affect, normal thought process Results Labs 09/15/23 21:07 09/16/23 05:50 Labs: Laboratory Results - last 24 hr 09/15/23 21:07 WBC 10.50 RBC 3.35 L Hgb 10.5 L Hct 30.3 L MCV 90 MCH 31.3 MCHC 34.7 RDW 11.9 Plt Count 356 MPV 9.5 Immature Gran % 0.3 Neutrophils % 82.5 Lymphocytes % 10.0 Monocytes % 7.1 Eosinophils % 0.0 Basophils % 0.1 Nucleated RBC % 0.0 Absolute Neutrophils 8.66 H Absolute Lymphocytes 1.05 L Absolute Monocytes 0.75 Absolute Eosinophils 0.00 Absolute Basophils 0.01 VBG Lactate 1.2 Sodium 126 L Potassium 4.4 Chloride 89 L Carbon Dioxide 30.8 Anion Gap 6.2 BUN 2 L Creatinine 0.7 Est GFR (CKD-EPI 2020) 101.62 Glucose 106 Calcium 8.5 Total Bilirubin 0.20 AST 16 ALT 17 Alkaline Phosphatase 128 H Total Protein 7.5 Albumin 2.7 L Lipase 36 Procalcitonin < 0.1 Last Vital Signs Temp 36.5 C 09/15/23 20:47 Pulse 78 09/16/23 01:52 Resp 18 09/16/23 01:52 BP 121/74 09/16/23 01:52 Pulse Ox 95 09/16/23 01:52 Time Spent Time spent with Patient: >75 minutes Time was spent: preparing to see the patient(eg.review tests), obtaining and/or reviewing separately otained hiistory, ordering medications,tests, procedures, referring, communicating with other health special needs caregiver, indepentently interpreting results, counseling the patient and care coordination
[2023-09-16] MEDS: Normal Saline 1,000 ML 150 ML IV ×3 (02:37→16:50)
--- NOTE | 2023-09-16 06:02 | W.PC.ACHO ---
Registration Status: ADM IN Primary Language: Preferred Language: Vietnamese ED Information & Data Chief Complaint GenMedical 09/15/23 20:55 Chief Complaint GenMedical 09/15/23 20:47 Triage Note Trouble swallowing and 09/15/23 20:47 eating for a couple weeks, having trouble since covid in February, went to [facility], is scheduled for swallow study, called today because he is feeling weak due to not eating Medical / Surgical History (Last Reviewed 09/16/23 @ 02:31 by Bandar Palomares) COVID Pneumonia Stroke Seizure disorder Depression Essential hypertension (01/22/13) Chronic obstructive lung disease (Last Reviewed 09/16/23 @ 02:31 by Bandar Palomares) KNEE REPAIR (~1999) ESOPHAGEAL REPAIR (~2004) Most Recent Vital Signs Temperature 37.1 C 09/16/23 02:32 Temperature Source Temporal Artery Scan 09/16/23 02:32 Pulse 63 09/16/23 02:32 Pulse 74 09/16/23 01:50 Respiratory Rate 20 09/16/23 02:32 Respiratory Effort Incrsd Work of Breathing 09/16/23 02:32 Respiratory Depth Shallow 09/16/23 02:32 Respiratory Pattern Normal 09/16/23 02:32 Blood Pressure 107/60 09/16/23 02:32 Blood Pressure Mean 75 09/16/23 02:32 Blood Pressure Position Supine 09/16/23 02:32 Pulse Oximetry 95 09/16/23 02:32 Oxygen Delivery Method Room Air 09/16/23 02:32 Oxygen Flow Rate 0 09/16/23 02:32 Comment arrival to unit 09/16/23 02:22 Allergies zonisamide Allergy (Unknown, Verified 09/15/23 20:56) unknown tamsulosin [From Flomax] Adverse Reaction (Severe, Verified 09/15/23 20:56) Swelling/Edema sertraline Adverse Reaction (Intermediate, Verified 09/15/23 20:56) unknown cefuroxime Adverse Reaction (Unknown, Verified 09/15/23 20:56) unknown guaifenesin Adverse Reaction (Unknown, Verified 09/15/23 20:56) unknown Precautions Isolation Standard precaution 09/15/23 20:55 Active Medications Generic Name Dose Route Start Last Admin Trade Name Freq PRN Reason Stop Dose Admin Sodium Chloride 1,000 mls @ 150 mls/hr 09/15/23 22:00 09/16/23 02:37 Saline 1000ml Bag IV 150 mls/hr INFUSION ADELITA Administration Iohexol 100 ml 09/15/23 22:30 09/15/23 22:29 Omnipaque 350 Mg/Ml 100 Ml Btl IJ 10/15/23 23:59 100 ml DIRECTED ADELITA Administration Sodium Chloride 50 ml 09/15/23 22:30 09/15/23 22:30 Normal Saline - Diluent 50 Ml Vial IJ 50 ml .FOR DI USE ADELITA Administration Sodium Chloride 0 ml 09/15/23 22:30 09/15/23 22:30 Normal Saline Flush 10 Ml Syr IVP 10 ml PRN PRN Administration IV IV Catheter Type [Left Peripheral IV Antecubital] IV Catheter Gauge [Left 18 Antecubital] Diet Orders Category Date Time Status Nothing Per Oral [DIET] Nutrition 09/16/23 Breakfast Active Diagnostics 09/16/23 09/15/23 Range/Units 05:35 21:07 WBC 10.50 (4.4-10.8) 10^3/uL RBC 3.35 L (4.36-5.78) 10^6/uL Hgb 10.5 L (13.5-17.5) g/dL Hct 30.3 L (40.0-50.0) % MCV 90 (80-95) fL MCH 31.3 (27.0-33.0) pg MCHC 34.7 (32.0-36.0) % RDW 11.9 (11.8-14.1) % Plt Count 356 (130-400) 10^3/uL MPV 9.5 (8.0-11.0) fL Immature Gran % 0.3 % Neutrophils % 82.5 % Lymphocytes % 10.0 % Monocytes % 7.1 % Eosinophils % 0.0 % Basophils % 0.1 % Nucleated RBC % 0.0 (0.0-0.3) % Absolute Neutrophils 8.66 H (1.2-6.7) 10^3/uL Absolute Lymphocytes 1.05 L (1.2-3.4) 10^3/uL Absolute Monocytes 0.75 (0.1-0.8) 10^3/uL Absolute Eosinophils 0.00 (0.0-0.7) 10^3/uL Absolute Basophils 0.01 (0.0-0.2) 10^3/uL VBG Lactate 1.2 (0.6-1.4) mmol/L Sodium Pending 126 L (136-145) mmol/L Potassium Pending 4.4 (3.5-5.1) mmol/L Chloride Pending 89 L (98-107) mmol/L Carbon Dioxide Pending 30.8 (21.0-32.0) mmol/L Anion Gap Pending 6.2 (3-11) mmol/L BUN Pending 2 L (7-18) mg/dL Creatinine Pending 0.7 (0.70-1.30) mg/dL Est GFR (CKD-EPI 2020) Pending 101.62 (mL/min/1.73m2) Glucose Pending 106 (74-106) mg/dL Calcium Pending 8.5 (8.5-10.1) mg/dL Total Bilirubin 0.20 (0.2-1.0) mg/dL AST 16 (15-37) U/L ALT 17 (16-63) U/L Alkaline Phosphatase 128 H (46-116) U/L Total Protein 7.5 (6.4-8.2) g/dL Albumin 2.7 L (3.4-5.0) g/dL Lipase 36 (16-77) U/L Procalcitonin < 0.1 ng/mL Intake and Output - 24 Hour Total 09/15/23 20:39 thru 09/16/23 03:07 Intake Total 952.5 Balance 952.5 Weight 63.5 kg Intake: IV 952.5 Other: Comment pt denies dysuria Falls Risk Assessment History of Falls Previous History 09/16/23 02:32 Contributing Factors Impairments 09/16/23 02:32 Ambulatory Aids Uses ambulatory device + 09/16/23 02:32 Tubes/Lines With any additional score 09/16/23 02:32 Gait Evaluation No gait disturbance 09/15/23 22:00 Cognition No cognitive impairment 09/16/23 02:32 Fall Total Score 68 09/16/23 02:32 Level of Risk High Risk 09/16/23 02:32 Problems (Last Reviewed 09/16/23 @ 02:31 by Bandar Palomares) Goals of care, counseling/discussion (Acute) Aspiration pneumonitis (Acute) Laryngeal mass (Acute) Dysphagia (Acute) Lower urinary tract symptoms (LUTS) (Acute) COPD (chronic obstructive pulmonary disease) (Chronic) Hyponatremia (Chronic) Smoker (Chronic) Gastroesophageal reflux disease (Acute) Notes 09/15/23 22:57 Nursing Notes by Fredrick Morrow Pt unable to swallow water, coughs and spits back up, pt unwilling to try to eat anything thicker, FPJ Initialized on 09/15/23 22:57 - END OF NOTE v v v v v v v v v Sending and/or Receiving Nurses: Please use comment section below to note any information pertinent to the patient hand-off not included above. Information / Comments: Report received from: Perla Patterson All questions answered: yes
[2023-09-16 06:25] LABS: BUN 3 mg/dL (7-18); CREATININE 0.7 mg/dL (0.70-1.30); Calcium 8.9 mg/dL (8.5-10.1); Chloride 92 mmol/L (98-107); Estimated GFR 101.62 (mL/min/1.73m2); Glucose 119 mg/dL (74-106); Potassium 4.4 mmol/L (3.5-5.1); Sodium 129 mmol/L (136-145)
[2023-09-16] MEDS: Pantoprazole 40 MG VIAL IVP (08:00)
[2023-09-16] MEDS: levETIRAcetam 750 MG in Normal Saline 100 ML 400 MG IVPB ×2 (08:12→21:23)
--- NOTE | 2023-09-16 09:19 | W.SPSTE ---
Date of service: 09/16/23 Time of Service: 08:00 Subjective Clinical (Bedside) Swallow Evaluation Speech Language Pathology Referred by: Dr Knox Referral Type: Clinical Swallow Evaluation Reason for Referral/HPI: Dana Mcmullen is a 67 yo male with history of heavy smoking (2+ PPD x 50 years) adm 09/16/23 secondary to difficulty swallowing and weight loss. Dana reports he has been having progressive swallowing difficulty with solids>liquids for several months. He describes coughing and food coming out his nose. He has been steadily losing weight for several months- reporting 7lb weight loss this past month. He did see his PCP for this issue on 08/30/23 and was pending an outpatient EMERGENCY COMMUNICATIONS OFFICER eval this date. Patient states he initially thought his symptoms were due to thrush after not rinsing following inhalers and did request Nystatin from PCP, though symptoms not improved after 7 days treatment. Workup during this admission has identified a large soft tissue density concerning for squamous cell carcinoma. He is aware of these findings and is pending referral for ENT for biopsy and palliative care referral. He expresses I don't know what I want to do, but I want to know my options. He is currently NPO pending EMERGENCY COMMUNICATIONS OFFICER eval. Imaging: Large soft tissue density mass involving the epiglottis, right aryepiglottic fold, effacing the right piriform sinus and involving the right false cord. Lesion extends over length of about 8 cm and has a maximal AP dimension 3 cm. Small bilateral vascular space nodes.. Circumferential hypodense wall thickening of the esophagus consistent with reflux esophagitis. EMERGENCY COMMUNICATIONS OFFICER IMPRESSIONS & RECOMMENDATIONS: Dana presents with severe pharyngeal phase dysphagia. Based on imaging findings, severely hoarse/wet vocal quality, and weak cough reflex, anticipate he is not achieving full laryngeal airway closure while swallowing/coughing. With PO trials of ice chips, water via tsp, and applesauce, patient demonstrated significant and consistent weak cough response. Patient is considered a very high risk for aspiration related illness. Recommend NPO with frequent oral care, with urgent MBSS to further assess. He expressed high frustration with being NPO overnight - stating he normally drinks 2 gallons of water daily and that drinking lots of water is necessary for his ability to clear secretions that build up from smoking. As to optimize patient comfort and ability to clear airway secretions, as well as minimize effects of disuse atrophy, recommend ice chips frequently after oral care. If patient is requesting liquids beyond ice chips, thin water via tsp would be considered the safest consistency, pending oral care has been completed. MBSS to be completed 1300 today 09/16/23 with additional recommendations forthcoming. FURTHER EMERGENCY COMMUNICATIONS OFFICER SERVICES: Patient to be followed while on unit. MBSS to be completed 1300 today 09/16/23. Diet Recommendations: NPO pending MBSS Frequent oral care on all oral structures (tongue/cheeks/gums) q3-4 hours. Consider use of mouth moisturizer agent found in suction swab packets for comfort. Ice chips OK after oral care SUBJECTIVE: Patient received alert/awake/oriented/agreeable to evaluation Pain Reported? None Baseline Swallow Function: Prior to admission, taking in mostly strawberry ensure, water, pepsi, sandwiches - with difficulty PO Trials Assessed: Ice IDDSI 0 Thin Liquids (via tsp x6) IDDSI 4 Puree Solid (Applesauce x 2) Oral Mechanism Examination: Patient is edentulous. White/green coating on lingual surface. Lingual ROM WFL. Oral Phase Findings: WFL Pharyngeal Phase Findings: Delayed swallow initiation Reduced hyolaryngeal elevation/excursion Wet/Weak cough after swallow with all trials - ice/thin via tsp/applesauce Wet/severely hoarse vocal quality at baseline, with increased wetness with some trials ASSESSMENT: Further EMERGENCY COMMUNICATIONS OFFICER Services indicated. Patient to be followed while on unit. Recommendation at Discharge: to be determined Suggested Referrals: ENT/biopsy pending; palliative consult pending Recommended Procedures: MBSS 1300 today RISK MANAGEMENT: HOB elevated to at least 30 degrees all times Oral hygiene q4 hours on all oral structures Education Provided to: patient, nursing, MD Topics Addressed:EMERGENCY COMMUNICATIONS OFFICER findings, POC, aspiration risks and precautions, swallowing anatomy/physiology PLAN: Frequency: 5x/week for 1-2 weeks Goals: Tea Bag Packer Goals: Patient will remain free from aspiration-related illness, malnutrition, and dehydration. Short Term Goals: Patient will participate in MBSS for further evaluation of pharyngeal phase of the swallow. Patient will tolerate PO trials for consideration of diet upgrade without overt s/s aspiration across 2/2 visits. EMERGENCY COMMUNICATIONS OFFICER CPT Code: 43772 Clinical Swallowing Evaluation TOTAL TIME: 30 Minutes ([phone])
--- NOTE | 2023-09-16 09:31 | PDOC.CMIN ---
Date of service: 09/16/23 Time of Service: 09:31 Care Management Initial Assmt Initial Assessment Reason for Hospitalization: laryngeal mass and aspiration pneumonia Functional Status/Living Situation Patient Presentation: Dana was sitting up in bed when CM met with him. He talked about his medical history and shared that he has been disabled since he was about 41 years old. 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 He shared that he has recovered about 70% of the function of his RUE and RLE. Dana was admitted because of an inability to swallow, significant weight loss and profound weakness. 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 If he were to have surgery it would involve removal of part of his tongue, a tracheostomy and a G-tube. He would not be able to eat normally again. Dana informed that he does not want surgery or chemotherapy or radiation. While ADOLFO was with Dana, Dr. Nettles came to do a Palliative Care Consult. ADOLFO remained in the room during the consultation.After a lengthy discussion Dana opted to change his code status to DNR/DNI with no feeding tube. Dana verbalized that he is not sure if he wants to have a biopsy or not, particularly since Dr. Nettles informed him that it would need to be done at [facility]. Hospice was also discussed and Dana is considering that option when he discharges home. Town of Residence: [place], [place] Resides with: Spouse Employment Status: Disabled Instrumental Activities of Daily Living (ADLs): Independent Medications Medication Management: Issues/Barriers with Other (has laryngfeal obstruction making oral medication administration challenging) Advance Directives Advance Directives: Do you have an Advance Directive: N 08/10/13 08:24 AD On File at [facility]: N 08/10/13 08:24 Date Asked 09/16/23 09/16/23 01:42 AD Date Reviewed COLST On File at [facility] No 09/15/23 20:50 COLST Date Scanned Code Status Resuscitation Status Full Code Portal Pt does not currently have a portal and education provided: No Insurance Coverage/Financial Issues Insurance: Medicare Financial Assist 70 ACO Member: Yes Care Team Visit Care Team Role Provider Type Maco Majano NP Primary Care Provider NURSE PRACTITIONER Charleen Ayala, ROUSTABOUT HEAD Other Providers SPEECH LANGUAGE PATHOLOGIST Pat Bello, ROUSTABOUT HEAD Other Providers SPEECH LANGUAGE PATHOLOGIST Sadia Sahni Other Providers SPEECH LANGUAGE PATHOLOGIST Ailin Leo, ROUSTABOUT HEAD Other Providers SPEECH LANGUAGE PATHOLOGIST Rona Cisneros, ROUSTABOUT HEAD Other Providers SPEECH LANGUAGE PATHOLOGIST LAMBERT Hoyt Emergency Provider [employer]MA[employer] PRODUCTION SPECIALIST Bandar Palomares Admit Provider [facility] STAFF PHYSICIAN Attending Provider Discharge Potential Discharge Needs: PCP F/U Appt, Surgical F/U Appt and Other (Will need full ENT workup) Anticipated Barriers to Discharge: Medical Status Patient/Family Education Needs: Review discharge instructions, discuss Ask Me Three Transportation: Private vehicle Plan: Anticipate Miguel will be discharged home with no new services. He will follow up with his PCP, surgery and ENT and transport with family. CM will follow and continue to assess for discharge needs. PFSH All Active Problems (Updated 09/16/23 @ 13:54 by Kel Howard MD) Supraglottic mass (Acute) Suprasellar mass (Acute) Anemia (Chronic) Goals of care, counseling/discussion (Acute) Aspiration pneumonitis (Acute) Laryngeal mass (Acute) Dysphagia (Acute) Lower urinary tract symptoms (LUTS) (Acute) Urinary retention (Acute) Pneumonia (Acute) COPD (chronic obstructive pulmonary disease) (Chronic) Decreased vision of right eye (Acute) Adult failure to thrive syndrome (Acute) Chronic anterior uveitis of right eye (Acute) Frequent falls (Acute) Lung nodules (Acute) Hyponatremia (Chronic) 12/2020-133 History of knee surgery (Acute) Smoker (Chronic) 100 plus pack years smoking Low back pain (Acute) History of alcoholism (Acute) Generalized osteoarthrosis (Acute) right knee Generalized convulsive epilepsy (Acute) Gastroesophageal reflux disease (Acute) Benign esophageal stricture (Acute) dilated 07/13 Medical History COVID Pneumonia 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 Father No problems noted. Social History (Updated 09/16/23 @ 02:32 by Bandar Palomares) Smoking/Tobacco Use Status: Current every day Tobacco Type: cigarettes Quit status: considering quitting Second Hand Exposure: Yes Smoking risk assessment performed?: Yes Alcohol Intake: former Drug use: Never Substance use type: does not use Counseling given: Yes Caregiver/Support person: No Household members: spouse Housing: other Communication Needs: None Do you need help understanding health information?: Never Pets and animals: No Sexually active: No Do you think of yourself as: straight/heterosexual Current gender identity: decline to answer What is your relationship status?: How often do you talk on the phone with friends or family?: three or more times per week How often do you get together with friends or relatives?: decline to answer How often do you attend mormonism or tenriism services?: decline to answer Do you belong to any clubs or organized social groups?: no Panel score (0-1 are the most socially isolated patients): 2 What type of physical activity do you participate in: decline to answer Duration: decline to answer Frequency: decline to answer Danette/Pentecostal: No preference Special danette needs: No Seatbelt use: sometimes Helmet use: Yes Helmet use: always Drive intox or ride w/intox vibratory pile driver: No Do you feel safe at home: Yes Do you feel safe in your relationship?: Yes Additional Social history: Lives with Denice in [place]. Disabled since brain abscess/CVA in 1995. SDOH(Care Management) Screening Will the Patient Participate in the Screening?: Yes Do you worry about having a steady place to live?: no Problems where you live: no known problems In the past 12 months, have you had to go without electric, gas, oil or water in your home?: no Have you or anyone in your house had to go without enough food to eat?: no Has lack of transportation kept you from medical appointments or from doing things needed for daily living?: yes Has anyone in your support network made you feel unsafe for any reason?: no Social Determinants of Health Comments(SDOH Details): pt now back to driving after recent cataract surgery Health Related Social Needs Health related social needs: transportation insecurity(Z59.82)
--- NOTE | 2023-09-16 09:41 | PGE_ITS ---
Date of Service Date of service: 09/16/23 Time of Service: 09:41 Assessment and Plan Assessment and plan (1) Laryngeal mass: Status: Acute Assessment and plan: He understands this is likely cancer. He wants biopsy confirmation although he is not sure he will want to go through any radiation treatment or surgery for this. He is discouraged by multiple family members who did not have good outcomes from treatment for other cancers. (2) Dysphagia: Status: Acute Assessment and plan: With resultant weight loss and aspiration. patient still wants to take PO, CENTERLESS GRINDER SET UP OPERATOR saw him this morning and is recommending NPO status but if he insists then just ice chips and sips of water; CENTERLESS GRINDER SET UP OPERATOR wants to perform MBSS this afternoon Dr. Howard, ENT will review his CT and consult on the patient (I spoke with him via phone after leaving message in the OR) Qualifiers: Dysphagia type: pharyngoesophageal phase Qualified Code(s): R13.14 - Dysphagia, pharyngoesophageal phase (3) Aspiration pneumonitis: Status: Acute Assessment and plan: He got a dose of levofloxacin for aspiration pneumonia, but CT just showing bronchiolitis and symptoms near baseline this point. Antibiotics were not continueds. Combivent was ordered but he refused it this morning. (4) COPD (chronic obstructive pulmonary disease): Status: Chronic Assessment and plan: Asmanex and Combivent were ordred on scheduled basis but he has refused any inhalers. I have dc Asmanaex as routine use of ICS is not indicated for routine use in COPD and he has hx of thrush from ICS. I did order his Combivent to prn Qualifiers: COPD type: unspecified COPD Qualified Code(s): J44.9 - Chronic obstructive pulmonary disease, unspecified (5) Hyponatremia: Status: Chronic Assessment and plan: chronic. He is getting NS now, which is appropriate as he appeared dry on presentation. Follow. (6) Smoker: Status: Chronic Assessment and plan: prison heavy smoker, patient is adamant is he is not going to quit. (7) Gastroesophageal reflux disease: Status: Acute Assessment and plan: Give PPI IV for now until able to take oral (8) Lower urinary tract symptoms (LUTS): Status: Acute Assessment and plan: monitor for retention. (9) Seizure disorder: Assessment and plan: Give seizure meds IV until it is safe to resume orals or he has g-tube. He did get his phenobarbitol 09/14, got keppra in ED. (10) Stroke: Assessment and plan: In 1995 complicating brain surgery. He is maintained on ASA. Resume when taking po. Qualifiers: CVA mechanism: thrombosis Laterality of affected vessel: left (11) Anemia: Status: Chronic Assessment and plan: mild, normocytic, in the setting of weight loss from dysphagia, laryngeal mass. No known bleeding. 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 Will need MRI for staging of likely squamous cancer question whether this is residual from prior brain abscess, would need comparison films however, in light of laryngeal mass, I would have low threshold for obtaining MRI of brain to r/o metastatic spread (13) Goals of care, counseling/discussion: Status: Acute Assessment and plan: He isn't sure about code status now. He has seen family members suffer with cancer treatment. He does want to know his options. Palliative care consult placed. Subjective Subjective Interval history since last seen: 67 yr old male smoker (2 ppd x 50 yr), former alcoholic, quit in 1995, hx of brain abscess from odontogenic infection, causing right sided CVA symptoms, occurred in December 1995 [place]/ [place] [facility] and prolonged recovery at [facility] for which he recoverd most of his strength on the right. He had complications of generalized tonic clonic seizures from the brain abscess. He is maintained on AED's including Keppra and phenobarbital to prevent seizures. He has not had any grand mal seizures in a number of years. He says that he has lost 18 lbs wt since February 2023 after recovering from pneumonia and COVID-19 infection. He has been having difficulty eating for several weeks, w/ coughing after meals. He says that it does not matter as to the texture/consistency of the foods he eats as to whether or not he will have trouble swallowing. Co- morbidities include chroni GERD, HTN and COPD (not on home oxygen and dose not use bronchodilators). Evaluation yesterday included CT of chest and neck. Neck CT was done w/ contrast and demonstrated large soft tissue mass involving the epiglottis, right aryepiglottic fold, effacing the right pyriform sinus and involving the right false vocal cord extending for 8 cm. He also has circumferential thickening of his esophagus c/w chronic reflux esophagitis. CT of chest demonstrated emphysema and bronchiolotis but no lung consolidations. Patient was admitted for evaluation of his hypopharyngeal/laryngeal mass. ENT consult, Palliative care consult and CENTERLESS GRINDER SET UP OPERATOR have all been consulted. Dr. Howard was not aware of the consult until I called and left a message in the OR for him to call me. We then discussed the case and he will review the CT scans and see the patient. Exam Narrative Exam Narrative: Middle age male w/ very hoarse/weak voice, alert and oriented otherwise and in no acute respiratory distress, not requiring oxygen HEENT: scar over right parietal skull from prior surgery, he is edentulous, tongue midline, normal movement; right side of palate does not elevate as well w/ phonation, no exudates Neck: nontender, I could not appreciate adenopathy either over anterior or posterior chain nor supraclavicular Lungs: prolonged expiratory phase, some expiratory wheezed diffusely Heart: RRR, no murmur or rub Abdomen: soft, nontender, nondistended Extremities: fairly equal strength in both hands and arms, equal strength in both legs w/ hip flexion Objective Last Vital Signs Temp 36.3 C L 09/16/23 07:20 Pulse 63 09/16/23 07:20 Resp 20 09/16/23 02:32 BP 113/62 09/16/23 07:20 Pulse Ox 95 09/16/23 07:20 Laboratory Results - last 24 hr 09/15/23 09/16/23 21:07 05:50 WBC 10.50 RBC 3.35 L Hgb 10.5 L Hct 30.3 L MCV 90 MCH 31.3 MCHC 34.7 RDW 11.9 Plt Count 356 MPV 9.5 Immature Gran % 0.3 Neutrophils % 82.5 Lymphocytes % 10.0 Monocytes % 7.1 Eosinophils % 0.0 Basophils % 0.1 Nucleated RBC % 0.0 Absolute Neutrophils 8.66 H Absolute Lymphocytes 1.05 L Absolute Monocytes 0.75 Absolute Eosinophils 0.00 Absolute Basophils 0.01 VBG Lactate 1.2 Sodium 126 L 129 L Potassium 4.4 4.4 Chloride 89 L 92 L Carbon Dioxide 30.8 29.0 Anion Gap 6.2 8.0 BUN 2 L 3 L Creatinine 0.7 0.7 Est GFR (CKD-EPI 2020) 101.62 101.62 Glucose 106 119 H Calcium 8.5 8.9 Total Bilirubin 0.20 AST 16 ALT 17 Alkaline Phosphatase 128 H Total Protein 7.5 Albumin 2.7 L Lipase 36 Procalcitonin < 0.1 Time Spent with Patient Time Spent with Patient: >50 minutes Time was spent: preparing to see the patient(eg.review tests), obtaining and/or reviewing separately otained hiistory, ordering medications,tests, procedures, referring, communicating with other health eye care professional (Dr. Howard and Dr. Palomares), indepentently interpreting results, counseling the patient and care coordination
--- NOTE | 2023-09-16 13:02 | ANES.CON_ITS ---
General Date of Service Date of Service: 09/16/23 Reason for Consult Requesting Provider: Kel Howard How Consult Conducted:: Chart Review Reason for Consult:: Evaluation for Anesthesia services at [facility] Consult Recommendation after Review:: Reviewed recent neck and chest CT and discussed with Dr. Howard his bedside exam. Based on imaging and his exam and in consultation with Sara Mcdaniel and Cici Castro we feel the patient is not a suitable candidate for anesthesia services here. Height: 5 ft 5 in Weight: 63.5 kg Body Mass Index (BMI): 23.3 Meds Allergies and Home Medications Allergies Allergy/AdvReac Type Severity Reaction Status Date / Time zonisamide Allergy Unknown unknown Verified 09/15/23 20:56 tamsulosin [From Flomax] AdvReac Severe Swelling/Ed Verified 09/15/23 20:56 sherlyn sertraline AdvReac Intermediate unknown Verified 09/15/23 20:56 cefuroxime AdvReac Unknown unknown Verified 09/15/23 20:56 guaifenesin AdvReac Unknown unknown Verified 09/15/23 20:56 Home Medication Medication Instructions Recorded vitamin B complex 1 cap PO .QOD 11/13/19 aspirin 81 mg tablet,delayed 81 mg PO BID #90 tabs 06/08/22 release sucralfate 1 gram tablet (Carafate) 1 g PO BID PRN gerd #180 tab-caps 06/08/22 Inhaler, Assist Devices [Pocket 1 ea miscellaneous DIRECTED ##0 02/17/23 Chamber] fluticasone propionate 100 1 inh inhalation Q12H #60 ea 04/04/23 mcg/actuation blister powder for inhalation ipratropium 20 mcg-albuterol 100 1 puff inhalation QID #4 grams 04/04/23 mcg/actuation mist for inhalation (Combivent Respimat) magnesium oxide 400 mg (241.3 mg 400 mg PO DAILY #90 tabs 05/24/23 magnesium) tablet fluticasone propionate 113 1 inh inhalation BID #1 ea 06/18/23 mcg/actuation breath activated pwdr inhal,sensor ([employer] Digihaler) escitalopram oxalate 10 mg tablet 10 mg PO DAILY #90 tab-caps 07/16/23 (Lexapro) levetiracetam 750 mg tablet 750 mg PO BID #180 tab-caps 07/30/23 (Keppra) phenobarbital 64.8 mg tablet 259.2 mg (4 x 64.8 mg) PO HS #360 07/30/23 tab-caps omeprazole 20 mg capsule,delayed 20 mg PO DAILY #90 caps 08/27/23 release nystatin 100,000 unit/mL oral 1 ml PO DAILY 09/15/23 suspension Current Visit Medications: Current Medications Generic Name Dose Route Start Last Admin Trade Name Freq PRN Reason Stop Dose Admin Albuterol/Ipratropium 1 puff 09/16/23 10:25 Ipratropium/Albuterol 4 Gm 120 Puff Inh IH QID PRN PRN wheezing Device 1 each 09/16/23 02:00 Inhaler, Assist Device MC DIRECTED ADELITA Sodium Chloride 1,000 mls @ 150 mls/hr 09/15/23 22:00 09/16/23 09:11 Saline 1000ml Bag IV 150 mls/hr INFUSION ADELITA Administration Levetiracetam 750 mg/ Sodium 107.5 mls @ 400 mls/hr 09/16/23 08:00 09/16/23 08:33 Chloride IVPB Infused Q12H ADELITA Infusion Nicotine 21 mg 09/16/23 02:22 Nicotine 21 Mg/24 Hr Patch TD DAILY PRN PRN Pantoprazole Sodium 40 mg 09/16/23 08:30 09/16/23 08:00 Pantoprazole 40 Mg Vial IVP 40 mg DAILY ADELITA Administration Phenobarbital Sodium 240 mg 09/16/23 20:00 Phenobarbital 130 Mg/Ml Vial IVP [facility] Sodium Chloride 0 ml 09/15/23 22:30 09/15/23 22:30 Normal Saline Flush 10 Ml Syr IVP 10 ml PRN PRN Administration PFSH Active Problems Active Problems: Problem Status Onset Code 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 Anemia D64.9 Goals of care, counseling/discussion Z71.89 Aspiration pneumonitis J69.0 Laryngeal mass J38.7 Dysphagia R13.10 Lower urinary tract symptoms (LUTS) R39.9 Urinary retention R33.9 Pneumonia J18.9 COPD (chronic obstructive pulmonary disease) J44.9 Decreased vision of right eye H54.61 Adult failure to thrive syndrome R62.7 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 Frequent falls R29.6 Lung nodules R91.8 Hyponatremia E87.1 History of knee surgery Z98.890 Smoker F17.200 Low back pain M54.5 History of alcoholism F10.21 Generalized osteoarthrosis M15.9 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 Gastroesophageal reflux disease K21.9 Benign esophageal stricture K22.2 Medical History Medical History COVID Pneumonia Stroke right hemiparesis post brain surgery 1995 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 Depression Essential hypertension (01/22/13) Chronic obstructive lung disease Surgical History Surgical History KNEE REPAIR (~1999) LEFT ESOPHAGEAL REPAIR (~2004) STRICTURE Tobacco Smoking/Tobacco Use Status: Current every day Tobacco Type: cigarettes Second hand exposure: Yes Alcohol Alcohol Intake: former Substance Use Substance use: Never Substance use type: does not use Vital Signs & Lab Results Vital Signs Most Recent Vital Signs: Most Recent Vital Signs Temp Pulse Resp BP Pulse Ox 36.3 C L 63 20 113/62 95 09/16/23 07:20 09/16/23 07:20 09/16/23 02:32 09/16/23 07:20 09/16/23 07:20 Point of Care Results Nursing Point of Care Results: 2 No Data to Display Lab Results 09/15/23 21:07 09/16/23 05:50 Blood Type / Crossmatch: 2 No Data to Display Complete Blood Count: 2 White Blood Count 10.50 10^3/uL (4.4-10.8) 09/15/23 21:07 Red Blood Count 3.35 10^6/uL (4.36-5.78) L 09/15/23 21:07 Hemoglobin 10.5 g/dL (13.5-17.5) L 09/15/23 21:07 Hematocrit 30.3 % (40.0-50.0) L 09/15/23 21:07 Platelet Count 356 10^3/uL (130-400) 09/15/23 21:07 Venous Blood Lactate 1.2 mmol/L (0.6-1.4) 09/15/23 21:07 Complete Metabolic Panel: 2 Sodium 129 mmol/L (136-145) L 09/16/23 05:50 Potassium 4.4 mmol/L (3.5-5.1) 09/16/23 05:50 Chloride 92 mmol/L (98-107) L 09/16/23 05:50 Carbon Dioxide 29.0 mmol/L (21.0-32.0) 09/16/23 05:50 BUN 3 mg/dL (7-18) L 09/16/23 05:50 Creatinine 0.7 mg/dL (0.70-1.30) 09/16/23 05:50 Est GFR (CKD-EPI 2020) 101.62 (mL/min/1.73m2) 09/16/23 05:50 Calcium 8.9 mg/dL (8.5-10.1) 09/16/23 05:50 Albumin 2.7 g/dL (3.4-5.0) L 09/15/23 21:07 Glucose 119 mg/dL (74-106) H 09/16/23 05:50 Liver Function Panel: 2 Alanine Aminotransferase (ALT/SGPT) 17 U/L (16-63) 09/15/23 21: 07 Aspartate Amino Transf (AST/SGOT) 16 U/L (15-37) 09/15/23 21:07 Coagulation Panel: 2 No Data to Display Cardiac Panel: 2 No Data to Display Arterial Blood Gas: 2 No Data to Display Venous Blood Gas: 2 No Data to Display Pancreas Panel: 2 Lipase 36 U/L (16-77) 09/15/23 21:07 Thyroid Panel: 2 No Data to Display Infectious Disease: 2 No Data to Display Blood Cultures: 2 No Data to Display Toxicology Panel: 2 No Data to Display
--- NOTE | 2023-09-16 13:23 | W.ENTCONSULT ---
Date of service: 09/16/23 Time of Service: 13:23 History of Present Illness History of Present Illness Chief Complaint: Dysphagia, hoarseness Narrative: The patient was admitted last night for progressive dysphagia and hoarseness over the past [address] scan of his neck and chest yesterday that reveals a large mass within the supraglottic airway, favoring the right side. He notes no hemoptysis. He notes no otalgia. He is still a smoker. He is a recovering alcoholic. He notes multiple family members have had cancers of various types. He expresses that he is not interested in any chemotherapy, radiation therapy, or surgery. Having said this, he would like a tissue diagnosis. He notes no previous history of cancer. He notes no other lumps or bumps. He notes that he has had significant weight loss of late. He feels his symptoms are progressing fairly rapidly. Consults Consult date: 09/16/23 Requesting physician: Bandar Palomares Assessment and Plan Assessment and plan (1) Supraglottic mass: Status: Acute Assessment and plan: The patient has a large fungating supraglottic mass that appears to extend down to and possibly involve the right vocal cord. His airway is tenuous. I reviewed the findings with the patient, explained that I strongly believe this represents a malignancy. We discussed that if this is not treated, he will have progressive dysphagia, and will eventually suffocate. While he would like a tissue diagnosis, he is not interested in treatment at this point in time. After meeting with the patient, I spoke with the anesthetists, 3 of whom were available and they felt that this should not be done at this facility. Explained that I was not planning an intubation, and that we could get a surgical airway if we needed to, although ideally I would just put him under deep sedation, use a MAC blade for visualization and remove a small biopsy, but I understand where they are coming from. I have spoken with Dr. Stewart and explained that if he does want a biopsy, he will need to be transferred to a larger Medical Center. The alternative as he expresses no interest in treatment is to treat this is a presumptive diagnosis, and put him on hospice care. I will be available should there be further questions or further concerns. PFSH All Active Problems (Updated 09/16/23 @ 13:54 by Kel Howard MD) Supraglottic mass (Acute) Suprasellar mass (Acute) Anemia (Chronic) Goals of care, counseling/discussion (Acute) Aspiration pneumonitis (Acute) Laryngeal mass (Acute) Dysphagia (Acute) Lower urinary tract symptoms (LUTS) (Acute) Urinary retention (Acute) Pneumonia (Acute) COPD (chronic obstructive pulmonary disease) (Chronic) Decreased vision of right eye (Acute) Adult failure to thrive syndrome (Acute) Chronic anterior uveitis of right eye (Acute) Frequent falls (Acute) Lung nodules (Acute) Hyponatremia (Chronic) 12/2020- History of knee surgery (Acute) Smoker (Chronic) 100 plus pack years smoking Low back pain (Acute) History of alcoholism (Acute) Generalized osteoarthrosis (Acute) right knee Generalized convulsive epilepsy (Acute) Gastroesophageal reflux disease (Acute) Benign esophageal stricture (Acute) dilated 07/13 Medical History COVID Pneumonia 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 Father No problems noted. Social History (Updated 09/16/23 @ 02:32 by Bandar Palomares) Smoking/Tobacco Use Status: Current every day Tobacco Type: cigarettes Quit status: considering quitting Second Hand Exposure: Yes Smoking risk assessment performed?: Yes Alcohol Intake: former Drug use: Never Substance use type: does not use Counseling given: Yes Caregiver/Support person: No Household members: spouse Housing: other Communication Needs: None Do you need help understanding health information?: Never Pets and animals: No Sexually active: No Do you think of yourself as: straight/heterosexual Current gender identity: decline to answer What is your relationship status?: How often do you talk on the phone with friends or family?: three or more times per week How often do you get together with friends or relatives?: decline to answer How often do you attend buddhist or lutheran services?: decline to answer Do you belong to any clubs or organized social groups?: no Panel score (0-1 are the most socially isolated patients): 2 What type of physical activity do you participate in: decline to answer Duration: decline to answer Frequency: decline to answer Danette/Protestant: No preference Special danette needs: No Seatbelt use: sometimes Helmet use: Yes Helmet use: always Drive intox or ride w/intox newspaper delivery driver: No Do you feel safe at home: Yes Do you feel safe in your relationship?: Yes Additional Social history: Lives with Denice in [place]. Disabled since brain abscess/CVA in 1995. Exam Narrative Exam Narrative: Awake, alert, and oriented x 3. In no acute distress. Voice is hoarse, with reasonable projection. He is handling his secretions but with grimacing. He does not have any stridor or stertor. Const General: cooperative Orientation: alert, awake and oriented x3 HENMT Ears: hearing grossly normal bilaterally and external ears normal General nose exam: external nose normal, nares normal, nasal mucous membranes and turbinates normal and septum normal (Mildly deviated) Face and sinus: normal facial exam, sinuses nontender and face symmetric Mouth: oral mucosae normal, lip normal and tongue normal Teeth and gingiva: edentulous Throat: posterior oropharynx normal, tonsils normal (Atrophic), uvula midline, no peritonsillar masses, no postnasal drainage, no uvular edema and other (Tongue base and epiglottis cannot be visualized) Neck Neck: normal visual inspection, limited ROM, trachea midline, no lymphadenopathy noted, nontender, No submandibular swelling and other (Larynx rises and falls with swallow. Laryngeal crepitance is present. ) Resp Auscultation: diminished lung sounds bilaterally throughout, no rhonchi and no wheezes Cardio Rate: regular rate Rhythm: regular rhythm Skin Other: Solar and age-related changes across the head and neck Results Last Vital Signs Temp 36.3 C L 09/16/23 07:20 Pulse 63 09/16/23 07:20 Resp 20 09/16/23 02:32 BP 113/62 09/16/23 07:20 Pulse Ox 95 09/16/23 07:20 Labs 09/15/23 21:07 09/16/23 05:50 Labs: Laboratory Results - last 24 hr 09/15/23 09/16/23 21:07 05:50 WBC 10.50 RBC 3.35 L Hgb 10.5 L Hct 30.3 L MCV 90 MCH 31.3 MCHC 34.7 RDW 11.9 Plt Count 356 MPV 9.5 Immature Gran % 0.3 Neutrophils % 82.5 Lymphocytes % 10.0 Monocytes % 7.1 Eosinophils % 0.0 Basophils % 0.1 Nucleated RBC % 0.0 Absolute Neutrophils 8.66 H Absolute Lymphocytes 1.05 L Absolute Monocytes 0.75 Absolute Eosinophils 0.00 Absolute Basophils 0.01 VBG Lactate 1.2 Sodium 126 L 129 L Potassium 4.4 4.4 Chloride 89 L 92 L Carbon Dioxide 30.8 29.0 Anion Gap 6.2 8.0 BUN 2 L 3 L Creatinine 0.7 0.7 Est GFR (CKD-EPI 2020) 101.62 101.62 Glucose 106 119 H Calcium 8.5 8.9 Total Bilirubin 0.20 AST 16 ALT 17 Alkaline Phosphatase 128 H Total Protein 7.5 Albumin 2.7 L Lipase 36 Procalcitonin < 0.1 Imaging Imaging Studies: EXAM: CT NECK CHEST W (09/15/2023 CLINICAL HISTORY: dysphagia, known fungal infection of throat TECHNIQUE: Imaging Protocol: Axial computed tomography images with coronal and sagittal reformatted images were created and reviewed CONTRAST MATERIAL: Intravenous: Omnipaque 350 Contrast volume:100 ml Oral: / no COMPARISON: CT CT CHEST WO from 04/04/2023 FINDINGS: Neck: Exam is limited by motion. Parotids/submandibular/thyroid gland: Normal. Lymphadenopathy: Small lymph nodes noted in the bilateral vascular space.. Carotids/Jugular: Calcification at the common carotid bulbs. No significant stenosis. Vertebral arteries appear patent. Soft tissues: The floor the mouth is unremarkable. Signal motion in the region of the vocal cords and epiglottis. Marked thickening of the epiglottis. Apparent mass on the right extending from the level of the false cords through the level of the epiglottis. Rough measurements are 3 by 3 x 5 cm. Bones: No fracture. No lytic or blastic lesions. Scoliosis and degenerative changes. Visualized portions of the brain: Mildly enhancing mass in the sella. Some expansion of the sella. Chest: Tracheobronchial tree: Patent where visualized. Mediastinum and Kathrin: No dominant adenopathy or fluid collection. Esophageal thickening could indicate esophagitis. Pulmonary parenchyma: Nodular infiltrate seen at left lower lung base. Minimal nodular infiltrate seen in superior segment right lower lobe. Emphysematous changes at apices. Stable small nodules in right upper lobe.. Pleura: No effusion or pneumothorax. Heart/Aorta: Thoracic aorta non-dilated. The heart is not dilated. Pulmonary arteries: No evidence of emboli. Bones: Multiple old rib fractures again noted. Old L1 compression fractures unchanged. No acute fracture. No lytic or blastic lesions. Soft tissues: Rounded density in the posterior subcutaneous fat likely represents a sebaceous cyst. Visualized portions of the upper abdomen show no acute findings. IMPRESSION: Exam limited by motion however the findings are suspicious for a right-sided neck mass involving the epiglottis and extending down to the level of the vocal cords. Mild diffuse esophageal wall thickening suspicious for esophagitis. Findings consistent with aspiration pneumonitis at left lower lobe and small infiltrate in superior segment right lower lobe. 2 centimeter mass in the sella. It may represent a pituitary adenoma. MRI of the brain with contrast recommended. Flexible laryngoscopy: As his larynx and hypopharynx cannot be visualized with mirror today, I recommended flexible laryngoscopy. We reviewed the risks and benefits. The patient wished to proceed. As such, the flexible laryngoscope was carefully introduced in the right nares, and carefully advanced into the nasopharynx, and then into the oropharynx which allowed excellent visualization of the hypopharynx and larynx. His tongue base appears normal. His nasopharynx appears normal. His epiglottis reveals a large fungating mass along the posterior aspect of the epiglottis, extending down into the glottis, and possibly involving the right vocal cord but the right vocal cord cannot be visualized secondary to the mass. The left vocal cord can only be partially visualized but does appear to be mobile. There are thick secretions within the larynx that the patient has difficulty clearing. There is no obvious bleeding. His airway is tenuous. There are no signs of infection or inflammation. His piriform sinuses and hypopharynx appear unremarkable otherwise. Procedures Laryngoscopy Technique: indirect nasal laryngoscopy (See above) Complications: none Post-procedure exam: awake, alert
[2023-09-16] MEDS: Barium Sulfate Oral Paste 40% W/V 230 ML TUBE PO (14:09)
[2023-09-16] MEDS: Barium Sulfate 81% w/w for Oral Suspension 148 GM BTL PO (14:10)
[2023-09-16] MEDS: Barium Sulfate 40% W/V 240 ML BTL PO (14:11)
[2023-09-16] MEDS: Barium Sulfate 40% W/V 1500 CPS 250 ML BTL PO (14:13)
--- NOTE | 2023-09-16 15:45 | ST.MBS ---
Date of Service Date of service: 09/16/23 Time of Service: 13:00 Modified Barium Swallow Study Findings: INPATIENT Video fluoroscopic Swallowing Evaluation (VFSE) / Modified Barium Swallow Study (MBSS) Speech Language Pathology Report Patient referred for VFSE/MBSS from Dr. Knox given dysphagia/weightloss/suspected pharyngeal mass. HPI & Patient report of function: Patient is a 67 year old male adm 09/16/23 with progressive dysphagia and significant weight loss (suspected 10-20lbs, in addition to recent weight loss when sick with COVID and pna in February 2023). CT of the neck revealed large soft tissue density mass in supraglottic airway, right side. ENT nasolaryngoscopy revealed large fungating supraglottic mass that appears to extend down to and possibly involve the right vocal cord. His airway is tenuous. Patient is pending biopsy, however per anesthesiology this cannot be performed at [facility] and would require transfer to larger medical center. COMPLIANCE REVIEWER non-instrumental swallow evaluation earlier this morning recommended NPO with MBSS. PMHx: Heavy smoker (2+ppd x55 years), COPD, chronic hyponatremia, seizure disorder, hx brain abscess Previous Imaging: CT Neck 09/16/23: Large soft tissue density mass involving the epiglottis, right aryepiglottic fold, effacing the right piriform sinus and involving the right false cord. Lesion extends over length of about 8 cm and has a maximal AP dimension 3 cm. Small bilateral vascular space nodes.. Circumferential hypodense wall thickening of the esophagus consistent with reflux esophagitis. IMPRESSIONS: Dana presents with severe pharyngeal phase dysphagia, characterized by impaired epiglottic deflection/impaired airway closure during the swallow, resulting in penetration into the airway during the swallow with large quantity aspiration immediately after the swallow. Aspiration occurred consistently with all trialed consistencies. Cough reflex is consistently elicited with aspiration, though not effective enough to fully expectorate aspirated bolus. Pharyngeal coating is appreciated with all trials, primarily in pyriform sinus space, with cough effective to clear towards airway with re-swallow. Swallow safety and efficiency are severely impaired. In addition to being a very high aspiration risk with all consistencies, I do not anticipate patient can meet nutritional needs orally. This clinician had a diya conversation with Dana, explaining findings with review of images, and discussion regarding alternate nutrition. He states I look at a feeding tube like life support, and I don't think I'd want that. He further states that he would like to get a biopsy to know for sure that it is cancer before determining the plan. He states he does not think he would like to pursue treatment but I also need to think about what my wants. Education provided to patient re: risks for aspiration-related illness. At this time while still determining goals of care, he would like to follow COMPLIANCE REVIEWER recommendations with the exception that I need to be allowed to drink something expressing high discomfort with just ice chips. Explained Parikh Free Water Protocol, in which small single sips of thin water are allowed immediately following oral care, and he would like to move forward with this (see recommendations below). Palliative consult pending to determine goals of care. COMPLIANCE REVIEWER to continue to follow for support with family/patient education. RECOMMENDATIONS: Solids - None Liquids - As per FFWP: small single sips of thin liquid water and/or ice chips OK after completion of thorough oral care. The Parikh Free Water Protocol (FFWP)?allows patients with dysphagia to drink small sips of water or have ice chips only after they have had strict oral care for at least 2 min. Water has a neutral pH whereas other thin fluids such as coffee/tea/soda do not. Therefore it is the safest fluid for the lungs to naturally absorb small amounts of water if aspirated. Patient is aware that he is still at risk for aspiration-related illness in the setting of limited mobility and larger quantity aspiration. Medications - Non oral Risk Management Strategies:? Very small sips, approx 5mL / teaspoon Encourage avoidance of straws Oral hygiene q4 hours. Use suction swab on all oral surfaces using antiseptic mouthwash. Consider use of oral moisturizer agent HOB elevated at least 30 degrees at all times HOB bolt upright for all ice chips/thin liquids PLAN: COMPLIANCE REVIEWER to continue to follow while in-house Goals: [facility] Goals: Patient will remain free from aspiration-related illness, malnutrition, and dehydration. - Ongoing Short Term Goals: Patient will participate in MBSS for further evaluation of pharyngeal phase of the swallow. - Met Patient will tolerate PO trials for consideration of diet upgrade without overt s/s aspiration across 2/2 visits. - Deferred Patient/family will verbalize comprehension re: dysphagia dx and aspiration precautions - Ongoing OBJECTIVE Videofluoroscopic Swallow Evaluation (VFSE/MBSS) was conducted in the lateral projection by Speech-Language Pathologist, in collaboration with Radiologist, to evaluate oropharyngeal swallow function. PO Barium Contrast Trials Oral barium water-soluble contrast was administered as follows: IDDSI Level 0 Varibar thin liquid (40% w/v) IDDSI Level 2 Varibar nectar thick/mildly thick liquid (40% w/v) IDDSI Level 3 Varibar thin honey/liquidised/moderately-thick (40% w/v) MBSImP Component Scores: COMPONENT Scale SCORE 1 Lip closure (0-4) 0 Resulted in no labial escape 2 Hold Position (0-3) 2 Resulted in posterior escape of less than half of the bolus 3 Bolus Preparation (0-4) 0 WFL for limited trials assessed today. Patient 'swished' bolus in mouth which he states can help him swallow easier. 4 Bolus Transport (0-4) 0 Was with brisk tongue motion 5 Oral Residue (0-4) 1 Was a trace, lining oral structures 6 Swallow Initiation (0-4) 3 Occurred when the bolus head was in the pyriform sinuses 7 Soft Palate Elevation (0-4) 0 Resulted in no bolus between soft palate and the pharyngeal wall 8 Laryngeal Elevation (0-3) 1 Was decreased with partial superior movement of thyroid cartilage/partial approximation of arytenoids to epiglottic petiole 9 Anterior Hyoid Motion (0-2) 1 Demonstrated partial anterior movement 10 Epiglottic Movement (0-2) 2 Resulted in no inversion 11 Laryngeal Closure (0-2) 2 Was non-existent with a wide column of air/contrast in laryngeal vestibule 12 Pharyngeal Stripping Wave (0-2) 1 Was present, but diminished 13 Pharyngeal Contraction (0-3) NA 14 PES Opening (0-3) 1 Demonstrated partial distension/partial duration, with partial obstruction of flow 15 Tongue Base Retraction (0-4) 2 Allowed a narrow column of contrast or air between the retracted tongue base and the posterior pharyngeal wall 16 Pharyngeal Residue (0-4) 2 Was a collection of residue within or on pharyngeal structures 17 Esophageal Clearance (0-4) NA Results: COMPONENT Scale SCORE 1 Oral Score (0-18) 5 2 Pharyngeal Score (0-29) 12 3 Esophageal Score (0-4) 0 Penetration-Aspiration Scale: COMPONENT Scale SCORE 1 Thin liquid (1-8) 7 Contrast entered the airway, passed below the vocal folds, and was not ejected from the trachea despite effort. 2 Mazon thick (1-8) 7 Contrast entered the airway, passed below the vocal folds, and was not ejected from the trachea despite effort. 3 Honey thick (1-8) 7 Contrast entered the airway, passed below the vocal folds, and was not ejected from the trachea despite effort. 4 Pudding thick (1-8) NA 5 Cookie (1-8) NA EAT-10: Trialed Compensatory Strategies & Outcome: Maneuvers Successful (+) Unsuccessful (-) Postures Successful (+) Unsuccessful (-) 3 second Preparatory Set? ?Unsuccessful Chin Tuck Posture? ?Unsuccessful ? Cough? ? Posterior Head tilt? Reflexive? Cued? Throat Clear? ? Head Tilt to? Reflexive? Left? Cued? Right? ? Saliva swallow? ? Head Turn/Rotate to? ? Supraglottic Swallow? Left? ? Super-supraglottic Swallow? Right? ? Bolus Modifications Successful (+) Unsuccessful (-) Delivery/Alternating Consistencies ? Follow with Liquid Wash ? Follow with Solid Bolus? Delivery/Via Straw? ? Reduced Volume? ? Reduced Rate of Intake? ? Increased Viscosity? ? Other:?? ? Thank you for allowing us to take part in this patient's care. Please feel free to contact the [facility] Speech Language Pathology Department with any questions/concerns.
--- NOTE | 2023-09-16 16:44 | W.PC.ACHO ---
Registration Status: ADM IN Primary Language: Preferred Language: Vietnamese ED Information & Data Chief Complaint GenMedical 09/15/23 20:55 Chief Complaint GenMedical 09/15/23 20:47 Triage Note Trouble swallowing and 09/15/23 20:47 eating for a couple weeks, having trouble since covid in February, went to [facility], is scheduled for swallow study, called today because he is feeling weak due to not eating Medical / Surgical History (Last Reviewed 09/16/23 @ 02:31 by Bandar Palomares) COVID Pneumonia Stroke Seizure disorder Depression Essential hypertension (01/22/13) Chronic obstructive lung disease (Last Reviewed 09/16/23 @ 02:31 by Bandar Palomares) KNEE REPAIR (~1999) ESOPHAGEAL REPAIR (~2004) Most Recent Vital Signs Temperature 37 C 09/16/23 15:16 Temperature Source Temporal Artery Scan 09/16/23 15:16 Pulse 70 09/16/23 15:16 Pulse Rhythm Regular 09/16/23 15:08 Pulse 74 09/16/23 01:50 Respiratory Rate 20 09/16/23 15:16 Respiratory Effort Labored 09/16/23 15:08 Respiratory Depth Normal 09/16/23 15:08 Respiratory Pattern Normal 09/16/23 15:08 Blood Pressure 134/66 09/16/23 15:16 Blood Pressure Mean 77 09/16/23 07:20 Blood Pressure Position Supine 09/16/23 02:32 Pulse Oximetry 94 09/16/23 15:16 Oxygen Delivery Method Room Air 09/16/23 15:16 Oxygen Flow Rate 0 09/16/23 15:16 Pain Level 0 09/16/23 15:16 Comment arrival to unit 09/16/23 02:22 Allergies zonisamide Allergy (Unknown, Verified 09/15/23 20:56) unknown tamsulosin [From Flomax] Adverse Reaction (Severe, Verified 09/15/23 20:56) Swelling/Edema sertraline Adverse Reaction (Intermediate, Verified 09/15/23 20:56) unknown cefuroxime Adverse Reaction (Unknown, Verified 09/15/23 20:56) unknown guaifenesin Adverse Reaction (Unknown, Verified 09/15/23 20:56) unknown Precautions Isolation Standard precaution 09/15/23 20:55 Active Medications Generic Name Dose Route Start Last Admin Trade Name Freq PRN Reason Stop Dose Admin Sodium Chloride 1,000 mls @ 150 mls/hr 09/15/23 22:00 09/16/23 09:11 Saline 1000ml Bag IV 150 mls/hr INFUSION ADELITA Administration Levetiracetam 750 mg/ Sodium 107.5 mls @ 400 mls/hr 09/16/23 08:00 09/16/23 08:33 Chloride IVPB Infused Q12H ADELITA Infusion Pantoprazole Sodium 40 mg 09/16/23 08:30 09/16/23 08:00 Pantoprazole 40 Mg Vial IVP 40 mg DAILY ADELITA Administration Sodium Chloride 0 ml 09/15/23 22:30 09/15/23 22:30 Normal Saline Flush 10 Ml Syr IVP 10 ml PRN PRN Administration IV IV Catheter Type [Left Peripheral IV Antecubital] IV Catheter Gauge [Left 18 Antecubital] Diet Orders Category Date Time Status Nothing Per Oral [DIET] Nutrition 09/16/23 Dinner Active Diagnostics 09/16/23 09/15/23 Range/Units 05:50 21:07 WBC 10.50 (4.4-10.8) 10^3/uL RBC 3.35 L (4.36-5.78) 10^6/uL Hgb 10.5 L (13.5-17.5) g/dL Hct 30.3 L (40.0-50.0) % MCV 90 (80-95) fL MCH 31.3 (27.0-33.0) pg MCHC 34.7 (32.0-36.0) % RDW 11.9 (11.8-14.1) % Plt Count 356 (130-400) 10^3/uL MPV 9.5 (8.0-11.0) fL Immature Gran % 0.3 % Neutrophils % 82.5 % Lymphocytes % 10.0 % Monocytes % 7.1 % Eosinophils % 0.0 % Basophils % 0.1 % Nucleated RBC % 0.0 (0.0-0.3) % Absolute Neutrophils 8.66 H (1.2-6.7) 10^3/uL Absolute Lymphocytes 1.05 L (1.2-3.4) 10^3/uL Absolute Monocytes 0.75 (0.1-0.8) 10^3/uL Absolute Eosinophils 0.00 (0.0-0.7) 10^3/uL Absolute Basophils 0.01 (0.0-0.2) 10^3/uL VBG Lactate 1.2 (0.6-1.4) mmol/L Sodium 129 L 126 L (136-145) mmol/L Potassium 4.4 4.4 (3.5-5.1) mmol/L Chloride 92 L 89 L (98-107) mmol/L Carbon Dioxide 29.0 30.8 (21.0-32.0) mmol/L Anion Gap 8.0 6.2 (3-11) mmol/L BUN 3 L 2 L (7-18) mg/dL Creatinine 0.7 0.7 (0.70-1.30) mg/dL Est GFR (CKD-EPI 2020) 101.62 101.62 (mL/min/1.73m2) Glucose 119 H 106 (74-106) mg/dL Calcium 8.9 8.5 (8.5-10.1) mg/dL Total Bilirubin 0.20 (0.2-1.0) mg/dL AST 16 (15-37) U/L ALT 17 (16-63) U/L Alkaline Phosphatase 128 H (46-116) U/L Total Protein 7.5 (6.4-8.2) g/dL Albumin 2.7 L (3.4-5.0) g/dL Lipase 36 (16-77) U/L Procalcitonin < 0.1 ng/mL Intake and Output - 24 Hour Total 09/15/23 20:39 thru 09/16/23 15:08 Intake Total 2045.0 Output Total 975 Balance 1070.0 Weight 63.5 kg Intake: IV 2045.0 Output: Urine 975 Other: Urine Color Straw Urine Appearance Clear Urine Odor Normal Comment pt denies dysuria Voiding Methods Bedside Commode Falls Risk Assessment History of Falls Previous History 09/16/23 02:32 Contributing Factors Impairments 09/16/23 02:32 Ambulatory Aids Uses ambulatory device + 09/16/23 02:32 Tubes/Lines With any additional score 09/16/23 02:32 Gait Evaluation No gait disturbance 09/15/23 22:00 Cognition No cognitive impairment 09/16/23 02:32 Fall Total Score 68 09/16/23 02:32 Level of Risk High Risk 09/16/23 02:32 Problems (Last Reviewed 09/16/23 @ 02:31 by Bandar Palomares) Supraglottic mass (Acute) Suprasellar mass (Acute) Anemia (Chronic) Goals of care, counseling/discussion (Acute) Aspiration pneumonitis (Acute) Laryngeal mass (Acute) Dysphagia (Acute) Lower urinary tract symptoms (LUTS) (Acute) COPD (chronic obstructive pulmonary disease) (Chronic) Hyponatremia (Chronic) Smoker (Chronic) Gastroesophageal reflux disease (Acute) Notes 09/15/23 22:57 Nursing Notes by Fredrick Morrow Pt unable to swallow water, coughs and spits back up, pt unwilling to try to eat anything thicker, FPJ Initialized on 09/15/23 22:57 - END OF NOTE v v v v v v v v v Sending and/or Receiving Nurses: Please use comment section below to note any information pertinent to the patient hand-off not included above. Information / Comments: Patient presented with a lyrngeal mass. A&OX3, with a wheeze auscultated from lungs, and a regular sinus heart rate. On room air, satting in mid 90's and an intermittent productive cough. Currently NPO but allowed small sips of thin water and ice chips. Needs to be on seizure precaution and is a high aspiration risk, so must be sitting at 90 degrees when drinking. An assist of 2 with walker to ambulate with right sided weakness. Currently on NS @ 150mL/hr. Report received from: Rosmery Starks
--- NOTE | 2023-09-16 20:38 | PCNE_ITS ---
Date of service: 09/16/23 Time of Service: 16:00 History of Present Illness History of Present Illness Chief Complaint: throat mass Narrative: I am seeing Dana?who is a 67-year-old man status post brain abscess with consequential surgery, seizure disorder, throat mass, weight loss with failure to thrive, weakness, lung nodules with lung smoking history, etc. Palliative consult was ordered to establish goals of care. Today Dana has seen a lot of people. He seen the hospitalist Dr. Jacques, Dr. Howard and ENT , speech therapy and also anesthesia. He does have a large throat mass. Due to his many conditions and comorbidities anesthesia does not feel that it would be safe to obtain a biopsy of this throat mass at an [facility] and he would need to go to another facility. He also states that if this is cancer he does not think that he wants to undergo treatment primarily because he has had other people who have undergone treatment for cancers and they did not do well. He would like to know what it is primarily for his 's sake. He did not expound on this. He also stated that he did not want a feeding tube. He was willing to get nutrients through his vein. He understands that a lot of this he brought on himself because of his years of high alcohol intake and smoking history. If this is indeed cancer he primarily wants to go home and be comfortable. He has had friends on hospice and he understands that they can be very helpful Consults Consult date: 09/16/23 Requesting physician: Jordon Knox Assessment and Plan Assessment and plan (1) Goals of care, counseling/discussion: Status: Acute (2) Laryngeal mass: Status: Acute (3) Chronic anterior uveitis of right eye: Status: Acute (4) Generalized convulsive epilepsy: Status: Acute (5) Suprasellar mass: Status: Acute (6) COPD (chronic obstructive pulmonary disease): Status: Chronic Assessment and plan: lung nodules stable since last imaging Esophageal mass large?high risk of suffocation and aspiration. Patient is aware of this. He would like a biopsy but is not willing to go to [facility]. He understands that an [facility] will not do a biopsy in our facility. He does not want surgery chemotherapy or radiation. He is not interested in a feeding tube. He is not interested in having a trach or having part of his tongue cut off. Weakness?recommend physical therapy as well is adding glucose to his IV so that he does get some nourishment. TPN is not ordered as I originally was told, he would need a central line which would be very tricky in his case. Since this would not be a bridge but rather and treatment it would not be prudent to start TPN unless he was willing to go through care for his esophageal mass. He wants to get stronger and feels strongly that he needs nutrients. Again will add glucose to his IV CODE STATUS was discussed. He stated that he did not want CPR. He does not want a feeding tube. He is willing to continue IV fluids but only for a time. He is willing to take antibiotics. A COLST form was signed. Original was given to Dana, copy was added to his EMR. Plan is to follow-up with him on to see how he is feeling, whether some of his weakness has improved, and giving him some time to think about his different options. Communicated with Dr. Jacques the above. Qualifiers: COPD type: unspecified COPD Qualified Code(s): J44.9 - Chronic obstructive pulmonary disease, unspecified Review of Systems Narrative: Dana states that he is very weak. He is not able to get out of bed on his own. He is tired. When he eats he regurgitates much of the food. He has A significant amount of mucus in his throat. He enjoys eating and is not happy about being n.p.o. he understands the risk of aspiration because of the large mass. [facility] All Active Problems (Updated 09/16/23 @ 13:54 by Kel Howard MD) Supraglottic mass (Acute) Suprasellar mass (Acute) Anemia (Chronic) Goals of care, counseling/discussion (Acute) Aspiration pneumonitis (Acute) Laryngeal mass (Acute) Dysphagia (Acute) Lower urinary tract symptoms (LUTS) (Acute) Urinary retention (Acute) Pneumonia (Acute) COPD (chronic obstructive pulmonary disease) (Chronic) Adult failure to thrive syndrome (Acute) Chronic anterior uveitis of right eye (Acute) Frequent falls (Acute) Decreased vision of right eye (Acute) Lung nodules (Acute) Hyponatremia (Chronic) 12/2020-133 History of knee surgery (Acute) Smoker (Chronic) 100 plus pack years smoking Low back pain (Acute) History of alcoholism (Acute) Generalized osteoarthrosis (Acute) right knee Generalized convulsive epilepsy (Acute) Gastroesophageal reflux disease (Acute) Benign esophageal stricture (Acute) dilated 07/13 Medical History COVID Pneumonia 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 Father No problems noted. Social History (Updated 09/16/23 @ 02:32 by Bandar Palomares) Smoking/Tobacco Use Status: Current every day Tobacco Type: cigarettes Quit status: considering quitting Second Hand Exposure: Yes Smoking risk assessment performed?: Yes Alcohol Intake: former Drug use: Never Substance use type: does not use Counseling given: Yes Caregiver/Support person: No Household members: spouse Housing: other Communication Needs: None Do you need help understanding health information?: Never Pets and animals: No Sexually active: No Do you think of yourself as: straight/heterosexual Current gender identity: decline to answer What is your relationship status?: How often do you talk on the phone with friends or family?: three or more times per week How often do you get together with friends or relatives?: decline to answer How often do you attend evangelical or pentecostal services?: decline to answer Do you belong to any clubs or organized social groups?: no Panel score (0-1 are the most socially isolated patients): 2 What type of physical activity do you participate in: decline to answer Duration: decline to answer Frequency: decline to answer Danette/Episcopalian: No preference Special danette needs: No Seatbelt use: sometimes Helmet use: Yes Helmet use: always Drive intox or ride w/intox tour driver: No Do you feel safe at home: Yes Do you feel safe in your relationship?: Yes Additional Social history: Lives with Denice in [place]. Disabled since brain abscess/CVA in 1995. Exam Narrative Exam Narrative: Disheveled 67-year-old man who looks older than his stated age. He has a raspy voice. Supple neck. His heart is regular. Lungs fairly limited lung sounds with wheezing on the left. Abdomen is nontender. He does not have edema. He is quite thin. He understands that he has a throat mass. He understands that without a biopsy it is uncertain what the diagnosis is. he understands the risks of not pursuing treatment for this lung mass as well as the risks of pursuing treatment. He looks overwhelmed Results Last Vital Signs Temp 98.6 F 09/16/23 15:16 Pulse 70 09/16/23 15:16 Resp 20 09/16/23 15:16 BP 134/66 09/16/23 15:16 Pulse Ox 94 09/16/23 15:16 Labs 09/15/23 21:07 09/16/23 05:50 Labs: Laboratory Results - last 24 hr 09/15/23 09/16/23 21:07 05:50 WBC 10.50 RBC 3.35 L Hgb 10.5 L Hct 30.3 L MCV 90 MCH 31.3 MCHC 34.7 RDW 11.9 Plt Count 356 MPV 9.5 Immature Gran % 0.3 Neutrophils % 82.5 Lymphocytes % 10.0 Monocytes % 7.1 Eosinophils % 0.0 Basophils % 0.1 Nucleated RBC % 0.0 Absolute Neutrophils 8.66 H Absolute Lymphocytes 1.05 L Absolute Monocytes 0.75 Absolute Eosinophils 0.00 Absolute Basophils 0.01 VBG Lactate 1.2 Sodium 126 L 129 L Potassium 4.4 4.4 Chloride 89 L 92 L Carbon Dioxide 30.8 29.0 Anion Gap 6.2 8.0 BUN 2 L 3 L Creatinine 0.7 0.7 Est GFR (CKD-EPI 2020) 101.62 101.62 Glucose 106 119 H Calcium 8.5 8.9 Total Bilirubin 0.20 AST 16 ALT 17 Alkaline Phosphatase 128 H Total Protein 7.5 Albumin 2.7 L Lipase 36 Procalcitonin < 0.1 Imaging Additional studies: FINDINGS: Neck: Exam is limited by motion. Parotids/submandibular/thyroid gland: Normal. Lymphadenopathy: Small lymph nodes noted in the bilateral vascular space.. Carotids/Jugular: Calcification at the common carotid bulbs. No significant stenosis. Vertebral arteries appear patent. Soft tissues: The floor the mouth is unremarkable. Signal motion in the region of the vocal cords and epiglottis. Marked thickening of the epiglottis. Apparent mass on the right extending from the level of the false cords through the level of the epiglottis. Rough measurements are 3 by 3 x 5 cm. Bones: No fracture. No lytic or blastic lesions. Scoliosis and degenerative changes. Visualized portions of the brain: Mildly enhancing mass in the sella. Some expansion of the sella. Chest: Tracheobronchial tree: Patent where visualized. Mediastinum and Kathrin: No dominant adenopathy or fluid collection. Esophageal thickening could indicate esophagitis. Pulmonary parenchyma: Nodular infiltrate seen at left lower lung base. Minimal nodular infiltrate seen in superior segment right lower lobe. Emphysematous changes at apices. Stable small nodules in right upper lobe.. Pleura: No effusion or pneumothorax. Heart/Aorta: Thoracic aorta non-dilated. The heart is not dilated. Pulmonary arteries: No evidence of emboli. Bones: Multiple old rib fractures again noted. Old L1 compression fractures unchanged. No acute fracture. No lytic or blastic lesions. Soft tissues: Rounded density in the posterior subcutaneous fat likely represents a sebaceous cyst. Visualized portions of the upper abdomen show no acute findings. IMPRESSION: Exam limited by motion however the findings are suspicious for a right-sided neck mass involving the epiglottis and extending down to the level of the vocal cords. Mild diffuse esophageal wall thickening suspicious for esophagitis. Findings consistent with aspiration pneumonitis at left lower lobe and small infiltrate in superior segment right lower lobe. 2 centimeter mass in the sella. It may represent a pituitary adenoma. MRI of the brain with contrast recommended. Laboratory Tests 02/13/23 02/16/23 16:00 06:14 INR 1.6 H D-Dimer 1542 H SARS-CoV-2 (PCR) Positive A Procedures Other Procedure Description/Findings: IMPRESSIONS: Dana presents with severe pharyngeal phase dysphagia, characterized by impaired epiglottic deflection/impaired airway closure during the swallow, resulting in penetration into the airway during the swallow with large quantity aspiration immediately after the swallow. Aspiration occurred consistently with all trialed consistencies. Cough reflex is consistently elicited with aspiration, though not effective enough to fully expectorate aspirated bolus. Pharyngeal coating is appreciated with all trials, primarily in pyriform sinus space, with cough effective to clear towards airway with re-swallow. Swallow safety and efficiency are severely impaired. In addition to being a very high aspiration risk with all consistencies, I do not anticipate patient can meet nutritional needs orally. This clinician had a diya conversation with Dana, explaining findings with review of images, and discussion regarding alternate nutrition. He states I look at a feeding tube like life support, and I don't think I'd want that. He further states that he would like to get a biopsy to know for sure that it is cancer before determining the plan. He states he does not think he would like to pursue treatment but I also need to think about what my wants. Education provided to patient re: risks for aspiration-related illness. At this time while still determining goals of care, he would like to follow [employer] recommendations with the exception that I need to be allowed to drink something expressing high discomfort with just ice chips. Explained Jl Free Water Protocol, in which small single sips of thin water are allowed immediately following oral care, and he would like to move forward with this (see recommendations below). Palliative consult pending to determine goals of care. [employer] to continue to follow for support with family/patient education.
[2023-09-16] MEDS: PHENobarbital 130 MG/ML VIAL 240 MG IVP (21:17)
[2023-09-17 07:29] LABS: Abs Immature Grans 0.02 10^3/uL (0.0-0.06); Absolute Basophil Count 0.01 10^3/uL (0.0-0.2); Absolute Monocyte Count 0.66 10^3/uL (0.1-0.8); Absolute Neutrophil Count 4.57 10^3/uL (1.2-6.7); Basophils % 0.2 %; HCT 32.2 % (40.0-50.0); HGB 11.1 g/dL (13.5-17.5); Immature Grans % 0.3 %; Lymphocytes % 13.2 %; MCH 31.3 pg (27.0-33.0); MCHC 34.5 % (32.0-36.0); MCV 91 fL (80-95); MPV 9.5 fL (8.0-11.0); Monocytes % 10.9 %; Neutrophils % 75.4 %; Platelet Count 318 10^3/uL (130-400); RBC 3.55 10^6/uL (4.36-5.78); RDW 12.2 % (11.8-14.1); RDW-SD 40.6 fL; WBC 6.06 10^3/uL (4.4-10.8)
[2023-09-17 07:40] VITALS: BP 133/64; PULSE 89; RESP 18; TEMP 37.1; O2SAT 92
[2023-09-17 07:51] LABS: ALT 20 U/L (16-63); AST 19 U/L (15-37); Albumin 2.5 g/dL (3.4-5.0); Alkaline Phosphatase 125 U/L (46-116); Anion Gap 7.5 mmol/L (3-11); BUN 6 mg/dL (7-18); Bilirubin, Total 0.22 mg/dL (0.2-1.0); CO2 27.5 mmol/L (21.0-32.0); CREATININE 0.6 mg/dL (0.70-1.30); Calcium 8.5 mg/dL (8.5-10.1); Chloride 95 mmol/L (98-107); Estimated GFR 106.46 (mL/min/1.73m2); Glucose 69 mg/dL (74-106); Potassium 3.8 mmol/L (3.5-5.1); Sodium 130 mmol/L (136-145)
[2023-09-17] MEDS: Normal Saline Flush 10 ML SYR IVP ×2 (08:08→20:25)
[2023-09-17] MEDS: Pantoprazole 40 MG VIAL IVP (08:08)
[2023-09-17] MEDS: levETIRAcetam 750 MG in Normal Saline 100 ML 400 MG IVPB ×2 (08:09→21:28)
[2023-09-17] MEDS: Normal Saline 1,000 ML 75 ML IV (09:33)
--- NOTE | 2023-09-17 09:57 | PDOC.CMPRO ---
Date of service: 09/17/23 Time of Service: 09:57 Care Management Progress Note Progress Note Text Progress Note Text: Dana was sitting up in bed when CM met with him. The conversation had just started when 2 of Dana's friends arrived to visit. CM left with a plan to return later in the day. Dana's Denice with 2 other visitors arrived around 5 pm and asked to meet with CM and Dana. Dana again discussed his feelings about cancer treatment and surgery and is firm in his decision to discharge home with no further interventions. He shared that he had discussed his situation again today with both the hospitalist and Dr Howard and felt comfortable with his decision. CM raised the subject of hospice which he had also discussed with the hospitalist. Dana verbalized not being sure that he wanted to make that transition at this point in time. CM pointed out that hospice is able to obtain necessary equipment such as a hospital bed, very quickly. They are also able to provide additional support for both he and his . Dana agreed to a hospice consult tomorrow so that he and his family could have all of the information needed to make an informed decision. Discharge Potential Discharge Needs: PCP F/U Appt Anticipated Barriers to Discharge: None Identified Patient/Family Education Needs: Review discharge instructions, discuss Ask Me Three Transportation: Private vehicle Plan: Anticipate Dana will be discharged home when medically ready. He may choose to transition to hospice and a consult has been ordered for tomorrow. Dana will follow up with his community providers and plan of care and transport with family. CM will continue to support Dana and his discharge needs. SDOH(Care Management) Screening Will the Patient Participate in the Screening?: Yes Do you worry about having a steady place to live?: no Problems where you live: no known problems In the past 12 months, have you had to go without electric, gas, oil or water in your home?: no Have you or anyone in your house had to go without enough food to eat?: no Has lack of transportation kept you from medical appointments or from doing things needed for daily living?: yes Has anyone in your support network made you feel unsafe for any reason?: no Social Determinants of Health Comments(SDOH Details): pt now back to driving after recent cataract surgery Health Related Social Needs Health related social needs: transportation insecurity(Z59.82)
--- NOTE | 2023-09-17 14:23 | NUR.NOTE ---
Nursing Note: This advertising writer made known by patient of his desires to go home against medical advise, he said : I am not getting nutrients anyway , I would go home and eat what I want, I know my throat might close but at least I satisfy myself. Patient is having viisitors since 11:00, waiting for MD to come in. This advertising writer and Charge Nurse Faraz, assessed patient for signs of stroke, facial drooping on right side but it seems that his baseline accdg to visitors. Patient was asking staff for ice chips or water but this nurse refused because the order is NPO only. Discussed w/ ST and she said will discuss w/ MD this afternoon., but no word yet from them until this time. This advertising writer happened to catched MD Giron in the hallway and he will come to see patient in a little bit.. Patient was reassured by charge nurse. Ice chips was given and will follow up by nursing. Call alex at [facility].
[2023-09-17 15:15] VITALS: BP 128/64; PULSE 80; RESP 18; TEMP 37.4; O2SAT 92
--- NOTE | 2023-09-17 15:33 | PHA.REVIEW2 ---
Pharmacy Admission Review Admission Clinical Review Admission Pharmacy Review: Supraglottic mass (Acute) Suprasellar mass (Acute) Goals of care, counseling/discussion (Acute) Aspiration pneumonitis (Acute) Laryngeal mass (Acute) Dysphagia (Acute) Lower urinary tract symptoms (LUTS) (Acute) Chronic anterior uveitis of right eye (Acute) Generalized convulsive epilepsy (Acute) Gastroesophageal reflux disease (Acute) zonisamide Allergy (Unknown, Verified 09/15/23 20:56) unknown tamsulosin [From Flomax] Adverse Reaction (Severe, Verified 09/15/23 20:56) Swelling/Edema sertraline Adverse Reaction (Intermediate, Verified 09/15/23 20:56) unknown cefuroxime Adverse Reaction (Unknown, Verified 09/15/23 20:56) unknown guaifenesin Adverse Reaction (Unknown, Verified 09/15/23 20:56) unknown Resuscitation Status DNR/DNI Height 5 ft 5 in Weight 63.5 kg Comments Comments/Follow Ups: Watch BP, labs and for med changes. Pharmacy Admission Review Renal Dosing Renal Dosing: BUN 6 mg/dL (7-18) L 09/17/23 07:10 Creatinine 0.6 mg/dL (0.70-1.30) L 09/17/23 07:10 Medications needing adjustments: Reviewed (Crcl ~65.2 mL/min current meds okay) Anticoagulation Anticoagulation: Hgb 11.1 g/dL (13.5-17.5) L 09/17/23 07:10 Hct 32.2 % (40.0-50.0) L 09/17/23 07:10 Plt Count 318 10^3/uL (130-400) 09/17/23 07:10 Creatinine 0.6 mg/dL (0.70-1.30) L 09/17/23 07:10 DVT Prophylaxis: Reviewed (SCDs ordered) Opiate Usage Evaluate Pain Scale/Pains Meds: N/A Relevant Labs Relevant Labs: Sodium 130 mmol/L (136-145) L 09/17/23 07:10 Potassium 3.8 mmol/L (3.5-5.1) 09/17/23 07:10 Chloride 95 mmol/L (98-107) L 09/17/23 07:10 Electrolytes, C-Reactive P, ESR: Reviewed DM Control DM Control: Glucose 69 mg/dL (74-106) L 09/17/23 07:10 DM Control: N/A Cardiac Review BP, HR, EF%: Reviewed (BP has been up and down some and HR has mostly been within normal limits.) QTc Review QTc: N/A IV to PO Switch IV Medications: Reviewed (pt is NPO) Home Meds Home Med List reviewed: Reviewed Relevent Home Meds Not ordered & why?: aspirin, escitalopram, magnesium, omeprazole and sucralfate (NPO). Fluticasone inhaler was d/c'd by provider (see progress note). Current Meds Current Medication Order Review: Reviewed Comments Comments/Follow Ups: Watch BP, labs and for med changes.
--- NOTE | 2023-09-17 16:05 | PGE_ITS ---
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 As noted above he understands that he is not can to get a biopsy of this mass and even if he had a biopsy approved to be cancer he does not want to pursue surgical treatment and refuses to have a PEG tube. We will plan for discharge tomorrow on hospice services. (2) Dysphagia: Status: Acute Assessment and plan: With resultant weight loss and aspiration. Will allow intake of ice chips and clear liquids but no solids. Qualifiers: Dysphagia type: pharyngoesophageal phase Qualified Code(s): R13.14 - Dysphagia, pharyngoesophageal phase (3) Aspiration pneumonitis: Status: Suspected Assessment and plan: He got a dose of levofloxacin for aspiration pneumonia, but CT just showing bronchiolitis and symptoms near baseline this point. Antibiotics were not continueds. Combivent was ordered but he refused it this morning. (4) COPD (chronic obstructive pulmonary disease): Status: Chronic Assessment and plan: Asmanex and Combivent were ordred on scheduled basis but he has refused any inhalers. I have dc Asmanaex as routine use of ICS is not indicated for routine use in COPD and he has hx of thrush from ICS. I did order his Combivent to prn Qualifiers: COPD type: unspecified COPD Qualified Code(s): J44.9 - Chronic obstructive pulmonary disease, unspecified (5) Hyponatremia: Status: Chronic Assessment and plan: chronic. He is getting NS now, which is appropriate as he appeared dry on presentation. Follow. (6) Smoker: Status: Chronic Assessment and plan: [facility] heavy smoker, patient is adamant is he is not going to quit. (7) Gastroesophageal reflux disease: Status: Acute Assessment and plan: Give PPI IV for now until able to take oral Qualifiers: Esophagitis presence: esophagitis presence not specified Qualified Code(s): K21.9 - Gastro-esophageal reflux disease without esophagitis (8) Lower urinary tract symptoms (LUTS): Status: Acute Assessment and plan: monitor for retention. (9) Seizure disorder: Assessment and plan: Give seizure meds IV until it is safe to resume orals or he has g-tube. He did get his phenobarbitol 09/14, got keppra in ED. (10) Stroke: Assessment and plan: In 1995 complicating brain surgery. He is maintained on ASA. Resume when taking po. Qualifiers: CVA mechanism: unspecified Qualified Code(s): I63.9 - Cerebral infarction, unspecified (11) Anemia: Status: Chronic Assessment and plan: mild, normocytic, in the setting of weight loss from dysphagia, laryngeal mass. No known bleeding. 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 Will need MRI for staging of likely squamous cancer question whether this is residual from prior brain abscess, would need comparison films however, in light of laryngeal mass, I would have low threshold for obtaining MRI of brain to r/o metastatic spread However, given that he does not want any radiation or surgical treatment of his laryngeal mass, doing MRI of his brain would not change his treatment as he wants only comfort measures and does not want to consider radiation treatment. (13) Goals of care, counseling/discussion: Status: Acute Assessment and plan: patient decided on DNR/DNI status yesterday after conversation w/ Dr. Nettles who has changed his code status as such. Patient only wants comfort measures and to return home. Subjective Subjective Interval history since last seen: I met with Miguel this afternoon while he was visiting with close friends. Unfortunately his was not present for discussion. Miguel asked his friends to stay during the conversation. Hernia and I discussed the fact that his laryngeal mass is almost 100% certain to be cancer in spite of not having a biopsy. He understands that our anesthesia department will not allow Dr. Howard performed the biopsy here at [facility] due to concern for possible airway obstruction and the need for an emergent surgical airway. He also understands that I spoke with [facility] yesterday and per the ENT fellow and the fellow's discussion with his attending they would recommend the patient be transferred to [facility] on the hospitalist service with consultations with both GI, interventional radiology, and ENT and they would arrange for biopsy at [facility] along with placement of a feeding tube. Dana had a lengthy talk yesterday with a ambulatory care nurse as well as with Shannan Nettles from palliative care medicine and the end result was Dana is adamant he does not want to have a feeding tube and he wants to go home and not be transferred to [facility]. I told him we could arrange that and we would recommend that he go on hospice services. He also understands that speech and language pathologist feels he is not safe to be given oral feedings and is frustrated by this. I told him that I would compromise and allow him to have clear liquids and ice chips but would not be feeding him any solid foods was hospitalized. I did recommend that when he returns home that if he is not can to pursue feeding tube that any nutritional support he receives all be on a liquid form or pur?ed in a modeling director to make it easier to swallow to avoid any acute airway obstruction. He understands that he is still going to aspirate and possibly end up with an aspiration pneumonitis and respiratory failure from this. I did suggest that he could try tucking his chin when he swallows and turning his head to the side to help open up his glottis on provide passage into his esophagus rather than into his trachea. The problem is the laryngeal mass is affecting the epiglottis which prevents protection of his airway. Exam Narrative Exam Narrative: Alert and oriented sitting up in bed talking with his friends no acute distress not using accessory respiratory muscles no stridor Voice is hoarse but audible and understandable Lungs are clear to auscultation with prolonged expiratory phase no rhonchi or wheezing Heart regular rate and rhythm Objective Last Vital Signs Temp 37.4 C 09/17/23 15:15 Pulse 80 09/17/23 15:15 Resp 18 09/17/23 15:15 BP 128/64 09/17/23 15:15 Pulse Ox 92 09/17/23 15:15 Laboratory Results - last 24 hr 09/17/23 07:10 WBC 6.06 RBC 3.55 L Hgb 11.1 L Hct 32.2 L MCV 91 MCH 31.3 MCHC 34.5 RDW 12.2 Plt Count 318 MPV 9.5 Immature Gran % 0.3 Neutrophils % 75.4 Lymphocytes % 13.2 Monocytes % 10.9 Eosinophils % 0.0 Basophils % 0.2 Nucleated RBC % 0.0 Absolute Neutrophils 4.57 Absolute Lymphocytes 0.80 L Absolute Monocytes 0.66 Absolute Eosinophils 0.00 Absolute Basophils 0.01 Sodium 130 L Potassium 3.8 Chloride 95 L Carbon Dioxide 27.5 Anion Gap 7.5 BUN 6 L Creatinine 0.6 L Est GFR (CKD-EPI 2020) 106.46 Glucose 69 L Calcium 8.5 Total Bilirubin 0.22 AST 19 ALT 20 Alkaline Phosphatase 125 H Total Protein 7.0 Albumin 2.5 L Time Spent with Patient Time Spent with Patient: 25-34 minutes Time was spent: preparing to see the patient(eg.review tests), ordering medications,tests, procedures, referring, communicating with other health home health care case manager (nursing and CM), indepentently interpreting results, counseling the patient and care coordination
[2023-09-17] MEDS: Protein Nutritional Supplement 16 GM 1 OUNCE PACKET PO (20:25)
[2023-09-17] MEDS: PHENobarbital 130 MG/ML VIAL 240 MG IVP (20:25)
[2023-09-17 23:35] VITALS: BP 145/65; PULSE 75; RESP 18; TEMP 36.5; O2SAT 94
[2023-09-17] MEDS: Normal Saline 1,000 ML 65 ML IV (23:50)
[2023-09-18 07:35] VITALS: BP 132/65; PULSE 76; RESP 18; TEMP 36.9; O2SAT 92
[2023-09-18] MEDS: levETIRAcetam 750 MG in Normal Saline 100 ML 400 MG IVPB (07:42)
[2023-09-18] MEDS: Protein Nutritional Supplement 16 GM 1 OUNCE PACKET PO ×2 (07:42→19:56)
[2023-09-18] MEDS: Normal Saline Flush 10 ML SYR IVP ×2 (07:42→20:00)
[2023-09-18] MEDS: Pantoprazole 40 MG VIAL IVP (07:43)
--- NOTE | 2023-09-18 09:37 | W.NUTRFU ---
Date of service: 09/18/23 Time of Service: 09:38 Nutrition Note NOTE: Chart reviewed for nutrition interventions due to dysphagia/laryngeal mass and weight loss of 18.2lbs documented over the last 4 months. Confirmed that pt declining PEG tube/artificial feedings and requests to transition to APPRENTICESHIP TRAINING REPRESENTATIVE with discharge anticipated today with home hospice services. He has appropriately been made aware of concerns for eventual aspiration and the need to keep his po intake to liquid/puree consistency. Will monitor for any change in course of care and will be available to make recommendations for any nutrition support desired by pt. Time Spent in Nutritional Counseling and Treatment: 0
--- NOTE | 2023-09-18 14:24 | PGE_ITS ---
Date of Service Date of service: 09/18/23 Time of Service: 14:24 Assessment and Plan Assessment and plan (1) Laryngeal mass: Status: Acute Assessment and plan: Plan to discharge today on hospice; patient refuses to go home until tomorrow, states she has to move things and do things she can't do with him there. Care managers in discussion with patient and regarding discharge planning. (2) Dysphagia: Status: Acute Assessment and plan: With resultant weight loss and aspiration. Will allow intake of ice chips and clear liquids but no solids - patient can have Qualifiers: Dysphagia type: pharyngoesophageal phase Qualified Code(s): R13.14 - Dysphagia, pharyngoesophageal phase (3) Aspiration pneumonitis: Status: Ruled-out (4) COPD (chronic obstructive pulmonary disease): Status: Chronic Assessment and plan: Continue Combivent prn Qualifiers: COPD type: unspecified COPD Qualified Code(s): J44.9 - Chronic obstructive pulmonary disease, unspecified (5) Hyponatremia: Status: Chronic Assessment and plan: chronic. He is getting NS now, which is appropriate as he appeared dry on presentation. Follow. 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 (7) Gastroesophageal reflux disease: Status: Acute Assessment and plan: transitioned to oral Qualifiers: Esophagitis presence: esophagitis presence not specified Qualified Code(s): K21.9 - Gastro-esophageal reflux disease without esophagitis (8) Lower urinary tract symptoms (LUTS): Status: Acute Assessment and plan: monitor for retention. (9) Anemia: Status: Chronic Assessment and plan: mild, normocytic, in the setting of weight loss from dysphagia, laryngeal mass. No known bleeding. Follow Qualifiers: Anemia type: unspecified type Qualified Code(s): D64.9 - Anemia, unspecified (10) Suprasellar mass: Status: Acute Assessment and plan: patient does not want further testing or treatment (11) Goals of care, counseling/discussion: Status: Acute Assessment and plan: patient decided on DNR/DNI status yesterday after conversation w/ Dr. Nettles who has changed his code status as such. Patient only wants comfort measures and to return home. Subjective Subjective Patient reports: no new complaints Interval history since last seen: Meeting with hospice. Patient has chosen to go home on hospice. Exam Narrative Exam Narrative: Alert and oriented sitting up, in no acute distress not using accessory respir atory muscles no stridor Voice is hoarse, speaking in full sentences, managing secretions well. Lungs are clear to auscultation with prolonged expiratory phase no rhonchi or wheezing Heart regular rate and rhythm Objective Last Vital Signs Temp 36.9 C 09/18/23 07:35 Pulse 76 09/18/23 07:35 Resp 18 09/18/23 07:35 BP 132/65 09/18/23 07:35 Pulse Ox 92 09/18/23 07:35 Time Spent with Patient Time Spent with Patient: 25-34 minutes Time was spent: preparing to see the patient(eg.review tests), ordering medications,tests, procedures, referring, communicating with other health small animal caretaker, indepentently interpreting results, counseling the patient and care coordination
[2023-09-18] MEDS: Normal Saline 1,000 ML 65 ML IV (14:51)
--- NOTE | 2023-09-18 14:55 | CMPROGNOTE_ITS ---
Date of service: 09/18/23 Time of Service: 14:55 Care Management Progress Note Progress Note Text Progress Note Text: CM met with Miguel and Susana to review discharge planning and answer questions. CM coordinated Hospice consult this morning, with participating by phone. CM coordinated Speech consult with Miguel and Susana-to review questions re: medications, swallowing, food choices, etc. Discharge Potential Discharge Needs: Consult Consult Services Needed: Speech and Other (Hospice) Anticipated Barriers to Discharge: SDOH (No transportation, requires additional support to prepare home and gather food. ) and Other (Susana and Miguel were not comfortable discharging today, Susana does not drive and needed to gather groceries, and have help moving the couch out to make room for the hospital bed. ) Patient/Family Education Needs: Review discharge instructions, discuss Ask Me Three (Miguel verbalized understanding he could eat what he wanted, he recognized Susana's fears about him choking, as well. ) Transportation: Private vehicle Plan: Miguel will return home tomorrow, [employer] will be delivering hospital bed tomorrow as well. Hospice admission planned for 09/20/23; as reviewed with Karen: kindergarten assistant. Miguel will transport via private vehicle with family/friend, RCT to be coordinated, if needed. SDOH(Care Management) Screening Will the Patient Participate in the Screening?: Yes Do you worry about having a steady place to live?: no Problems where you live: no known problems In the past 12 months, have you had to go without electric, gas, oil or water in your home?: no Have you or anyone in your house had to go without enough food to eat?: no Has lack of transportation kept you from medical appointments or from doing things needed for daily living?: yes Has anyone in your support network made you feel unsafe for any reason?: no Social Determinants of Health Comments(SDOH Details): pt now back to driving after recent cataract surgery Health Related Social Needs Health related social needs: transportation insecurity(Z59.82)
[2023-09-18 15:25] VITALS: BP 139/64; PULSE 75; RESP 18; TEMP 37.2; O2SAT 92
--- NOTE | 2023-09-18 16:01 | W.SPSTP ---
Date of service: 09/18/23 Time of Service: 13:30 Kostas Cortez was contacted in his room after hospice consult completed today. Plan is for him to return home on hospice tomorrow once he has a bed which will allow him to sleep at 30 degree incline for secretion mgmt. He has opted not to move forward with any biopsy or treatment of throat mass and will d/c home with presumptive diagnosis. Objective/Assessment/Plan Assessment Assessment/Objective Patient has made decision to go home on hospice, has turned down any further workup or treatment for presumed throat mass. Plan is for him to go home tomorrow on hospice. Provided education this date including review of MBSS findings, degree of aspiration risk, and risk management considerations. Patient's expressing concern about now knowing what would be safe for him to eat, how to prepare foods and prevent him from choking. CENTRAL SUPPLY ASSISTANT providing education between the difference between aspiration (shown on MBSS to be high risk across all textures) and true choking events with asphyxiation. Discussed different diet levels and ways to prepare foods to prevent choking or rapid onset respiratory failure from aspiration. Patient and his did express understanding of education that he is likely going to be aspirating consistently even with risk management precautions in place, and given he is going to go home on hospice/comfort care, that it will be up to him to decide what foods he does want to eat despite these risks, and where his threshold of tolerance will lie between swallowing comfort, nutrition/efficiency, and safety risk. Spent significant time counseling them on aspiration precautions as below for safest possible consumption of PO intake, as well as additional risk management such as oral care as below. RECOMMENDATIONS: Solids - None. If patient wishes to initiate solid intake at home, recommend L5 Minced/Moist or L4 Purees to reduce risk of airway obstruction. Liquids - As tolerated. While in hospital patient to remain on clear liquids diet. ORAL CARE every 2-3 hrs Medications - Non oral/ via IV while hospitalized. At discharge may consider liquid formulations, or crushed meds in liquid as needed if he is not able to maintain IV access on hospice. Risk Management Strategies:? Very small sips/bites, approx 5mL / teaspoon Encourage avoidance of straws Oral hygiene q4 hours. Use suction swab on all oral surfaces using antiseptic mouthwash. Consider use of oral moisturizer agent HOB elevated at least 30 degrees at all times HOB bolt upright for all PO intake PLAN: CENTRAL SUPPLY ASSISTANT to continue to follow while in-house. Goals: Retirement Goals: Patient will remain free from aspiration-related illness, malnutrition, and dehydration. - Ongoing Short Term Goals: Patient will participate in MBSS for further evaluation of pharyngeal phase of the swallow. - Met Patient will tolerate PO trials for consideration of diet upgrade without overt s/s aspiration across 2/2 visits. - Deferred Patient/family will verbalize comprehension re: dysphagia dx and aspiration precautions - Ongoing Time spent: 30min
[2023-09-18 19:30] VITALS: BP 130/75; PULSE 79; RESP 16; TEMP 36.7; O2SAT 92
[2023-09-18] MEDS: levETIRAcetam Oral Solution 100 MG/ML 750 MG PO (19:49)
[2023-09-18] MEDS: PHENobarbital 64.8 MG TAB 259.2 MG PO (19:49)
[2023-09-18 23:58] VITALS: BP 163/72; PULSE 78; RESP 18; TEMP 36.4; O2SAT 93
[2023-09-19 02:42] VITALS: BP 128/72; PULSE 95; RESP 20; TEMP 37; O2SAT 91
[2023-09-19] MEDS: Protein Nutritional Supplement 16 GM 1 OUNCE PACKET PO (08:05)
[2023-09-19 08:46] VITALS: BP 146/62; PULSE 82; RESP 18; TEMP 36.8; O2SAT 91
[2023-09-19] MEDS: levETIRAcetam Oral Solution 100 MG/ML 750 MG PO ×2 (08:56→22:10)
--- NOTE | 2023-09-19 11:34 | PGE_ITS ---
Date of Service Date of service: 09/19/23 Time of Service: 13:00 Assessment and Plan Assessment and plan (1) Laryngeal mass: Status: Acute Assessment and plan: Plan to discharge today on hospice; patient refuses to go home until tomorrow, states she has to move things and do things she can't do with him there. Care managers in discussion with patient and regarding discharge planning. (2) Dysphagia: Status: Acute Assessment and plan: With resultant weight loss and aspiration. Speech consult: competed Will continue intake of ice chips and clear liquids but no solids Qualifiers: Dysphagia type: pharyngoesophageal phase Qualified Code(s): R13.14 - Dysphagia, pharyngoesophageal phase (3) Aspiration pneumonitis: Status: Ruled-out (4) COPD (chronic obstructive pulmonary disease): Status: Chronic Assessment and plan: Continue Combivent prn Qualifiers: COPD type: unspecified COPD Qualified Code(s): J44.9 - Chronic obstructive pulmonary disease, unspecified (5) Hyponatremia: Status: Chronic Assessment and plan: chronic. 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 (7) Gastroesophageal reflux disease: Status: Acute Assessment and plan: Continue oral therapy w omeprazole Qualifiers: Esophagitis presence: esophagitis presence not specified Qualified Code(s): K21.9 - Gastro-esophageal reflux disease without esophagitis (8) Lower urinary tract symptoms (LUTS): Status: Acute Assessment and plan: monitor for retention. (9) Anemia: Status: Chronic Assessment and plan: mild, normocytic, in the setting of weight loss from dysphagia, laryngeal mass. No known bleeding. 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 Nettles who has changed his code status as such. Patient only wants comfort measures and to return home. Unable to go home today d/t floads D/C in AM if able Discussed with Dr. Knox Subjective Subjective Patient reports: no new complaints, tolerating liquids well, voiding w/o difficulty, bowel movement and afebrile; denies still having pain, diarrhea, nausea, vomiting or shortness of breath Exam Narrative Exam Narrative: Constitutional The patient is sitting in bed comfortable and cooperative during the interview, without acute distress HENMT: Facial structures with normal appearance Neuro:alert and oriented to self, person, place time and situation. No neurological focal deficit Resp: Clear lung bilaterally Cardio: regular rhythm, S1, S2, no murmur, bilateral radial and dorsalis pedis pulses are positive GI: Abdomen is not distended/ flat, soft and non tender, bowel sounds are present : Negative Costovertebral angle tenderness, Back/spine/Pelvis: No back tenderness, normal alignment Integumentary: No lesions or rash on exposed skin Extremities:Equal strength bilaterally lower and upper extremities Psych: RASS 0, congruent mood and normal affect. Objective Last Vital Signs Temp 36.8 C 09/19/23 08:46 Pulse 82 09/19/23 08:46 Resp 18 09/19/23 08:46 BP 146/62 H 09/19/23 08:46 Pulse Ox 91 L 09/19/23 08:46 Time Spent with Patient Time Spent with Patient: >50 minutes Time was spent: preparing to see the patient(eg.review tests), obtaining and/or reviewing separately otained hiistory, ordering medications,tests, procedures, referring, communicating with other health rental boats caretaker, indepentently interpreting results, counseling the patient and care coordination
[2023-09-19 19:42] VITALS: BP 123/69; PULSE 75; RESP 18; TEMP 36.7; O2SAT 91
[2023-09-19] MEDS: PHENobarbital 64.8 MG TAB 259.2 MG PO (19:55)
[2023-09-19] MEDS: Normal Saline Flush 10 ML SYR IVP (19:58)
[2023-09-20 07:18] VITALS: BP 118/57; PULSE 75; RESP 18; TEMP 36.4; O2SAT 94
--- NOTE | 2023-09-20 08:50 | DSE_ITS ---
Date of service: 09/20/23 Time of Service: 08:50 DS: Diagnosis Discharge Diagnosis (1) Laryngeal mass: Status: Acute (2) Dysphagia: Status: Acute (3) Aspiration pneumonitis: Status: Ruled-out (4) COPD (chronic obstructive pulmonary disease): Status: Chronic (5) Hyponatremia: Status: Chronic (6) Smoker: Status: Chronic (7) Gastroesophageal reflux disease: Status: Acute (8) Lower urinary tract symptoms (LUTS): Status: Acute (9) Anemia: Status: Chronic (10) Suprasellar mass: Status: Acute (11) Generalized convulsive epilepsy: Status: Acute (12) Goals of care, counseling/discussion: Status: Acute Discharge Plan Disposition Patient Disposition: Home W/Hospice Services Condition: Poor Discharge Details Reason For Visit: dysphagia, throat mass Admit Date/Time: 09/16/23 00:55 Admit Provider: Bandar Palomares Attending Provider: Bandar Palomares Primary Care Provider: Maco Altamirano Hospital Course Hospital Course: This is a 67-year-old male with a complex medical history including a prior CVA in 1995, 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 He presented to [facility] ED on 09/15/23 with progressive dysphagia and hoarseness over the past 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 There were no complaints of hemoptysis or otalgia. He is a current smoker and recovering alcoholic. Family history is significant for various cancers. The patient has experienced significant recent weight loss, and symptoms have been rapidly worsening. Upon evaluation by Dr. 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 A diagnosis of malignancy was discussed with the patient, who expressed understanding of the prognosis but declined chemotherapy, radiation therapy, or surgical intervention. He did request a tissue diagnosis. Given the complexity of the case and anesthesia concerns, it was decided that biopsy should be performed at a tertiary care center. Options discussed included transferring the patient for biopsy or considering hospice care in alignment with the patient's wishes against aggressive treatment. After discussion with his , the patient opted for home hospice care. The patient and his met with the multimedia services coordinator, and arrangements were made for home hospice services upon discharge. The patient's diet will focus on comfort and pleasure, with recommendations from Speech-Language Pathology for smaller, well-chewed pieces to minimize the risk of choking. The patient will have follow-up with his primary care practitioner within 7 days of discharge. Discussed with Dr. Knox Home Meds and New Rx's Prescriptions: New esomeprazole magnesium [address] For Susp In Packet 40 mg NG DAILY@0730 Qty: 30 0RF levetiracetam 100 mg/mL Solution 750 mg PO BID Qty: 473 0RF phenobarbital 32.4 mg Tablet 64.8 mg PO QID Qty: 180 0RF Rx Instructions: crush Continued Combivent Respimat 20-100 mcg/actuation mist 1 puff inhalation QID Qty: 4 11RF fluticasone propionate 100 mcg/actuation blister with device 1 inh inhalation Q12H Qty: 60 12RF ArmonAir Digihaler 113 mcg/actuation aero powdr breath act w/sensor 1 inh inhalation BID Qty: 1 6RF morphine concentrate 100 mg/5 mL (20 mg/mL) solution 5 - 20 mg PO Q1-4H MDD 480 PRN (Reason: pain) Qty: 30 0RF Rx Instructions: hospice patient Inhaler, Assist Devices [Pocket Chamber] 1 ea miscellaneous DIRECTED Qty: 0 0RF nystatin 100,000 unit/mL suspension 1 ml PO DAILY Patient Comments: TAKE FOUR MILLILITERS BY MOUTH FOUR TIMES A DAY FOR 7 DAYS; SWISH IN THE MOUTH AND RETAIN FOR LONG POSSIBLE (SEVERAL MINUTES) BEFORE S Held escitalopram oxalate [Lexapro] 10 mg tablet 10 mg PO DAILY Qty: 90 3RF Hold Instructions: Resume on 09/19/23. Solution on discharge Discontinued omeprazole 20 mg capsule,delayed release(DR/EC) 20 mg PO DAILY Qty: 90 1RF sucralfate [Carafate] 1 gram tablet 1 g PO BID PRN (Reason: gerd) Qty: 180 4RF aspirin 81 mg tablet,delayed release (DR/EC) 81 mg PO BID Qty: 90 3RF vitamin B complex Capsule 1 cap PO .QOD magnesium oxide 400 mg (241.3 mg magnesium) tablet 400 mg PO DAILY Qty: 90 4RF levetiracetam [Keppra] 750 mg tablet 750 mg PO BID Qty: 180 3RF phenobarbital 64.8 mg tablet 259.2 mg PO HS Qty: 360 3RF lorazepam 1 mg tablet 1 mg PO Q4H PRN PRN (Reason: anxiety) Qty: 6 0RF Rx Instructions: hospice patient No Action phenobarbital 32.4 mg tablet 64.8 mg PO QID Qty: 240 0RF Rx Instructions: Crush Discharge Instructions Instructions: Full Liquid Diet, Surgical treatment for head and neck cancer Referrals: Maco Altamirano NP [Primary Care Provider] - 09/30/23 11:40 am () Activity:: Activity as Tolerated Equipment/Supplies:: No Equipment Needed Diet:: Liquid as tolerated Discharge Orders Discharge Orders: Discharge Order (Routine); Ordered 09/20/23 Ordered By: Bernadette Washburn DS: Summary Time Spent with Patient providing and/or coordinating discharge services: Greater than 30 minutes Status at Discharge Functional status at discharge: uses cane/walker Overall status at discharge: patient is progressing back to baseline Mental Status: mental status grossly normal Speech and Movement: speech and movement normal Mood: congruent mood Affect: normal affect Quality:SDOH Health Related Social Needs: Health related social needs transpo insecurity Exam Narrative Exam Narrative: Constitutional HENMT: Facial structures with normal appearance Neuro:alert and oriented to self, person, place time and situation. No neurological focal deficit Resp: Clear lung bilaterally Cardio: regular rhythm, S1, S2, no murmur, bilateral radial and dorsalis pedis pulses are positive GI: Abdomen is not distended/ flat, soft and non tender, bowel sounds are present : Negative Costovertebral angle tenderness, Back/spine/Pelvis: No back tenderness, normal alignment Integumentary: No lesions or rash on exposed skin Psych: RASS 0, congruent mood and normal affect. Psych Mental Status: mental status grossly normal Speech and Movement: speech and movement normal Mood: congruent mood Affect: normal affect DS: Data Vitals/I&O Vitals and I&O: Vital Signs Temperature 36.4 C L 09/20/23 07:18 Temperature Source Tympanic 09/20/23 07:18 Pulse 75 09/20/23 07:18 Pulse Rhythm Regular 09/19/23 20:06 Pulse 74 09/16/23 01:50 Respiratory Rate 18 09/20/23 07:18 Respiratory Effort Normal 09/19/23 20:06 Respiratory Depth Normal 09/19/23 20:06 Respiratory Pattern Normal 09/19/23 20:06 Blood Pressure 118/57 L 09/20/23 07:18 Blood Pressure Mean 77 09/16/23 07:20 Blood Pressure Position Supine 09/16/23 02:32 Pulse Oximetry 94 09/20/23 07:18 Oxygen Delivery Method Room Air 09/20/23 07:18 Oxygen Flow Rate 0 09/20/23 07:18 Pain Level 0 09/20/23 07:18 Comment arrival to unit 09/16/23 02:22 Intake & Output 09/19/23 09/19/23 09/20/23 11:59 23:59 11:59 Intake Total 200 / 200 Output Total 900 / 1950 1050 / 1950 750 / 750 Balance -900 / -1750 -850 / -1750 -750 / -750 Weight 60 kg Intake: Oral 200 / 200 Output: Urine 900 / 1950 1050 / 1950 750 / 750 Other: Urine Color Yellow Yellow Yellow Urine Appearance Clear Clear Clear Comment 1 large void at commode. smear bm urine Stool Size Large Stool Characteristics Soft Voiding Methods Bedside Commode Bedside Commode PFS All Active Problems (Updated 09/18/23 @ 15:05 by Elva Goode NP) Supraglottic mass (Acute) Suprasellar mass (Acute) Anemia (Chronic) Goals of care, counseling/discussion (Acute) Laryngeal mass (Acute) Dysphagia (Acute) Lower urinary tract symptoms (LUTS) (Acute) Urinary retention (Acute) Pneumonia (Acute) COPD (chronic obstructive pulmonary disease) (Chronic) Decreased vision of right eye (Acute) Adult failure to thrive syndrome (Acute) Chronic anterior uveitis of right eye (Acute) Frequent falls (Acute) Lung nodules (Acute) Hyponatremia (Chronic) 12/2020-133 History of knee surgery (Acute) Smoker (Chronic) 100 plus pack years smoking Low back pain (Acute) History of alcoholism (Acute) Generalized osteoarthrosis (Acute) right knee Generalized convulsive epilepsy (Acute) Gastroesophageal reflux disease (Acute) Benign esophageal stricture (Acute) dilated 07/13 Medical History COVID Pneumonia 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 Father No problems noted. Social History (Updated 09/16/23 @ 02:32 by Bandar Palomares) Smoking/Tobacco Use Status: Current every day Tobacco Type: cigarettes Quit status: considering quitting Second Hand Exposure: Yes Smoking risk assessment performed?: Yes Alcohol Intake: former Drug use: Never Substance use type: does not use Counseling given: Yes Caregiver/Support person: No Household members: spouse Housing: other Communication Needs: None Do you need help understanding health information?: Never Pets and animals: No Sexually active: No Do you think of yourself as: straight/heterosexual Current gender identity: decline to answer What is your relationship status?: How often do you talk on the phone with friends or family?: three or more times per week How often do you get together with friends or relatives?: decline to answer How often do you attend confucianism or holiness services?: decline to answer Do you belong to any clubs or organized social groups?: no Panel score (0-1 are the most socially isolated patients): 2 What type of physical activity do you participate in: decline to answer Duration: decline to answer Frequency: decline to answer Danette/Moravian: No preference Special danette needs: No Seatbelt use: sometimes Helmet use: Yes Helmet use: always Drive intox or ride w/intox truck driver heavy: No Do you feel safe at home: Yes Do you feel safe in your relationship?: Yes Additional Social history: Lives with Denice in [place]. Disabled since brain abscess/CVA in 1995. Time Spent with Patient Time Spent with Patient: 45-69 minutes Time was spent: preparing to see the patient(eg.review tests), ordering medications,tests, procedures, referring, communicating with other health palliative care nurse practitioner, indepentently interpreting results, counseling the patient and care coordination
[2023-09-20] MEDS: levETIRAcetam Oral Solution 100 MG/ML 750 MG PO (08:55)
--- NOTE | 2023-09-20 17:52 | CMDISCH_ITS ---
Date of service: 09/20/23 Time of Service: 17:52 LACE Index Scoring Tool Questions: Length of Stay (in days): 4 - 6 Was the patient admitted via the E.D.?: Yes Comorbidities: Chronic Pulmonary Disease and Any Tumor E.D. Visits: 0 Answers: Total Score: 12 Risk of Readmission: High Risk Care Management Discharge Plan Reason for Hospitalization: Throat mass with dysphagia Discharge Plan: Miguel will return home to be admitted to hospice; Carolina NOLASCO delivered hospital bed to permit Miguel to remain at 30 degrees-more upright as recommended. automobile body worker to support in care planning as well. Miguel will transport via private vehicle with family/friend. Patient/Family Education Needs: Hospice consult, LTC navigation-LTM application. Services Needed at Discharge: DME Agency and Home Health Care Services SDOH Health Related Social Needs: Health related social needs transpo insecurity Health related social needs: transportation insecurity(Z59.82)
== END 2023-09-20 11:37 | disposition hospice, home (50) | DRG 147 ==
LOC: ER 09-16 01:42 → ICU 09-16 02:28 → MS 09-16 15:03
PROVIDERS: Internal Medicine; Admitting Provider Family Medicine; Emergency Provider Physician Assistant; PCP Nurse Practitioner Family; Visit Provider Family Medicine
DX: C32.1 Malignant neoplasm of supraglottis (principal); E87.1 Hypo-osmolality and hyponatremia; J44.0 Chronic obstructive pulmonary disease with (acute) lower respiratory infection; R13.14 Dysphagia, pharyngoesophageal phase; F17.200 Nicotine dependence, unspecified, uncomplicated; K21.9 Gastro-esophageal reflux disease without esophagitis; R49.0 Dysphonia; R63.4 Abnormal weight loss; F10.21 Alcohol dependence, in remission; D64.9 Anemia, unspecified; R33.9 Retention of urine, unspecified; R29.6 Repeated falls; R91.8 Other nonspecific abnormal finding of lung field; M54.50 Low back pain, unspecified; M15.9 Polyosteoarthritis, unspecified; G40.409 Other generalized epilepsy and epileptic syndromes, not intractable, without status epilepticus; Z68.22 Body mass index [BMI] 22.0-22.9, adult
CPT/HCPCS: 31505; 00123; 36415; 70491; 80048; 80053; 83690; 84145; 92526; 92610; 96361; 96365; 96368; 96375; 99285; 71260; 74221; 83605; 85025; 99223; 99231; 99233; 99239; J0131; J1100; J1885; J1953; J1956; J2470; J2560; J3490